=== PATIENT | female | born 1950 | race Caucasian/White ===

== ENCOUNTER 2020-01-17 17:21 | Outpatient (REF) | payer MEDICARE, OTHER, SELFPAY ==
--- NOTE | 2020-01-17 | MM_ITS ---
EXAMINATION: MM SCREENING DIGITAL BREAST TOMOSYNTHESIS, BILATERAL CLINICAL INFORMATION: Screening. Asymptomatic. Family history breast cancer in mother, age 60. The lifetime risk of breast cancer based on the Tyrer-Cuzick Model is 6%. COMPARISON: Mammography: 08/02/2018, 07/13/2017, 05/07/2016 TECHNIQUE: Digital breast tomosynthesis is performed in both the craniocaudal and mediolateral oblique views along with computer-aided detection (CAD). Synthesized 2D images are generated from the tomosynthesis. Additional left CC view is provided. FINDINGS: There are scattered areas of fibroglandular density (ACR BI-RADS breast composition Category b). Breast tissue composition borders on heterogeneously dense. There are no significant changes from prior studies. There are no significant masses, abnormal calcifications, or other abnormalities. IMPRESSION: No significant changes from prior studies. ASSESSMENT: BI-RADS 1: Negative RECOMMENDATION: Routine annual mammography screening. This patient's information was entered into a reminder system with a target due date for their next mammogram.
== END 2020-01-17 17:22 | disposition home or self-care (01) ==
LOC: HO.MAMMO 17:21
PROVIDERS: Visit Provider Internal Medicine
DX: Z12.31 Encounter for screening mammogram for malignant neoplasm of breast (principal)
CPT/HCPCS: 77063; 77067

== ENCOUNTER 2020-01-24 13:32 | Emergency (ER) | payer MEDICARE, BC, SELFPAY ==
--- NOTE | 2020-01-24 16:14 | PC.NURSE ---
called x 1 for triage
[2020-01-24 16:21] VITALS: BP 124/61; PULSE 85; RESP 16; TEMP 36.6; O2SAT 97; BMI 44.9
[2020-01-24 16:49] LABS: Glucose Urine UA NEG (NEG); Leukocyte Esterase Urine 1+ (NEG); Nitrite Urine NEG (NEG); PH 5.5 (5.0-8.0); Specific Gravity - Urine 1.015 (1.005-1.025); Urine Blood 3+ (NEG); Urine Ketones NEG (NEG); Urine Protein TRACE MG/DL (NEG-TRACE)
[2020-01-24 16:50] LABS: Appearance Urine HAZY; Color Urine YELLOW
[2020-01-24 17:00] LABS: Bacteria Urine 1+ /LPF; Squamous Epithelial Cell Urine 1+ /LPF
[2020-01-24 18:16] VITALS: BP 104/47; PULSE 82; RESP 16; TEMP 36.6; O2SAT 97
--- NOTE | 2020-01-24 18:22 | ED.FEMALEGU ---
HPI - Female Genitourinary General Chief complaint: Urogenital-Female Stated complaint: blood in urine Time Seen by Provider: 01/24/20 17:18 Source: patient Mode of arrival: ambulatory Limitations: no limitations History of Present Illness HPI Narrative: 69-year-old female history of multiple frequent UTI, patient was diagnosed recently with UTI at urgent care patient was placed on antibiotic then patient 2 days later was called again and antibiotic was changed according to urine sensitivity culture. Patient owns finishing Macrobid as an antibiotic but patient noticed today having blood in the urine slight discomfort in her lower back. Related Data Allergies Allergy/AdvReac Type Severity Reaction Status Date / Time No Known Allergies Allergy Unverified 12/21/19 15:34 Review of Systems Review of Systems: all other systems are reviewed and are negative Constitutional: Reports as per HPI and Reports no additional constitutional complaints Eyes: Reports as per HPI and Reports no additional eye complaints Reports system reviewed and no additional complaints, except as documented Cardiovascular: Reports as per HPI and Reports no additional cardiovascular complaints Respiratory: Reports as per HPI and Reports no additional respiratory complaints Gastrointestinal: Reports as per HPI and Reports no additional gastrointestinal complaints Genitourinary: Reports no additional female genitourinary complaints Musculoskeletal: Reports no additional musculoskeletal complaints Skin/Breast: Reports system reviewed and no additional complaints, except as docu Psychiatric: Reports no additional psychiatric complaints Endocrine: Reports no additional endocrine complaints Hematologic/Lymphatic: Reports no additional hematologic/lymphatic complaints Allergic/Immunologic: Reports no additional allergic/immunologic complaints Reports system reviewed and no additional complaints, except as documented and Reports Abnormal speech present [facility] Past Medical History Medical History Kidney stones Social History Social History Advance Directives: No Advance Directives Information Provided: Yes Physical Exam Vital Signs: Vital Signs: Vital Signs Temp Pulse Resp BP Pulse Ox 01/24/20 18:16 97.8 F 82 16 104/47 L 97 01/24/20 16:21 97.9 F 85 16 124/61 97 Body Mass Index 44.9 vital signs have been reviewed as normal and appeared to be correct. Blood pressure normal. Heart rate normal. Respiration rate normal. Temperature normal. Oxygen saturation normal. Appearance: Alert. Oriented X3. No acute distress. Head: Normal external exam. Normocephalic. Atraumatic. No Avendaño signs noted. No raccoon eyes noted Eyes: PERRLA. EOMI. Conjunctiva and sclera normal. Eyelids normal. ENT: EAC normal. TM's Normal. Pharynx normal. Uvula midline. Moist mucous membranes. No trismus noted. No drooling noted. No muffled voice noted. Neck: Normal inspection. Neck supple. FROM. No adenopathy. Thyroid Normal. No meningeal signs. No neck mass noted. CVS: Normal heart rate and rhythm. Heart sound normal. No murmurs noted. Pulses normal throughout. Respiratory: No respiratory distress. Painless inspiration. Breath sounds normal. No wheezes/rales/rhonchi noted. Chest nontender. No accessory muscle usage noted or decreased air movement noted. Abdomen: Soft and nontender. Bowel sounds normal in all 4 quadrants. No distention noted. No organomegaly noted. No visible injury noted. Back: No CVA tenderness. Full range of motion noted. Skin: Skin warm and dry. Normal skin color. Normal skin turgor. No rashes/lesions/lacerations noted. Extremities: No lower extremity edema. Extremities exhibit normal range of motion. Extremities nontender. Neuro: Oriented X 3. No motor deficit. No sensory deficit. Reflexes normal. Course Course Course Narrative: 69-year-old female with frequent UTIs, patient was placed on antibiotic by urgent care then was changed, patient noticed she has been having blood in the urine, and bilateral flank pain. Patient almost finished her antibiotic (Macrobid). Will check patient's blood and vital sign. MDM - Female Genitourinary MDM Narrative Medical decision making narrative: patient eloped from the emergency department before getting labs or been fully evaluated. Lab Data Labs: Lab Results 01/24/20 Range/Units 16:41 Urine Color YELLOW Urine Appearance HAZY Urine pH 5.5 (5.0-8.0) Ur Specific [place] 1.015 (1.005-1.025) Urine Protein TRACE (NEG-TRACE) MG/DL Urine Glucose (UA) NEG (NEG) MG/DL Urine Ketones NEG (NEG) MG/DL Urine Blood 3+ H (NEG) Urine Nitrite NEG (NEG) Ur Leukocyte Esterase 1+ H (NEG) Urine RBC 15-29 H (0) /HPF Urine WBC 1-4 (0-4) /HPF Ur Squamous Epith Cells 1+ /LPF Urine Bacteria 1+ /LPF Discharge Plan Discharge Patient Disposition: Elopement Discharge Date/Time: 01/24/20 19:09
--- NOTE | 2020-01-24 19:04 | PC.NURSE ---
PT IS NOT AT BEDSIDE. MD AWARE.
== END 2020-01-24 19:09 | disposition left against medical advice (07) ==
PROVIDERS: Emergency Provider Emergency Medicine; PCP Internal Medicine
DX: R10.9 Unspecified abdominal pain (principal); R31.9 Hematuria, unspecified; F17.210 Nicotine dependence, cigarettes, uncomplicated; Z87.440 Personal history of urinary (tract) infections
CPT/HCPCS: 81001; 87086; 99283

== ENCOUNTER 2020-01-25 11:12 | Outpatient (REF) | payer MEDICARE, OTHER, SELFPAY | END 2020-01-25 11:13 | disposition home or self-care (01) | LOC: HO.LAB 11:12 | PROVIDERS: Visit Provider Nurse Practitioner Family | DX: Z13.9 Encounter for screening, unspecified (principal) | CPT/HCPCS: 87086 ==

== ENCOUNTER 2020-01-31 13:14 | Outpatient (REF) | payer MEDICARE, OTHER, SELFPAY ==
[2020-01-31 13:51] LABS: Glucose Urine UA NEG (NEG); Leukocyte Esterase Urine NEG (NEG); Nitrite Urine NEG (NEG); Urine Blood 3+ (NEG); Urine Ketones NEG (NEG); Urine Protein NEG (NEG-TRACE)
[2020-01-31 13:55] LABS: Appearance Urine CLEAR; Color Urine YELLOW
[2020-01-31 13:59] LABS: Squamous Epithelial Cell Urine 4+ /LPF
== END 2020-01-31 13:15 | disposition home or self-care (01) ==
LOC: HO.HMGCLDS 13:14
PROVIDERS: PCP Internal Medicine; Visit Provider Internal Medicine
DX: R30.0 Dysuria (principal); E78.9 Disorder of lipoprotein metabolism, unspecified; G47.9 Sleep disorder, unspecified; F41.1 Generalized anxiety disorder
CPT/HCPCS: 81001

== ENCOUNTER 2020-02-20 15:47 | Outpatient (REF) | payer MEDICARE, BC, SELFPAY | END 2020-02-20 15:48 | disposition home or self-care (01) | LOC: HO.LAB 15:47 | PROVIDERS: PCP Internal Medicine; Visit Provider Internal Medicine | DX: Z20.828 Contact with and (suspected) exposure to other viral communicable diseases (principal) | CPT/HCPCS: C9803; U0003 ==

== ENCOUNTER 2020-05-01 12:01 | Outpatient (REF) | payer MEDICARE, BC, SELFPAY ==
[2020-05-01 14:48] LABS: Alanine Aminotransferase 14 U/L (0-31); Albumin Level 4.3 g/dL (3.5-5.0); Alkaline Phosphatase 58 U/L (39-117); Anion Gap 16 (12-20); Aspartate Amino Transferase 22 U/L (5-31); Bilirubin Direct 0.2 mg/dL (0.0-0.5); Bilirubin Total 0.7 mg/dL (0.0-1.0); Blood Urea Nitrogen 20 mg/dL (9-16); Calcium 9.1 mg/dL (8.4-10.2); Carbon Dioxide 23 mmol/L (22-29); Chloride 103 mmol/L (96-108); Estimated Glomerular Filt Rate > 60; Glucose Random 110 mg/dL (60-115); Potassium 4.9 mmol/l (3.3-5.1); Sodium 137 mmol/L (135-145); Total Protein 7.1 g/dL (6.5-8.0)
[2020-05-02 02:13] LABS: LDL Cholesterol Direct 170 mg/dL (<100)
== END 2020-05-01 12:02 | disposition home or self-care (01) ==
LOC: HO.HMGCLDS 12:01
PROVIDERS: PCP Internal Medicine; Visit Provider Internal Medicine
DX: E78.9 Disorder of lipoprotein metabolism, unspecified (principal); G47.9 Sleep disorder, unspecified; F41.1 Generalized anxiety disorder
CPT/HCPCS: 36415; 80048; 80076; 83721

== ENCOUNTER 2021-01-28 12:04 | Outpatient (REF) | payer MEDICARE, BC, SELFPAY ==
[2021-01-28 14:10] LABS: Alanine Aminotransferase 10 U/L (0-31); Albumin Level 4.2 g/dL (3.5-5.0); Alkaline Phosphatase 58 U/L (39-117); Aspartate Amino Transferase 19 U/L (5-31); Bilirubin Direct 0.2 mg/dL (0.0-0.5); Bilirubin Total 0.5 mg/dL (0.0-1.0); Cholesterol 187 mg/dL; HDL Cholesterol 54 mg/dL; LDL Cholesterol Calculated 112 mg/dl; Total Protein 6.7 g/dL (6.5-8.0); Triglycerides 108 mg/dL
== END 2021-01-28 12:05 | disposition home or self-care (01) ==
LOC: HO.HMGCLDS 12:04
PROVIDERS: PCP Internal Medicine; Visit Provider Internal Medicine
DX: E78.9 Disorder of lipoprotein metabolism, unspecified (principal)
CPT/HCPCS: 36415; 80061; 80076

== ENCOUNTER 2021-02-20 13:48 | Outpatient (REF) | payer MEDICARE, BC, SELFPAY ==
--- NOTE | ~2021-02-20 | MM_ITS ---
EXAMINATION: MM SCREENING DIGITAL BREAST TOMOSYNTHESIS, BILATERAL CLINICAL INFORMATION: Screening. Asymptomatic. The lifetime risk of breast cancer based on the Tyrer-Cuzick Model is 7%. COMPARISON: Mammography: 01/17/2020 and prior exams dating back to 05/09/2012 TECHNIQUE: Digital breast tomosynthesis is performed in both the craniocaudal and mediolateral oblique views along with computer-aided detection (CAD). Synthesized 2D images are generated from the tomosynthesis. Additional left MLO view is provided. FINDINGS: There are scattered areas of fibroglandular density (ACR BI-RADS breast composition Category b). There are no significant masses, abnormal calcifications, or other abnormalities. Breast tissue composition borders on heterogeneously dense in the outer quadrants similar to prior studies with no interval mass or architectural abnormality. No abnormal calcifications. MM/MM tomosynthesis screening BI IMPRESSION: No mammographic evidence of malignancy. ASSESSMENT: BI-RADS 1: Negative RECOMMENDATION: Routine annual mammography screening. This patient's information was entered into a reminder system with a target due date for their next mammogram.
== END 2021-02-20 13:49 | disposition home or self-care (01) ==
LOC: HO.MAMMO 13:48
PROVIDERS: PCP Internal Medicine; Visit Provider Internal Medicine
DX: Z12.31 Encounter for screening mammogram for malignant neoplasm of breast (principal)
CPT/HCPCS: 77063; 77067

== ENCOUNTER 2021-08-12 08:47 | Outpatient (REF) | payer MEDICARE, BC, SELFPAY ==
[2021-08-12 12:03] LABS: Alanine Aminotransferase 13 U/L (0-31); Albumin Level 4.1 g/dL (3.5-5.0); Alkaline Phosphatase 52 U/L (39-117); Anion Gap 11 (12-20); Aspartate Amino Transferase 19 U/L (5-31); Bilirubin Total 0.4 mg/dL (0.0-1.0); Blood Urea Nitrogen 22 mg/dL (9-16); Calcium 9.4 mg/dL (8.4-10.2); Carbon Dioxide 27 mmol/L (22-29); Chloride 104 mmol/L (96-108); Estimated Glomerular Filt Rate > 60; Glucose Random 103 mg/dL (60-115); Potassium 4.7 mmol/L (3.3-5.1); Sodium 137 mmol/L (135-145); Total Protein 6.9 g/dL (6.5-8.0)
== END 2021-08-12 08:48 | disposition home or self-care (01) ==
LOC: HO.HMGCLDS 08:47
PROVIDERS: Visit Provider Internal Medicine
DX: E78.9 Disorder of lipoprotein metabolism, unspecified (principal)
CPT/HCPCS: 36415; 80053

== ENCOUNTER 2022-02-20 09:32 | Outpatient (REF) | payer MEDICARE, BC, SELFPAY ==
[2022-02-20 11:34] LABS: MANUAL DIFF FLAG NO
[2022-02-20 11:46] LABS: Basophils Absolute Auto 0.1 X10*3/uL (0.0-0.2); Basophils Percent Auto 0.9 % (0-2); Eosinophils Absolute Auto 0.1 X10*3/uL (0.0-0.4); Eosinophils Percent Auto 1.4 % (0-4); Hematocrit 41.6 % (37.0-47.0); Hemoglobin 13.1 g/dl (12.0-16.0); Imm Gran Abs Auto 0.02 X10*3/uL (0.00-0.03); Imm Gran Pct Auto 0.4 % (0.0-0.4); Lymphocytes Absolute Auto 1.5 X10*3/uL (1.2-4.9); Lymphocytes Percent Auto 27.5 % (20-40); Mean Corpuscular HGB Conc 31.5 g/dl (31.0-35.0); Mean Corpuscular Hemoglobin 30.5 pg (27.0-33.0); Mean Platelet Volume 10.3 fL (9.4-12.3); Monocytes Absolute Auto 0.5 X10*3/uL (0.1-1.2); Monocytes Percent Auto 8.4 % (2-11); Neutrophils Absolute Auto 3.4 x10*3/uL (2.0-8.3); Neutrophils Percent Auto 61.4 % (45-73); Platelet Count 253 X10*3/uL (160-400); Red Blood Count 4.29 X10*6/uL (4.20-5.50); Red Cell Distribution Width 13.8 % (11.0-16.0); White Blood Count 5.6 X10*3/uL (4.8-10.8)
[2022-02-20 12:32] LABS: Alanine Aminotransferase 15 U/L (0-31); Alkaline Phosphatase 62 U/L (39-117); Anion Gap 14 (12-20); Aspartate Amino Transferase 19 U/L (5-31); Bilirubin Total 0.4 mg/dL (0.0-1.0); Blood Urea Nitrogen 23 mg/dL (9-16); Calcium 9.6 mg/dL (8.4-10.2); Carbon Dioxide 28 mmol/L (22-29); Chloride 104 mmol/L (96-108); Cholesterol 260 mg/dL; Estimated Glomerular Filt Rate > 60; Glucose Fasting 106 mg/dL (60-99); HDL Cholesterol 59 mg/dL; LDL Cholesterol Calculated 178 mg/dl; Potassium 4.9 mmol/L (3.3-5.1); Sodium 141 mmol/L (135-145); Total Protein 7.1 g/dL (6.5-8.0); Triglycerides 115 mg/dL
[2022-02-20 12:59] LABS: Albumin Level 4.2 g/dL (3.5-5.0)
== END 2022-02-20 09:33 | disposition home or self-care (01) ==
LOC: HO.HMGCLDS 09:32
PROVIDERS: PCP Internal Medicine; Visit Provider Internal Medicine
DX: E78.9 Disorder of lipoprotein metabolism, unspecified (principal); F19.20 Other psychoactive substance dependence, uncomplicated; F41.1 Generalized anxiety disorder; G47.9 Sleep disorder, unspecified; Z72.0 Tobacco use
CPT/HCPCS: 36415; 80053; 80061; 85025

== ENCOUNTER 2022-04-29 12:32 | Outpatient (REF) | payer MEDICARE, SELFPAY ==
--- NOTE | ~2022-04-29 | MM_ITS ---
EXAMINATION: MM SCREENING DIGITAL BREAST TOMOSYNTHESIS, BILATERAL CLINICAL INFORMATION: Screening. Asymptomatic. The lifetime risk of breast cancer based on the Tyrer-Cuzick Model is 6%. COMPARISON: Mammography: 02/20/2021, 01/17/2020, 08/02/2018, 07/13/2017 TECHNIQUE: Digital breast tomosynthesis is performed in both the craniocaudal and mediolateral oblique views along with computer-aided detection (CAD). Synthesized 2D images are generated from the tomosynthesis. FINDINGS: The breasts are heterogeneously dense, which may obscure small masses (ACR BI-RADS breast composition Category c). There are no significant masses, abnormal calcifications, or other abnormalities. Breast tissue composition borders on average fibroglandular. Parenchymal pattern is similar to prior studies. There is a small round nodular asymmetry mid medial right breast on CC view similar to the prior studies. No developing density or architectural abnormality. The axilla are unremarkable. No significant changes. MM/MM tomosynthesis screening BI IMPRESSION: No mammographic evidence of malignancy. ASSESSMENT: BI-RADS 2: Benign RECOMMENDATION: Routine annual mammography screening. This patient's information was entered into a reminder system with a target due date for their next mammogram.
== END 2022-04-29 12:33 | disposition home or self-care (01) ==
LOC: HO.MAMMO 12:32
PROVIDERS: Visit Provider Internal Medicine
DX: Z12.31 Encounter for screening mammogram for malignant neoplasm of breast (principal)
CPT/HCPCS: 77063; 77067

== ENCOUNTER 2022-08-11 12:37 | Outpatient (REF) | payer MEDICARE, SELFPAY ==
[2022-08-11 14:54] LABS: Alanine Aminotransferase 11 U/L (0-31); Albumin Level 3.9 g/dL (3.5-5.0); Alkaline Phosphatase 50 U/L (39-117); Anion Gap 13 (12-20); Aspartate Amino Transferase 19 U/L (5-31); Bilirubin Total 0.6 mg/dL (0.0-1.0); Blood Urea Nitrogen 18 mg/dL (9-16); Calcium 9.1 mg/dL (8.4-10.2); Carbon Dioxide 23 mmol/L (22-29); Chloride 105 mmol/L (96-108); Cholesterol 180 mg/dL; Estimated Glomerular Filt Rate > 60; Glucose Fasting 137 mg/dL (60-99); HDL Cholesterol 55 mg/dL; LDL Cholesterol Calculated 105 mg/dl; Potassium 4.4 mmol/L (3.3-5.1); Sodium 137 mmol/L (135-145); Total Protein 6.3 g/dL (6.5-8.0); Triglycerides 103 mg/dL
== END 2022-08-11 12:38 | disposition home or self-care (01) ==
LOC: HO.HMGCLDS 12:37
PROVIDERS: PCP Internal Medicine; Visit Provider Internal Medicine
DX: E78.9 Disorder of lipoprotein metabolism, unspecified (principal)
CPT/HCPCS: 36415; 80053; 80061

== ENCOUNTER 2022-11-18 09:29 | Outpatient (REF) | payer MEDICARE, SELFPAY ==
[2022-11-18 11:39] LABS: Estimated Average Glucose 114 mg/dL; Hemoglobin A1c % 5.6 %
[2022-11-18 12:31] LABS: Alanine Aminotransferase 13 U/L (0-31); Alkaline Phosphatase 54 U/L (39-117); Anion Gap 10 (12-20); Aspartate Amino Transferase 18 U/L (5-31); Bilirubin Total 0.5 mg/dL (0.0-1.0); Blood Urea Nitrogen 18 mg/dL (9-16); Carbon Dioxide 27 mmol/L (22-29); Chloride 106 mmol/L (96-108); Cholesterol 162 mg/dL; Estimated Glomerular Filt Rate 59; Glucose Fasting 93 mg/dL (60-99); HDL Cholesterol 56 mg/dL; LDL Cholesterol Calculated 88 mg/dl; Potassium 4.2 mmol/L (3.3-5.1); Sodium 139 mmol/L (135-145); Total Protein 6.9 g/dL (6.5-8.0); Triglycerides 92 mg/dL
== END 2022-11-18 09:30 | disposition home or self-care (01) ==
LOC: HO.HMGCLDS 09:29
PROVIDERS: PCP Internal Medicine; Visit Provider Internal Medicine
DX: R73.9 Hyperglycemia, unspecified (principal); R82.90 Unspecified abnormal findings in urine; E78.9 Disorder of lipoprotein metabolism, unspecified; F41.1 Generalized anxiety disorder
CPT/HCPCS: 36415; 80053; 80061; 83036

== ENCOUNTER 2022-11-20 11:34 | Outpatient (AMB) | payer MEDICARE, SELFPAY ==
[2022-11-20 11:38] VITALS: BP 138/80; PULSE 104; O2SAT 95; BMI 20.7
--- NOTE | 2022-11-20 11:38 | A.OFFPC_ITS ---
Vital Signs 11/20/22 11:38 Height 5 ft 8 in Weight 136 lb 2 oz BMI 20.7 BP 138/80 Blood Pressure Location Lt brachial Position Sitting Pulse 104 H Pulse Source Pulse Oximeter Pulse Oximetry (%) 95 Oxygen Delivery Method Room Air Intake Visit Reasons: 3m follow up Allergies No Known Allergies Allergy (Verified 11/20/22 11:45) Medication List - Last Reconciled 11/20/22 by Abigail Riggs MD atorvastatin 40 mg PO DAILY 90 days fluoxetine 20 mg PO QAM lorazepam 0.5 mg PO DAILY PRN 90 days Tobacco use date assessed: 11/20/22 Fall risk assessment: No Falls in past year Last assessed Fall Risk: 11/20/22 Dental Screening Dental Screen Date: 11/20/22 Did you have a dental visit in the last 12 months?: No Did you have a dental problem in the last 6 months where you did not have access to dental care?: No Was dental information given to patient?: No HPI 3m follow up HPI Details Patient is 72-year-old female came in today for her regular 3 month follow-up appointment Patient is doing well complaints Labs done recently reviewed patient Anxiety disorder: She continue take fluoxetine 20 mg along with lorazepam 0.5 mg daily, patient is doing well I have sent 0.5 mg 90 tablets for next 3 months. Patient is taking atorvastatin 40 mg to control her lipids. Once again advised patient to stop smoking Follow-up 3 months [facility] Medical History Anxiety, generalized Difficulty sleeping Dysuria Kidney stones Lipid disorder Tobacco abuse Surgical History History of lithotripsy Family History Father COPD (chronic obstructive pulmonary disease) Mother COPD (chronic obstructive pulmonary disease) Breast cancer CHF (congestive heart failure) Colon cancer Maternal Grandmother No problems noted. Maternal Aunt Breast cancer Brother No problems noted. Sister Breast cancer Son No problems noted. Daughter No problems noted. Other Mental health disorder Social History Housing: House Alcohol intake: current Alcohol intake frequency: a few times a month Alcohol type: wine Patient Tobacco Use Status: Current everyday Tobacco user Cigarettes Per Day: 10 e-Cigarette/Vaping Use: Never Used service: No Current occupational status: retired Cognitive needs: No Hearing needs: No Vision needs: No Questionnaire Thrive Questionnaire Date Thrive assessed: 05/22/22 AUDIT C Alcohol Use Questionnaire (AUDIT-C) 1. How often do you have a drink containing alcohol?: Never 3. How often do you have six or more drinks on one occasion?: Never Total Score: 0 Score Reviewed/Action Taken: Yes JOSHUA-7 AMB Questionnaire JOSHUA-7 Date JOSHUA - 7 assessed: 05/22/22 Source: Developed by Drs. Juaquin Cowart, Lizzeth Tipton, Avelino Calle and colleagues, with an educational ventura from [employer]. Review of Systems Const Denies chills and Denies fever(s) ENT Denies epistaxis and Denies nasal discharge Card Denies chest pain Resp Denies chest congestion, Denies cough and Denies hemoptysis GI Denies diarrhea and Denies nausea Skin/Breast Denies rash Neuro Reports no additional complaints Psych Reports no additional complaints Endo Reports no additional complaints Physical exam (Primary Care) Vital Signs: Last Vital Signs Pulse 104 H 11/20/22 11:38 BP 138/80 11/20/22 11:38 Pulse Ox 95 11/20/22 11:38 Oxygen Delivery Method Room Air 11/20/22 11:38 BMI result Body Mass Index 20.7 Tobacco/Smoking Status: Tobacco use Status Tobacco use date assessed 11/20/22 11/20/22 11:46 Patient Tobacco Use Status Current everyday Tobacco 11/20/22 11:38 e-Cigarette/Vaping Use Never Used 11/20/22 11:38 Thrive Assessment: Date of Thrive Assessment Date Thrive assessed 05/22/22 11/20/22 11:38 Const General: cooperative, comfortable and no acute distress Orientation/consciousness: patient oriented x3 HENMT Head: Yes normocephalic Eyes General: appearance normal, both eyes and all related structures Neck Neck: Yes supple Resp Effort & Inspection: normal respiratory effort, no cough and no stridor Cardio Rhythm: regular rhythm Heart sounds: S1 normal heart sound present and S2 normal heart sound present Skin General skin exam: turgor normal Neuro General: patient oriented x3, tone normal and moves all extremities Extrem Right lower extremity: no edema Left lower extremity: no edema Assessment and Plan Assessment & Plan (1) Anxiety, generalized: Code(s): F41.1 - Generalized anxiety disorder (2) Lipid disorder: Code(s): E78.9 - Disorder of lipoprotein metabolism, unspecified (3) Difficulty sleeping: Code(s): G47.9 - Sleep disorder, unspecified (4) Tobacco abuse: Code(s): Z72.0 - Tobacco use (5) Drug dependency: Code(s): F19.20 - Other psychoactive substance dependence, uncomplicated Plan Patient is 72-year-old female came in today for her regular 3 month follow-up appointment Patient is doing well complaints Labs done recently reviewed patient Anxiety disorder: She continue take fluoxetine 20 mg along with lorazepam 0.5 mg daily, patient is doing well I have sent 0.5 mg 90 tablets for next 3 months. Patient is taking atorvastatin 40 mg to control her lipids. Once again advised patient to stop smoking Follow-up 3 months Medications: Refilled lorazepam 0.5 mg PO DAILY PRN 90 tabs 0RF anxiety 90 days F41.1 - Generalized anxiety disorder, G47.9 - Sleep disorder, unspecified Coding Level of Care Code Est Pt Level 3 (40422) Diagnoses Anxiety, generalized F41.1 Lipid disorder E78.9 Difficulty sleeping G47.9 Tobacco abuse Z72.0 Drug dependency F19.20
== END 2022-11-20 12:06 | disposition home or self-care (01) ==
PROVIDERS: Visit Provider Internal Medicine
DX: G47.9 Sleep disorder, unspecified (principal); F41.1 Generalized anxiety disorder; E78.9 Disorder of lipoprotein metabolism, unspecified; F19.20 Other psychoactive substance dependence, uncomplicated; Z72.0 Tobacco use
CPT/HCPCS: 99213

== ENCOUNTER 2023-02-19 09:45 | Outpatient (AMB) | payer MEDICARE, SELFPAY ==
[2023-02-19 09:48] VITALS: BP 148/66; PULSE 104; O2SAT 97; BMI 20.3
--- NOTE | 2023-02-19 09:48 | MHC.PC.OV ---
Vital Signs 02/19/23 09:48 Height 5 ft 8 in Weight 133 lb 6 oz BMI 20.3 BP 148/66 H Blood Pressure Location Rt brachial Position Sitting Pulse 104 H Pulse Source Pulse Oximeter Pulse Oximetry (%) 97 Oxygen Delivery Method Room Air Intake Visit Reasons: 3 Month follow up Allergies No Known Allergies Allergy (Verified 02/19/23 09:48) Medication List - Last Reconciled 02/19/23 by Abigail Riggs MD atorvastatin 40 mg PO DAILY 90 days fluoxetine 20 mg PO QAM lorazepam 0.5 mg PO DAILY PRN 90 days Tobacco use date assessed: 02/19/23 Fall risk assessment: No Falls in past year Last assessed Fall Risk: 02/19/23 Dental Screening Dental Screen Date: 02/19/23 Did you have a dental visit in the last 12 months?: Yes Did you have a dental problem in the last 6 months where you did not have access to dental care?: No Was dental information given to patient?: Patient has dentist HPI 3 Month follow up HPI Details Patient is 73-year-old female came in today for her regular 3 month follow-up appointment Patient continued to smoke half a pack per day, she is trying to quit gradually Ordering pulmonary function test with the patient, on examination there is minimal airflow through her lungs. She has a long history of tobacco abuse Anxiety disorder: She continue take fluoxetine 20 mg along with lorazepam 0.5 mg daily, patient is doing well I have sent 0.5 mg 90 tablets for next 3 months. Patient is taking atorvastatin 40 mg to control her lipids. Labs to be done before next visit Follow-up 3 months [facility] Medical History Tobacco abuse Dysuria Lipid disorder Difficulty sleeping Anxiety, generalized Kidney stones Surgical History History of lithotripsy Family History Father COPD (chronic obstructive pulmonary disease) Mother COPD (chronic obstructive pulmonary disease) Breast cancer CHF (congestive heart failure) Colon cancer Maternal Grandmother No problems noted. Maternal Aunt Breast cancer Brother No problems noted. Sister Breast cancer Son No problems noted. Daughter No problems noted. Other Mental health disorder Social History Housing: House Alcohol intake: current Alcohol intake frequency: a few times a month Alcohol type: wine Patient Tobacco Use Status: Current everyday Tobacco user Cigarettes Per Day: 10 e-Cigarette/Vaping Use: Never Used service: No Current occupational status: retired Cognitive needs: No Hearing needs: No Vision needs: No Questionnaire Thrive Questionnaire Date Thrive assessed: 05/22/22 AUDIT C Alcohol Use Questionnaire (AUDIT-C) 1. How often do you have a drink containing alcohol?: Never 3. How often do you have six or more drinks on one occasion?: Never Total Score: 0 Score Reviewed/Action Taken: Yes JOSHUA-7 AMB Questionnaire JOSHUA-7 Date JOSHUA - 7 assessed: 05/22/22 Source: Developed by Drs. Juaquin Cowart, Lizzeth Tipton, Avelino Calle and colleagues, with an educational ventura from [employer]. Review of Systems Const Denies chills and Denies fever(s) ENT Denies epistaxis and Denies nasal discharge Card Denies chest pain Resp Denies chest congestion, Denies cough and Denies hemoptysis GI Denies diarrhea and Denies nausea Skin/Breast Denies rash Neuro Reports no additional complaints Psych Reports no additional complaints Endo Reports no additional complaints Physical exam (Primary Care) Vital Signs: Last Vital Signs Pulse 104 H 02/19/23 09:48 BP 148/66 H 02/19/23 09:48 Pulse Ox 97 02/19/23 09:48 Oxygen Delivery Method Room Air 02/19/23 09:48 BMI result Body Mass Index 20.3 Tobacco/Smoking Status: Tobacco use Status Tobacco use date assessed 02/19/23 02/19/23 09:50 Patient Tobacco Use Status Current everyday Tobacco 02/19/23 09:50 e-Cigarette/Vaping Use Never Used 02/19/23 09:50 Thrive Assessment: Date of Thrive Assessment Date Thrive assessed 05/22/22 02/19/23 09:50 Const General: cooperative, comfortable and no acute distress Orientation/consciousness: patient oriented x3 HENMT Head: Yes normocephalic Eyes General: appearance normal, both eyes and all related structures Neck Neck: Yes supple Resp Effort & Inspection: normal respiratory effort, no cough and no stridor Cardio Rhythm: regular rhythm Heart sounds: S1 normal heart sound present and S2 normal heart sound present Skin General skin exam: turgor normal Neuro General: patient oriented x3, tone normal and moves all extremities Extrem Right lower extremity: no edema Left lower extremity: no edema Assessment and Plan Assessment & Plan (1) Anxiety, generalized: Code(s): F41.1 - Generalized anxiety disorder (2) COPD (chronic obstructive pulmonary disease): Code(s): J44.9 - Chronic obstructive pulmonary disease, unspecified Qualifiers: COPD type: emphysema Emphysema type: panlobular Qualified Code(s): J43.1 - Panlobular emphysema (3) Drug dependency: Code(s): F19.20 - Other psychoactive substance dependence, uncomplicated (4) Difficulty sleeping: Code(s): G47.9 - Sleep disorder, unspecified (5) Lipid disorder: Code(s): E78.9 - Disorder of lipoprotein metabolism, unspecified (6) Tobacco abuse: Code(s): Z72.0 - Tobacco use (7) Elevated blood sugar: Code(s): R73.9 - Hyperglycemia, unspecified Plan Patient is 73-year-old female came in today for her regular 3 month follow-up appointment Patient continued to smoke half a pack per day, she is trying to quit gradually Ordering pulmonary function test with the patient, on examination there is minimal airflow through her lungs. She has a long history of tobacco abuse Anxiety disorder: She continue take fluoxetine 20 mg along with lorazepam 0.5 mg daily, patient is doing well I have sent 0.5 mg 90 tablets for next 3 months. Patient is taking atorvastatin 40 mg to control her lipids. Labs to be done before next visit Follow-up 3 months Orders: Orders Comprehensive [place]. Panel Fast Today E78.9 - Disorder of lipoprotein metabolism, unspecified, F19.20 - Other psychoactive substance dependence, uncomplicated, F41.1 - Generalized anxiety disorder, G47.9 - Sleep disorder, unspecified, R73.9 - Hyperglycemia, unspecified, Z72.0 - Tobacco use Hemoglobin A1c Today E78.9 - Disorder of lipoprotein metabolism, unspecified, F19.20 - Other psychoactive substance dependence, uncomplicated, F41.1 - Generalized anxiety disorder, G47.9 - Sleep disorder, unspecified, R73.9 - Hyperglycemia, unspecified, Z72.0 - Tobacco use PFT pulmonary function test Today J44.9 - Chronic obstructive pulmonary disease, unspecified Complete Blood Count Auto Diff Today E78.9 - Disorder of lipoprotein metabolism, unspecified, F19.20 - Other psychoactive substance dependence, uncomplicated, F41.1 - Generalized anxiety disorder, G47.9 - Sleep disorder, unspecified, R73.9 - Hyperglycemia, unspecified, Z72.0 - Tobacco use Lipid Panel Today E78.9 - Disorder of lipoprotein metabolism, unspecified, F19.20 - Other psychoactive substance dependence, uncomplicated, F41.1 - Generalized anxiety disorder, G47.9 - Sleep disorder, unspecified, R73.9 - Hyperglycemia, unspecified, Z72.0 - Tobacco use Medications: Refilled lorazepam 0.5 mg PO DAILY PRN 90 tabs 0RF anxiety 90 days F41.1 - Generalized anxiety disorder, G47.9 - Sleep disorder, unspecified atorvastatin 40 mg PO DAILY 90 tabs 0RF 90 days fluoxetine 20 mg PO QAM 90 caps 0RF Coding Level of Care Code Est Pt Level 4 (79829) Diagnoses Anxiety, generalized F41.1 Panlobular emphysema J43.1 COPD type: emphysema Emphysema type: panlobular Drug dependency F19.20 Difficulty sleeping G47.9 Lipid disorder E78.9 Tobacco abuse Z72.0 Elevated blood sugar R73.9
== END 2023-02-19 10:04 | disposition home or self-care (01) ==
PROVIDERS: PCP Internal Medicine; Visit Provider Internal Medicine
DX: F41.1 Generalized anxiety disorder (principal); J43.1 Panlobular emphysema; F19.20 Other psychoactive substance dependence, uncomplicated; G47.9 Sleep disorder, unspecified; E78.9 Disorder of lipoprotein metabolism, unspecified; Z72.0 Tobacco use; R73.9 Hyperglycemia, unspecified
CPT/HCPCS: 99214

== ENCOUNTER 2023-05-05 12:31 | Outpatient (REF) | payer MEDICARE, SELFPAY | END 2023-05-05 12:32 | disposition home or self-care (01) | LOC: HO.MAMMO 12:31 | PROVIDERS: PCP Internal Medicine; Visit Provider Internal Medicine | DX: Z12.31 Encounter for screening mammogram for malignant neoplasm of breast (principal) | CPT/HCPCS: 77063; 77067 ==

== ENCOUNTER → 2023-05-05 12:45 | Outpatient (BNV) | payer MEDICARE, SELFPAY | PROVIDERS: PCP Internal Medicine; Visit Provider Radiology Diagnostic Radiology | DX: Z12.31 Encounter for screening mammogram for malignant neoplasm of breast (principal) | CPT/HCPCS: 77063; 77067 ==

== ENCOUNTER 2023-05-17 08:22 | Outpatient (REF) | payer MEDICARE, SELFPAY ==
[2023-05-17 11:48] LABS: MANUAL DIFF FLAG NO
[2023-05-17 12:21] LABS: Estimated Average Glucose 111 mg/dL; Hemoglobin A1c % 5.5 % (<6.0)
[2023-05-17 12:26] LABS: Alanine Aminotransferase 14 U/L (0-31); Albumin Level 3.8 g/dL (3.5-5.0); Alkaline Phosphatase 52 U/L (39-117); Anion Gap 13 (12-20); Aspartate Amino Transferase 20 U/L (5-31); Bilirubin Total 0.4 mg/dL (0.0-1.0); Blood Urea Nitrogen 24 mg/dL (9-16); Carbon Dioxide 25 mmol/L (22-29); Chloride 103 mmol/L (96-108); Cholesterol 168 mg/dL (<200); Estimated Glomerular Filt Rate 59; Glucose Fasting 100 mg/dL (60-99); HDL Cholesterol 62 mg/dL (>40); LDL Cholesterol Calculated 94 mg/dL (<100); Potassium 4.5 mmol/L (3.3-5.1); Sodium 136 mmol/L (135-145); Total Protein 6.6 g/dL (6.5-8.0); Triglycerides 64 mg/dL (<150)
[2023-05-17 12:32] LABS: Basophils Absolute Auto 0.1 X10*3/uL (0.0-0.2); Basophils Percent Auto 0.9 % (0-2); Eosinophils Absolute Auto 0.1 X10*3/uL (0.0-0.4); Eosinophils Percent Auto 2.5 % (0-4); Hematocrit 37.7 % (37.0-47.0); Hemoglobin 12.2 g/dl (12.0-16.0); Imm Gran Abs Auto 0.02 X10*3/uL (0.00-0.03); Imm Gran Pct Auto 0.4 % (0.0-0.4); Lymphocytes Absolute Auto 1.4 X10*3/uL (1.2-4.9); Lymphocytes Percent Auto 25.7 % (20-40); Mean Corpuscular HGB Conc 32.4 g/dl (31.0-35.0); Mean Corpuscular Hemoglobin 30.6 pg (27.0-33.0); Mean Corpuscular Volume 94.5 fL (80.0-98.0); Mean Platelet Volume 10.5 fL (9.4-12.3); Monocytes Absolute Auto 0.5 X10*3/uL (0.1-1.2); Monocytes Percent Auto 9.6 % (2-11); Neutrophils Absolute Auto 3.4 x10*3/uL (2.0-8.3); Neutrophils Percent Auto 60.9 % (45-73); Platelet Count 214 X10*3/uL (160-400); Red Blood Count 3.99 X10*6/uL (4.20-5.50); Red Cell Distribution Width 13.7 % (11.0-16.0); White Blood Count 5.6 X10*3/uL (4.8-10.8)
== END 2023-05-17 08:23 | disposition home or self-care (01) ==
LOC: HO.HMGCLDS 08:22
PROVIDERS: PCP Internal Medicine; Visit Provider Internal Medicine
DX: F41.1 Generalized anxiety disorder (principal); G47.9 Sleep disorder, unspecified; E78.9 Disorder of lipoprotein metabolism, unspecified; F19.20 Other psychoactive substance dependence, uncomplicated; R73.9 Hyperglycemia, unspecified; Z72.0 Tobacco use
CPT/HCPCS: 36415; 80053; 80061; 83036; 85025

== ENCOUNTER 2023-05-21 10:22 | Outpatient (AMB) | payer MEDICARE, SELFPAY ==
--- NOTE | 2023-05-21 10:24 | AM.OFFVISMDC ---
Intake Vital Signs 05/21/23 10:25 Height 5 ft 8 in Weight 135 lb BMI 20.5 BP 126/72 Blood Pressure Location Lt brachial Position Sitting Pulse 95 Pulse Source Pulse Oximeter Pulse Oximetry (%) 96 Oxygen Delivery Method Room Air Intake Visit Reasons: Annual Wellness visit Allergies No Known Allergies Allergy (Verified 05/21/23 10:25) Medication List - Last Reconciled 05/21/23 by Abigail Riggs MD atorvastatin 40 mg PO DAILY 90 days fluoxetine 20 mg PO QAM lorazepam 0.5 mg PO DAILY PRN 90 days Do you need a note to return to daycare/school/sports/work: No HPI Annual Wellness visit HPI Details Patient is 73-year-old female came in today for her regular follow-up visit and Medicare wellness visit. Patient is taking all her medications no side effect She has a history of anxiety disorder: For that she is taking lorazepam, complying with the treatment plan no signs of abuse And fluoxetine 20 mg Patient is on atorvastatin 40 mg for lipid control Mammogram is up-to-date Colonoscopy will be next year She is no longer having Pap smears Patient is seeing Dr. Hoyos Urology f as she has a history of renal calculi Continue to smoke half a pack per day patient says that she is trying to quit HPI Comments History of Present Illness Details AWV Medical/social history reviewed Past medical history reviewed Wall of care / care team list updated Surgical/ hospitalization history reviewed Current medications including OTC and supplements reviewed Family history reviewed Tobacco controlled form updated Alcohol use form updated Illicit drug use in social history reviewed Current diagnosis of depression ?screening updated Appropriate PHQ 2/PHQ-9 completed . Vital signs reviewed Alcohol tobacco drug use reviewed and discussed . MMSE completed . ? Fall risk: ?Assessed Fall history: ?None Have you had any falls with injury in the past year?? No Have you had 2 or more falls in the past year?? No Fall risk assessment completed Home safety discussed with the patient Functional ability assessed and discussed and documented Activities of daily living reviewed and appropriate actions taken . HRA filled out by the patient and reviewed by provider and scanned . Appropriate written screening schedule established . Any health advise needed provided . Advance care planning discussed with the patient , necessary paperwork filled Examination IPPE/AWE: Balance intact Romberg intact Tandem walk intact walk-in turn intact rise from sit to stand intact . ?Hearing ?whisper test pass . Medication list reviewed, patient is stable on medications All other providers patient is seeing discussed and noted . PENDING SALE TO [facility] Medical History Tobacco abuse Dysuria Lipid disorder Difficulty sleeping Anxiety, generalized Kidney stones Surgical History History of lithotripsy Family History Father COPD (chronic obstructive pulmonary disease) Mother COPD (chronic obstructive pulmonary disease) Breast cancer CHF (congestive heart failure) Colon cancer Maternal Grandmother No problems noted. Maternal Aunt Breast cancer Brother No problems noted. Sister Breast cancer Son No problems noted. Daughter No problems noted. Other Mental health disorder Social History Housing: House Alcohol intake: current Alcohol intake frequency: a few times a month Alcohol type: wine Patient Tobacco Use Status: Current everyday Tobacco user Cigarettes Per Day: 10 e-Cigarette/Vaping Use: Never Used service: No Current occupational status: retired Cognitive needs: No Hearing needs: No Vision needs: No Questionnaire Medicare Wellness Checkup [age] What gender do you identify with?: female During the past 4 weeks, how much have you been bothered by emotional problems such as feeling anxious, depressed, irritable, sad or downhearted, and blue?: not at all During the past 4 weeks, has your physical & emotional health limited your social activities with family, friends, neighbors, or groups?: not at all During the past 4 weeks, how much bodily pain have you generally had?: very mild pain During the past 4 weeks, was someone available to help you if you needed & wanted help?: no, not at all During the past 4 weeks, what was the hardest physical activity you could do for at least 2 minutes?: moderate Can you get to places out of walking distance without help? (For eg., can you travel alone on buses, taxis or drive your car?): Yes Can you go shopping for groceries or clothes without someone's help?: Yes Can you prepare your own meals?: Yes Can you do your housework without help?: Yes Because of any health problems, do you need the help of another person with your personal care needs such as eating, bathing, dressing or getting around the house?: No Can you handle your own money without help?: Yes During the past 4 weeks, how would you rate your health in general?: good During the past 4 weeks how have things been going for you?: pretty well Are you having difficulties driving your car?: no Do you always fasten your seat belt when you are in a car?: yes, usually During past 4 weeks, have you been bothered by the following: never: Falling or dizzy when standing up, Sexual problems?, Trouble eating well? and Problems using the telephone?, seldom: Teeth or denture problems? and sometimes: Tiredness or fatigue? Have you fallen 2 or more times in the past year?: No Are you afraid of falling?: No Are you a smoker?: yes, and I might quit During the past 4 weeks, how many drinks of wine, beer, or other alcoholic beverages did you have?: 1 drink or less per week Do you exercise for about 20 minutes 3 or more times a week?: yes, most of the time Have you been given information to help with the following?: yes: Keeping track of your medications? and no: Hazards in your house that might hurt you? How often do you have trouble taking medicines the way you have been told to take them?: I always take medicine as prescribed How confident are you that you can control & manage most of your health problems?: very confident What is your race?: White Mini Mental State Exam (MMSE) Orientation What is the (year) (season) (date) (day) (month)?: year, season, date, day and month Where are we (state) (county) (town or city) (hospital) (floor)?: state, county, town or city, hospital/clinic and floor Score Score: 10 Activity of Daily Living Bathing - sponge bath, tub bath or shower: receives no assistance (gets in/out by self, if usual bathing means Dressing - getting clothes from closets & drawers, including inner/outer garments & fasteners.: gets clothes & gets completely dressed without help Toileting - going to the 'toilet room' for urine/bowel elimination & cleaning self/arranging clothes: goes to toilet room, cleans self, arranges clothes without help Transfer: moves in & out of bed and chair without help (may use support object) Continence: controls urination/bowel movements completely by self Feeding: feeds self without help Total Score: 0 Information obtained from: patient Using telephone: independent Traveling: independent Shopping: independent Preparing meals: independent Housework: independent Taking medicine: independent Managing money: independent PHQ-9 Over the last 2 weeks, how often have you been bothered by any of the following problems? 1. Little interest or pleasure in doing things: not at all 2. Feeling down, depressed, or hopeless: not at all 3. Trouble falling or staying asleep, or sleeping too much: more than half the days 4. Feeling tired or having little energy: several days 5. Poor appetite or overeating: not at all 6. Feeling bad about yourself - or that you are a failure or have let yourself or your family down: not at all 7. Trouble concentrating on things, such as reading the newspaper or watching television: not at all 8. Moving or speaking so slowly that other people could have noticed. Or the opposite - being so fidgety or restless that you have been moving around a lot more than usual: not at all 9. Thoughts that you would be better off or of hurting yourself in some way: not at all Total score: 3 Depression Screening Interpretation: Negative Depression Screening Done: Yes 31107 - PHQ-9 Billing: Yes Source: Developed by Drs. Juaquin Cowart, Lizzeth Tipton, Avelino Calle and colleagues, with an educational ventura from [employer]. Review of Systems Const Denies chills and Denies fever(s) ENT Denies epistaxis and Denies nasal discharge Card Denies chest pain Resp Denies chest congestion, Denies cough and Denies hemoptysis GI Denies diarrhea and Denies nausea Skin/Breast Denies rash Neuro Reports no additional complaints Psych Reports no additional complaints Endo Reports no additional complaints Physical Exam Vital Signs: Last Vital Signs Pulse 95 05/21/23 10:25 BP 126/72 05/21/23 10:25 Pulse Ox 96 05/21/23 10:25 Oxygen Delivery Method Room Air 05/21/23 10:25 BMI result Body Mass Index 20.5 Const General: cooperative, comfortable and no acute distress Orientation/consciousness: patient oriented x3 HEENT Head: Yes normocephalic Eyes General: appearance normal, both eyes and all related structures Neck Other: Supple Neck: Yes supple Resp Effort & Inspection: normal respiratory effort, no cough and no stridor Cardio Rhythm: regular rhythm Heart sounds: S1 normal heart sound present and S2 normal heart sound present Skin General skin exam: turgor normal Neuro Other: Motor sensory intact General: patient oriented x3, tone normal and moves all extremities Extrem Other: No lower extremity swelling. Right lower extremity: no edema Left lower extremity: no edema Psych Other: Normal effect, speech clear Assessment & Plan Assessment & Plan (1) Medicare annual wellness visit, subsequent: Code(s): Z00.00 - Encounter for general adult medical examination without abnormal findings (2) Anxiety, generalized: Code(s): F41.1 - Generalized anxiety disorder (3) Difficulty sleeping: Code(s): G47.9 - Sleep disorder, unspecified (4) Lipid disorder: Code(s): E78.9 - Disorder of lipoprotein metabolism, unspecified (5) Tobacco abuse: Code(s): Z72.0 - Tobacco use Plan Patient is 73-year-old female came in today for her regular follow-up visit and Medicare wellness visit. Patient is taking all her medications no side effect She has a history of anxiety disorder: For that she is taking lorazepam, complying with the treatment plan no signs of abuse And fluoxetine 20 mg Patient is on atorvastatin 40 mg for lipid control Mammogram is up-to-date Colonoscopy will be next year She is no longer having Pap smears Patient is seeing Dr. Hoyos Urology f as she has a history of renal calculi Continue to smoke half a pack per day patient says that she is trying to quit Medications: Refilled lorazepam 0.5 mg PO DAILY PRN 90 tabs 0RF anxiety 90 days F41.1 - Generalized anxiety disorder, G47.9 - Sleep disorder, unspecified atorvastatin 40 mg PO DAILY 90 tabs 0RF 90 days fluoxetine 20 mg PO QAM 90 caps 0RF Quality Reporting (2019) Depression/Bipolar (159/160/161/177) PHQ-9: Total score: 3 Coding Level of Care Code Medicare Subsequent (G0439) Est Pt Level 3 (01357) Diagnoses Medicare annual wellness visit, subsequent Z00.00 Anxiety, generalized F41.1 Difficulty sleeping G47.9 Lipid disorder E78.9 Tobacco abuse Z72.0 CPT Codes Advance Care Planning - Time spent: 1-15 minutes, not on file ([id number]) Advance Care Planning Forms completed: Health Care Proxy and MOLST Time spent: 1-15 minutes, not on file
[2023-05-21 10:25] VITALS: BP 126/72; PULSE 95; O2SAT 96; BMI 20.5
== END 2023-05-21 10:52 | disposition home or self-care (01) ==
PROVIDERS: PCP Internal Medicine; Visit Provider Internal Medicine
DX: Z00.00 Encounter for general adult medical examination without abnormal findings (principal); F41.1 Generalized anxiety disorder; G47.9 Sleep disorder, unspecified; E78.9 Disorder of lipoprotein metabolism, unspecified; Z72.0 Tobacco use
CPT/HCPCS: 1124F; G0439

== ENCOUNTER 2023-08-17 09:19 | Outpatient (AMB) | payer MEDICARE, SELFPAY ==
[2023-08-17 09:26] VITALS: BP 142/68; PULSE 106; O2SAT 96; BMI 20.8
--- NOTE | 2023-08-17 09:26 | MHC.PC.OV ---
Vital Signs 08/17/23 09:26 Height 5 ft 8 in Weight 136 lb 8 oz BMI 20.8 BP 142/68 H Blood Pressure Location Rt brachial Position Sitting Pulse 106 H Pulse Source Pulse Oximeter Pulse Oximetry (%) 96 Oxygen Delivery Method Room Air Intake Visit Reasons: 3 month follow up Allergies No Known Allergies Allergy (Verified 08/17/23 09:28) Medication List - Last Reconciled 08/17/23 by Abigail Riggs MD atorvastatin 40 mg PO DAILY 90 days cephalexin 250 mg PO BID fluoxetine 20 mg PO QAM lorazepam 0.5 mg PO DAILY PRN 90 days Tobacco use date assessed: 08/17/23 Fall risk assessment: No Falls in past year Last assessed Fall Risk: 08/17/23 Dental Screening Dental Screen Date: 08/17/23 Did you have a dental visit in the last 12 months?: No Did you have a dental problem in the last 6 months where you did not have access to dental care?: No Was dental information given to patient?: No HPI 3 month follow up HPI Details Patient is 73-year-old female came in today for her regular 3 month follow-up appointment Patient have history of renal calculi, 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 Hoyos as her urologist and is scheduled to have surgery for right renal stone on September 19 Patient continued to smoke half a pack per day, she is trying to quit gradually I did order pulmonary function test last visit but she has not done it Anxiety disorder: She continue take fluoxetine 20 mg along with lorazepam 0.5 mg daily, patient is doing well I have sent 0.5 mg 90 tablets for next 3 months. Patient is taking atorvastatin 40 mg to control her lipids. Impaired fasting sugar: Last fasting sugar was 100 done May of this year Follow-up 3 months [facility], [facility] Medical History Tobacco abuse Dysuria Lipid disorder Difficulty sleeping Anxiety, generalized Kidney stones Surgical History History of lithotripsy Family History Father COPD (chronic obstructive pulmonary disease) Mother COPD (chronic obstructive pulmonary disease) Breast cancer CHF (congestive heart failure) Colon cancer Maternal Grandmother No problems noted. Maternal Aunt Breast cancer Brother No problems noted. Sister Breast cancer Son No problems noted. Daughter No problems noted. Other Mental health disorder Social History Housing: House Alcohol intake: current Alcohol intake frequency: a few times a month Alcohol type: wine Patient Tobacco Use Status: Current everyday Tobacco user Cigarettes Per Day: 10 e-Cigarette/Vaping Use: Never Used service: No Current occupational status: retired Cognitive needs: No Hearing needs: No Vision needs: No Questionnaire Thrive Questionnaire Date Thrive assessed: 05/22/22 AUDIT C Alcohol Use Questionnaire (AUDIT-C) 1. How often do you have a drink containing alcohol?: Never 3. How often do you have six or more drinks on one occasion?: Never Total Score: 0 Score Reviewed/Action Taken: Yes JOSHUA-7 AMB Questionnaire JOSHUA-7 Date JOSHUA - 7 assessed: 08/17/23 Feeling nervous, anxious, or on edge: 1 = Several days Not being able to stop or control worryin = Several days Worrying too much about different things: 1 = Several days Trouble relaxin = Several days Being so restless that it is hard to sit still: 0 = Not at all Becoming easily annoyed or irritable: 1 = Several days Feeling afraid as if something awful might happen: 0 = Not at all Total JOSHUA-7 score (0-4 normal; 5-9 mild; 10-14 moderate; 15-21 severe): 5 Source: Developed by Drs. Juaquin Cowart, Lizzeth Tipton, Avelino Calle and colleagues, with an educational ventura from [employer]. JOSHUA-7 Assessment Billing JOSHUA-7 Assessment Tool: JOSHUA-7 Assessment 66925 Review of Systems Const Denies chills and Denies fever(s) ENT Denies epistaxis and Denies nasal discharge Card Denies chest pain Resp Denies chest congestion, Denies cough and Denies hemoptysis GI Denies diarrhea and Denies nausea Skin/Breast Denies rash Neuro Reports no additional complaints Psych Reports no additional complaints Endo Reports no additional complaints Physical exam (Primary Care) Vital Signs: Last Vital Signs Pulse 106 H 08/17/23 09:26 BP 142/68 H 08/17/23 09:26 Pulse Ox 96 08/17/23 09:26 Oxygen Delivery Method Room Air 08/17/23 09:26 BMI result Body Mass Index 20.8 Tobacco/Smoking Status: Tobacco use Status Tobacco use date assessed 08/17/23 08/17/23 09:30 Patient Tobacco Use Status Current everyday Tobacco 08/17/23 09:30 e-Cigarette/Vaping Use Never Used 08/17/23 09:30 Are you ready to quit: Yes Tobacco cessation counseling provided: Yes Items discussed: Nicotine replacement CPT code: 14809 - 4-10 Minutes Thrive Assessment: Date of Thrive Assessment Date Thrive assessed 05/22/22 08/17/23 09:30 Const General: cooperative, comfortable and no acute distress Orientation/consciousness: patient oriented x3 HENMT Head: Yes normocephalic Eyes General: appearance normal, both eyes and all related structures Neck Neck: Yes supple Resp Effort & Inspection: normal respiratory effort, no cough and no stridor Cardio Rhythm: regular rhythm Heart sounds: S1 normal heart sound present and S2 normal heart sound present Skin General skin exam: turgor normal Neuro General: patient oriented x3, tone normal and moves all extremities Extrem Right lower extremity: no edema Left lower extremity: no edema Assessment and Plan Assessment & Plan (1) Anxiety, generalized: Code(s): F41.1 - Generalized anxiety disorder (2) COPD (chronic obstructive pulmonary disease): Code(s): J44.9 - Chronic obstructive pulmonary disease, unspecified Qualifiers: COPD type: emphysema Emphysema type: panlobular Qualified Code(s): J43.1 - Panlobular emphysema (3) Drug dependency: Code(s): F19.20 - Other psychoactive substance dependence, uncomplicated (4) Difficulty sleeping: Code(s): G47.9 - Sleep disorder, unspecified (5) Lipid disorder: Code(s): E78.9 - Disorder of lipoprotein metabolism, unspecified (6) Tobacco abuse: Code(s): Z72.0 - Tobacco use (7) Elevated blood sugar: Code(s): R73.9 - Hyperglycemia, unspecified (8) Staghorn kidney stones: Code(s): N20.0 - Calculus of kidney Plan Patient is 73-year-old female came in today for her regular 3 month follow-up appointment Patient have history of renal calculi, 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 Hoyos as her urologist and is scheduled to have surgery for right renal stone on September 19 Patient continued to smoke half a pack per day, she is trying to quit gradually I did order pulmonary function test last visit but she has not done it Anxiety disorder: She continue take fluoxetine 20 mg along with lorazepam 0.5 mg daily, patient is doing well I have sent 0.5 mg 90 tablets for next 3 months. Patient is taking atorvastatin 40 mg to control her lipids. Impaired fasting sugar: Last fasting sugar was 100 done May of this year Follow-up 3 months Medications: Refilled lorazepam 0.5 mg PO DAILY PRN 90 tabs 0RF anxiety 90 days F41.1 - Generalized anxiety disorder, G47.9 - Sleep disorder, unspecified fluoxetine 20 mg PO QAM 90 caps 0RF atorvastatin 40 mg PO DAILY 90 tabs 0RF 90 days Coding Level of Care Code Est Pt Level 4 (87335) Complex EM visit Add On G2211 Diagnoses Anxiety, generalized F41.1 Panlobular emphysema J43.1 COPD type: emphysema Emphysema type: panlobular Drug dependency F19.20 Difficulty sleeping G47.9 Lipid disorder E78.9 Tobacco abuse Z72.0 Elevated blood sugar R73.9 Staghorn kidney stones N20.0 Additional Codes JOSHUA-7 Assessment Billing - JOSHUA-7 Assessment Tool: JOSHUA-7 Assessment 75149 ([id number]) Vital Signs *Quality* - CPT code: 09080 - 4-10 Minutes ([id number])
== END 2023-08-17 11:25 | disposition home or self-care (01) ==
PROVIDERS: PCP Internal Medicine; Visit Provider Internal Medicine
DX: F41.1 Generalized anxiety disorder (principal); J43.1 Panlobular emphysema; F19.20 Other psychoactive substance dependence, uncomplicated; G47.9 Sleep disorder, unspecified; E78.9 Disorder of lipoprotein metabolism, unspecified; F17.210 Nicotine dependence, cigarettes, uncomplicated; R73.9 Hyperglycemia, unspecified; N20.0 Calculus of kidney
CPT/HCPCS: 99214; 99406; G2211

== ENCOUNTER 2023-11-01 12:29 | Outpatient (AMB) | payer MEDICARE, SELFPAY ==
--- NOTE | 2023-11-01 13:28 | MHC.OFFWIV ---
Intake Vital Signs 11/01/23 13:32 Height 5 ft 8 in Weight 126 lb 6 oz BMI 19.2 BP 120/78 Blood Pressure Location Lt brachial Position Sitting Pulse 112 H Pulse Source Pulse Oximeter Pulse Oximetry (%) 98 Oxygen Delivery Method Room Air Intake Visit Reasons: nausea after kidney surgery over a month ago Intake Note: Pt is here today for nausea after having kidney surgery after over a month ago. Patient Tobacco Use Status: Current everyday Tobacco user Allergies No Known Allergies Allergy (Verified 11/01/23 13:34) Do you need a note to return to daycare/school/sports/work: No HPI HPI Comments History of Present Illness Details Patient presents to the walk-in today for sick visit Complaining of nausea for last 1 month Underwent lithotripsy for kidney stones in September and repeat procedure in October since has felt nauseous Also complaining of increased anxiety or last month due to where he has about future kidney stone procedures. Denies fevers, chills abdominal pain, back pain. Denies vomiting or diarrhea PFSH Medical History Tobacco abuse Dysuria Lipid disorder Difficulty sleeping Anxiety, generalized Kidney stones Surgical History History of lithotripsy Family History Father COPD (chronic obstructive pulmonary disease) Mother COPD (chronic obstructive pulmonary disease) Breast cancer CHF (congestive heart failure) Colon cancer Maternal Grandmother No problems noted. Maternal Aunt Breast cancer Brother No problems noted. Sister Breast cancer Son No problems noted. Daughter No problems noted. Other Mental health disorder Social History Housing: House Alcohol intake: current Alcohol intake frequency: a few times a month Alcohol type: wine Patient Tobacco Use Status: Current everyday Tobacco user Cigarettes Per Day: 10 e-Cigarette/Vaping Use: Never Used service: No Current occupational status: retired Cognitive needs: No Hearing needs: No Vision needs: No Review of Systems Const All systems reviewed & are unremarkable except as noted in HPI and below Physical Exam Vital Signs: Last Vital Signs Pulse 112 H 11/01/23 13:32 BP 120/78 11/01/23 13:32 Pulse Ox 98 11/01/23 13:32 Oxygen Delivery Method Room Air 11/01/23 13:32 BMI result Body Mass Index 19.2 General: awake, alert, oriented. Answers questions appropriately. Fully engaged in examination. Skin: warm, dry, intact HEENT: Normocephalic. Hearing intact. Cardiac: External chest normal in appearance. Respiratory: No cough, audible wheezing or stridor. Abdomen: without gross distension. soft, nontender. no guarding. no CVA tenderness MS: No obvious swelling or deformities. Neurological: Oriented to person, place, time and situation. Thought process intact. No gait abnormalities appreciated. Psychiatric: Appropriate mood and affect. Good judgment and insight. Results AMB Urinalysis, Automated UA Leukoctes 15 Mami/uL Last Edit by Raphael Godoy CMA on 11/01/23 14:17 UA Nitrite Negative Last Edit by Raphael Godoy CMA on 11/01/23 14:17 UA Urobilinogen 0.2 mg/dL Last Edit by Raphael Godoy CMA on 11/01/23 14:17 UA Protein 0 mg/dL Last Edit by Raphael Godoy CMA on 11/01/23 14:17 UA pH 5.5 Last Edit by Raphael Godoy CMA on 11/01/23 14:17 UA Blood 200 Rigo/uL Last Edit by Raphael Godoy CMA on 11/01/23 14:17 UA Specific [place] 1.015 Last Edit by Raphael Godoy CMA on 11/01/23 14:17 UA Ketone Positive Last Edit by Raphael Godoy CMA on 11/01/23 14:17 UA Bilirubin 0 mg/dL Last Edit by Raphael Godoy CMA on 11/01/23 14:17 UA Glucose 0 mg/dL Last Edit by Raphael Godoy CMA on 11/01/23 14:17 Results Reviewed Results Reviewed: UA reviewed: Positive leuks, 3+ blood Assessment & Plan Assessment & Plan (1) Nausea: Code(s): R11.0 - Nausea Plan Zofran ODT 4 mg q.8 hours as needed Will treat with cephalexin 500 mg twice daily for 5 days. Given patient's recent lithotripsy, UA positive for leuks with reported nausea will treat for UTI Advance diet as tolerated Continue with lorazepam as needed for anxiety. Follow up with PCP to discuss further options for treatment. Follow up with Urology as soon as possible All questions and concerns were answered, patient agrees with plan. Return to walk-in for any new or worsening symptoms Orders: Orders AMB Urinalysis Automated Today Z13.9 - Encounter for screening, unspecified Medications: New ondansetron 4 mg PO Q8H PRN 20 tabs 0RF nausea and vomiting ondansetron 4 mg PO Q8H PRN 20 tabs 0RF nausea and vomiting cephalexin 500 mg PO BID 5 days 10 caps 0RF cephalexin 500 mg PO BID 5 days 10 caps 0RF Coding Level of Care Code Est Pt Level 3 (71977) Diagnoses Nausea R11.0
[2023-11-01 13:32] VITALS: BP 120/78; PULSE 112; O2SAT 98; BMI 19.2
== END 2023-11-01 14:50 | disposition home or self-care (01) ==
PROVIDERS: PCP Internal Medicine; Visit Provider Registered Nurse Emergency
DX: Z13.9 Encounter for screening, unspecified (principal); R11.0 Nausea
CPT/HCPCS: 81003; 99213

== ENCOUNTER 2023-11-16 09:18 | Outpatient (AMB) | payer MEDICARE, SELFPAY ==
[2023-11-16 09:19] VITALS: BP 130/76; PULSE 112; O2SAT 97; BMI 19.0
--- NOTE | 2023-11-16 09:19 | A.OFFPC_ITS ---
Vital Signs 11/16/23 09:19 Height 5 ft 8 in Weight 125 lb 2 oz BMI 19.0 BP 130/76 Blood Pressure Location Rt brachial Position Sitting Pulse 112 H Pulse Source Pulse Oximeter Pulse Oximetry (%) 97 Oxygen Delivery Method Room Air Intake Visit Reasons: 6 month follow up Allergies No Known Allergies Allergy (Verified 11/16/23 09:20) Medication List - Last Reconciled 11/16/23 by Abigail Riggs MD atorvastatin 40 mg PO DAILY 90 days fluoxetine 20 mg PO QAM lorazepam 0.5 mg PO DAILY PRN 90 days ondansetron 4 mg PO Q8H PRN Tobacco use date assessed: 11/16/23 Fall risk assessment: No Falls in past year Last assessed Fall Risk: 11/16/23 Dental Screening Dental Screen Date: 11/16/23 Did you have a dental visit in the last 12 months?: No Did you have a dental problem in the last 6 months where you did not have access to dental care?: No Was dental information given to patient?: No HPI 6 month follow up HPI Details Patient is 73-year-old female came in today for her regular 3 month follow-up appointment Patient is going through procedures for kidney stones Recently she had stent removed from right ureter She continued to have staghorn stone on left side she has ultrasound appointment coming up She is seeing Dr. Hoyos as her urologist Patient continued to smoke half a pack per day, she is trying to quit gradually I did order pulmonary function test last visit but she has not done it Anxiety disorder: She continue take fluoxetine 20 mg along with lorazepam 0.5 mg daily, patient is doing well I have sent 0.5 mg 90 tablets for next 3 months. Patient is taking atorvastatin 40 mg to control her lipids. Labs needed in 3 months order placed to be done fasting Impaired fasting sugar: Last fasting sugar was 100 done May of this year Follow-up 3 months [facility] Medical History Tobacco abuse Dysuria Lipid disorder Difficulty sleeping Anxiety, generalized Kidney stones Surgical History History of lithotripsy Family History Father COPD (chronic obstructive pulmonary disease) Mother COPD (chronic obstructive pulmonary disease) Breast cancer CHF (congestive heart failure) Colon cancer Maternal Grandmother No problems noted. Maternal Aunt Breast cancer Brother No problems noted. Sister Breast cancer Son No problems noted. Daughter No problems noted. Other Mental health disorder Social History Housing: House Alcohol intake: current Alcohol intake frequency: a few times a month Alcohol type: wine Patient Tobacco Use Status: Current everyday Tobacco user Cigarettes Per Day: 10 e-Cigarette/Vaping Use: Never Used service: No Current occupational status: retired Cognitive needs: No Hearing needs: No Vision needs: No Questionnaire PHQ-9 Over the last 2 weeks, how often have you been bothered by any of the following problems? 1. Little interest or pleasure in doing things: not at all 2. Feeling down, depressed, or hopeless: not at all 3. Trouble falling or staying asleep, or sleeping too much: not at all 4. Feeling tired or having little energy: several days 5. Poor appetite or overeating: several days 6. Feeling bad about yourself - or that you are a failure or have let yourself or your family down: not at all 7. Trouble concentrating on things, such as reading the newspaper or watching television: not at all 8. Moving or speaking so slowly that other people could have noticed. Or the opposite - being so fidgety or restless that you have been moving around a lot more than usual: not at all 9. Thoughts that you would be better off or of hurting yourself in some way: not at all Total score: 2 Depression Screening Interpretation: Negative Depression Screening Done: Yes 51060 - PHQ-9 Billing: Yes Source: Developed by Drs. Juaquin Cowart, Lizzeth Tipton, Avelino Calle and colleagues, with an educational ventura from [employer]. Thrive Questionnaire Date Thrive assessed: 11/16/23 I am a: Patient What is your living situation today?: I have a steady place to live Within the past 12 months, did the food you bought not last and you didn't have the money to get more?: Never true Within the past 12 months, did you worry whether your food would run out before you got money to buy more?: Never true Do you have trouble paying for medicines?: No Do you have trouble getting transportation to medical appointments?: No Do you have trouble paying your heating and electricity bill?: No Do you have trouble taking care of your child, family member or friend?: No Do you have trouble with day-to-day activities such as bathing, preparing meals, shopping, managing finances, etc.?: No Are you currently unemployed and looking for a job?: No Are you interested in more education?: No Please select the resources that you would like help with: Housing/Half-Way Currently or been in a relationship where the following occur: No concerns reported THRIVE Score: 0 AUDIT C Alcohol Use Questionnaire (AUDIT-C) 1. How often do you have a drink containing alcohol?: Never 3. How often do you have six or more drinks on one occasion?: Never Total Score: 0 Score Reviewed/Action Taken: Yes JOSHUA-7 AMB Questionnaire JOSHUA-7 Date JOSHUA - 7 assessed: 11/16/23 Feeling nervous, anxious, or on edge: 1 = Several days Not being able to stop or control worryin = Several days Worrying too much about different things: 1 = Several days Trouble relaxin = Several days Being so restless that it is hard to sit still: 1 = Several days Becoming easily annoyed or irritable: 0 = Not at all Feeling afraid as if something awful might happen: 0 = Not at all Total JOSHUA-7 score (0-4 normal; 5-9 mild; 10-14 moderate; 15-21 severe): 5 Source: Developed by Drs. Juaquin Cowart, Lizzeth Tipton, Avelino Calle and colleagues, with an educational ventura from [employer]. JOSHUA-7 Assessment Billing JOSHUA-7 Assessment Tool: JOSHUA-7 Assessment 73292 Review of Systems Const Denies chills and Denies fever(s) ENT Denies epistaxis and Denies nasal discharge Card Denies chest pain Resp Denies chest congestion, Denies cough and Denies hemoptysis GI Denies diarrhea and Denies nausea Skin/Breast Denies rash Neuro Reports no additional complaints Psych Reports no additional complaints Endo Reports no additional complaints Physical exam (Primary Care) Vital Signs: Last Vital Signs Pulse 112 H 11/16/23 09:19 BP 130/76 11/16/23 09:19 Pulse Ox 97 11/16/23 09:19 Oxygen Delivery Method Room Air 11/16/23 09:19 BMI result Body Mass Index 19.0 Tobacco/Smoking Status: Tobacco use Status Tobacco use date assessed 11/16/23 11/16/23 09:21 Patient Tobacco Use Status Current everyday Tobacco 11/16/23 09:21 e-Cigarette/Vaping Use Never Used 11/16/23 09:21 PHQ-9: PHQ-9 Score PHQ-9: Total score 2 11/16/23 09:39 Depression Screening Interpretation: Negative Thrive Assessment: Date of Thrive Assessment Date Thrive assessed 11/16/23 11/16/23 09:24 Currently or been in a relationship where the following occur: No concerns reported Const General: cooperative, comfortable and no acute distress Orientation/consciousness: patient oriented x3 HENMT Head: Yes normocephalic Eyes General: appearance normal, both eyes and all related structures Neck Neck: Yes supple Resp Effort & Inspection: normal respiratory effort, no cough and no stridor Cardio Rhythm: regular rhythm Heart sounds: S1 normal heart sound present and S2 normal heart sound present Skin General skin exam: turgor normal Neuro General: patient oriented x3, tone normal and moves all extremities Extrem Right lower extremity: no edema Left lower extremity: no edema Assessment and Plan Assessment & Plan (1) Anxiety, generalized: Code(s): F41.1 - Generalized anxiety disorder (2) COPD (chronic obstructive pulmonary disease): Code(s): J44.9 - Chronic obstructive pulmonary disease, unspecified Qualifiers: COPD type: emphysema Emphysema type: panlobular Qualified Code(s): J43.1 - Panlobular emphysema (3) Drug dependency: Code(s): F19.20 - Other psychoactive substance dependence, uncomplicated (4) Difficulty sleeping: Code(s): G47.9 - Sleep disorder, unspecified (5) Lipid disorder: Code(s): E78.9 - Disorder of lipoprotein metabolism, unspecified (6) Tobacco abuse: Code(s): Z72.0 - Tobacco use (7) Elevated blood sugar: Code(s): R73.9 - Hyperglycemia, unspecified (8) Staghorn kidney stones: Code(s): N20.0 - Calculus of kidney Plan Patient is 73-year-old female came in today for her regular 3 month follow-up appointment Patient is going through procedures for kidney stones Recently she had stent removed from right ureter She continued to have staghorn stone on left side she has ultrasound appointment coming up She is seeing Dr. Hoyos as her urologist Patient continued to smoke half a pack per day, she is trying to quit gradually I did order pulmonary function test last visit but she has not done it Anxiety disorder: She continue take fluoxetine 20 mg along with lorazepam 0.5 mg daily, patient is doing well I have sent 0.5 mg 90 tablets for next 3 months. Patient is taking atorvastatin 40 mg to control her lipids. Labs needed in 3 months order placed to be done fasting Impaired fasting sugar: Last fasting sugar was 100 done May of this year Follow-up 3 months Orders: Orders Complete Blood Count Auto Diff Today E78.9 - Disorder of lipoprotein metabolism, unspecified, F19.20 - Other psychoactive substance dependence, uncomplicated, F41.1 - Generalized anxiety disorder, G47.9 - Sleep disorder, unspecified, J43.1 - Panlobular emphysema, R73.9 - Hyperglycemia, unspecified Comprehensive [place]. Panel Fast Today E78.9 - Disorder of lipoprotein metabolism, unspecified, F19.20 - Other psychoactive substance dependence, uncomplicated, F41.1 - Generalized anxiety disorder, G47.9 - Sleep disorder, unspecified, J43.1 - Panlobular emphysema, R73.9 - Hyperglycemia, unspecified Lipid Panel Today E78.9 - Disorder of lipoprotein metabolism, unspecified, F19.20 - Other psychoactive substance dependence, uncomplicated, F41.1 - Generalized anxiety disorder, G47.9 - Sleep disorder, unspecified, J43.1 - Panlobular emphysema, R73.9 - Hyperglycemia, unspecified Medications: Refilled lorazepam 0.5 mg PO DAILY PRN 90 tabs 0RF anxiety 90 days F41.1 - Generalized anxiety disorder, G47.9 - Sleep disorder, unspecified fluoxetine 20 mg PO QAM 90 caps 0RF atorvastatin 40 mg PO DAILY 90 tabs 0RF 90 days Coding Level of Care Code Est Pt Level 4 (77307) Complex EM visit Add On G2211 Diagnoses Anxiety, generalized F41.1 Panlobular emphysema J43.1 COPD type: emphysema Emphysema type: panlobular Drug dependency F19.20 Difficulty sleeping G47.9 Lipid disorder E78.9 Tobacco abuse Z72.0 Elevated blood sugar R73.9 Staghorn kidney stones N20.0 Additional Codes JOSHUA-7 Assessment Billing - JOSHUA-7 Assessment Tool: JOSHUA-7 Assessment [id number] ([id number])
== END 2023-11-16 09:47 | disposition home or self-care (01) ==
PROVIDERS: PCP Internal Medicine; Visit Provider Internal Medicine
DX: F41.1 Generalized anxiety disorder (principal); J43.1 Panlobular emphysema; F19.20 Other psychoactive substance dependence, uncomplicated; G47.9 Sleep disorder, unspecified; E78.9 Disorder of lipoprotein metabolism, unspecified; Z72.0 Tobacco use; R73.9 Hyperglycemia, unspecified; N20.0 Calculus of kidney
CPT/HCPCS: 96127; 99214; G2211

== ENCOUNTER 2024-02-09 07:16 | Outpatient (REF) | payer MEDICARE, SELFPAY ==
[2024-02-09 10:07] LABS: MANUAL DIFF FLAG NO
[2024-02-09 10:19] LABS: Basophils Percent Auto 0.3 % (0-2); Eosinophils Absolute Auto 0.2 X10*3/uL (0.0-0.4); Eosinophils Percent Auto 1.9 % (0-4); Hematocrit 35.2 % (37.0-47.0); Hemoglobin 11.4 g/dl (12.0-16.0); Imm Gran Abs Auto 0.03 X10*3/uL (0.00-0.03); Imm Gran Pct Auto 0.3 % (0.0-0.4); Lymphocytes Absolute Auto 1.3 X10*3/uL (1.2-4.9); Lymphocytes Percent Auto 14.3 % (20-40); Mean Corpuscular HGB Conc 32.4 g/dl (31.0-35.0); Mean Corpuscular Hemoglobin 30.8 pg (27.0-33.0); Mean Corpuscular Volume 95.1 fL (80.0-98.0); Mean Platelet Volume 10.4 fL (9.4-12.3); Monocytes Absolute Auto 0.8 X10*3/uL (0.1-1.2); Monocytes Percent Auto 8.6 % (2-11); Neutrophils Absolute Auto 6.5 x10*3/uL (2.0-8.3); Neutrophils Percent Auto 74.6 % (45-73); Platelet Count 239 X10*3/uL (160-400); Red Cell Distribution Width 14.8 % (11.0-16.0); White Blood Count 8.8 X10*3/uL (4.8-10.8)
[2024-02-09 10:27] LABS: Alanine Aminotransferase 49 U/L (0-31); Albumin Level 3.7 g/dL (3.5-5.0); Alkaline Phosphatase 62 U/L (39-117); Anion Gap 11 (12-20); Aspartate Amino Transferase 58 U/L (5-31); Bilirubin Total 0.3 mg/dL (0.0-1.0); Blood Urea Nitrogen 23 mg/dL (9-16); Carbon Dioxide 25 mmol/L (22-29); Chloride 105 mmol/L (96-108); Cholesterol 185 mg/dL (<200); Estimated Glomerular Filt Rate 48; Glucose Fasting 104 mg/dL (60-99); HDL Cholesterol 50 mg/dL (>40); LDL Cholesterol Calculated 108 mg/dL (<100); Sodium 137 mmol/L (135-145); Total Protein 6.7 g/dL (6.5-8.0); Triglycerides 136 mg/dL (<150)
== END 2024-02-09 07:17 | disposition home or self-care (01) ==
LOC: HO.HMGCLDS 07:16
PROVIDERS: PCP Internal Medicine; Visit Provider Internal Medicine
DX: J43.1 Panlobular emphysema (principal); R73.9 Hyperglycemia, unspecified; F19.20 Other psychoactive substance dependence, uncomplicated; E78.9 Disorder of lipoprotein metabolism, unspecified; G47.9 Sleep disorder, unspecified; F41.1 Generalized anxiety disorder
CPT/HCPCS: 36415; 80053; 80061; 85025

== ENCOUNTER 2024-02-15 09:27 | Outpatient (AMB) | payer MEDICARE, SELFPAY ==
--- NOTE | 2024-02-15 09:36 | MHC.PC.OV ---
Vital Signs 02/15/24 09:37 Height 5 ft 8 in Weight 124 lb 8 oz BMI 18.9 BP 132/78 Blood Pressure Location Lt brachial Position Sitting Pulse 90 Pulse Source Pulse Oximeter Pulse Oximetry (%) 96 Oxygen Delivery Method Room Air Intake Visit Reasons: 9 month follow up Allergies No Known Allergies Allergy (Verified 02/15/24 09:41) Medication List - Last Reconciled 02/15/24 by Abigail Riggs MD atorvastatin 40 mg PO DAILY 90 days fluoxetine 20 mg PO QAM lorazepam 0.5 mg PO DAILY PRN 90 days Tobacco use date assessed: 02/15/24 Fall risk assessment: No Falls in past year Last assessed Fall Risk: 02/15/24 Dental Screening Dental Screen Date: 02/15/24 Did you have a dental visit in the last 12 months?: No Did you have a dental problem in the last 6 months where you did not have access to dental care?: No Was dental information given to patient?: No HPI HPI Comments History of Present Illness Details Stents bilateral then removed again now need [address] Hoyos Patient is 74-year-old female came in today for her regular 3 month follow-up appointment Patient has bilateral kidney stones she is being treated by Dr. Hoyos She had bilateral stents placed which were then removed and now she tells me that she need 1 stent replaced again Patient continued to smoke half a pack per day, she is trying to quit gradually Pulmonary function test was ordered in the past but patient never went Anxiety disorder: She continue take fluoxetine 20 mg along with lorazepam 0.5 mg daily, patient is doing well I have sent 0.5 mg 90 tablets for next 3 months. Patient is taking atorvastatin 40 mg to control her lipids. Patient have impaired fasting sugar, we are monitoring it Last set of lab was reviewed, her hemoglobin came back at 11.4 with fasting sugar of 104 We will repeat labs again in 4 weeks, patient notified Follow-up 3 months [facility] Medical History Tobacco abuse Dysuria Lipid disorder Difficulty sleeping Anxiety, generalized Kidney stones Surgical History History of lithotripsy Family History Father COPD (chronic obstructive pulmonary disease) Mother COPD (chronic obstructive pulmonary disease) Breast cancer CHF (congestive heart failure) Colon cancer Maternal Grandmother No problems noted. Maternal Aunt Breast cancer Brother No problems noted. Sister Breast cancer Son No problems noted. Daughter No problems noted. Other Mental health disorder Social History Housing: House Alcohol intake: current Alcohol intake frequency: a few times a month Alcohol type: wine Patient Tobacco Use Status: Current everyday Tobacco user Cigarettes Per Day: 10 e-Cigarette/Vaping Use: Never Used service: No Current occupational status: retired Cognitive needs: No Hearing needs: No Vision needs: No Questionnaire Thrive Questionnaire Date Thrive assessed: 02/15/24 I am a: Patient What is your living situation today?: I have a steady place to live Within the past 12 months, did the food you bought not last and you didn't have the money to get more?: Never true Within the past 12 months, did you worry whether your food would run out before you got money to buy more?: Never true Do you have trouble paying for medicines?: No Do you have trouble getting transportation to medical appointments?: No Do you have trouble paying your heating and electricity bill?: No Do you have trouble taking care of your child, family member or friend?: No Do you have trouble with day-to-day activities such as bathing, preparing meals, shopping, managing finances, etc.?: No Are you currently unemployed and looking for a job?: No Are you interested in more education?: No Please select the resources that you would like help with: None Currently or been in a relationship where the following occur: No concerns reported THRIVE Score: 0 AUDIT C Alcohol Use Questionnaire (AUDIT-C) 1. How often do you have a drink containing alcohol?: Never 3. How often do you have six or more drinks on one occasion?: Never Total Score: 0 Score Reviewed/Action Taken: Yes JOSHUA-7 AMB Questionnaire JOSHUA-7 Date JOSHUA - 7 assessed: 11/16/23 Source: Developed by Drs. Juaquin Cowart, Lizzeth Tipton, Avelino Calle and colleagues, with an educational ventura from [employer]. Review of Systems Const Denies chills and Denies fever(s) ENT Denies epistaxis and Denies nasal discharge Card Denies chest pain Resp Denies chest congestion, Denies cough and Denies hemoptysis GI Denies diarrhea and Denies nausea Skin/Breast Denies rash Neuro Reports no additional complaints Psych Reports no additional complaints Endo Reports no additional complaints Physical exam (Primary Care) Vital Signs: Last Vital Signs Pulse 90 02/15/24 09:37 BP 132/78 02/15/24 09:37 Pulse Ox 96 02/15/24 09:37 Oxygen Delivery Method Room Air 02/15/24 09:37 BMI result Body Mass Index 18.9 Tobacco/Smoking Status: Tobacco use Status Tobacco use date assessed 02/15/24 02/15/24 09:41 Patient Tobacco Use Status Current everyday Tobacco 02/15/24 09:38 e-Cigarette/Vaping Use Never Used 02/15/24 09:38 Thrive Assessment: Date of Thrive Assessment Date Thrive assessed 02/15/24 02/15/24 09:41 Currently or been in a relationship where the following occur: No concerns reported Const General: cooperative, comfortable and no acute distress Orientation/consciousness: patient oriented x3 HENMT Head: Yes normocephalic Eyes General: appearance normal, both eyes and all related structures Neck Neck: Yes supple Resp Effort & Inspection: normal respiratory effort, no cough and no stridor Cardio Rhythm: regular rhythm Heart sounds: S1 normal heart sound present and S2 normal heart sound present Skin General skin exam: turgor normal Neuro General: patient oriented x3, tone normal and moves all extremities Extrem Right lower extremity: no edema Left lower extremity: no edema Coding Level of Care Code Est Pt Level 4 (41907) Complex EM visit Add On G2211 Diagnoses Microcytic anemia D50.9 LFT elevation R79.89 Panlobular emphysema J43.1 COPD type: emphysema Emphysema type: panlobular Anxiety, generalized F41.1 Difficulty sleeping G47.9 Lipid disorder E78.9 Tobacco abuse Z72.0 Drug dependency F19.20 Staghorn kidney stones N20.0 Assessment & Plan Assessment & Plan (1) Microcytic anemia: Code(s): D50.9 - Iron deficiency anemia, unspecified Category: Medical (2) LFT elevation: Code(s): R79.89 - Other specified abnormal findings of blood chemistry Category: Medical (3) COPD (chronic obstructive pulmonary disease): Code(s): J44.9 - Chronic obstructive pulmonary disease, unspecified Category: Medical Qualifiers: COPD type: emphysema Emphysema type: panlobular Qualified Code(s): J43.1 - Panlobular emphysema (4) Anxiety, generalized: Code(s): F41.1 - Generalized anxiety disorder Category: Medical (5) Difficulty sleeping: Code(s): G47.9 - Sleep disorder, unspecified Category: Medical (6) Lipid disorder: Code(s): E78.9 - Disorder of lipoprotein metabolism, unspecified Category: Medical (7) Tobacco abuse: Code(s): Z72.0 - Tobacco use Category: Medical (8) Drug dependency: Code(s): F19.20 - Other psychoactive substance dependence, uncomplicated Category: Medical (9) Staghorn kidney stones: Code(s): N20.0 - Calculus of kidney Category: Medical Plan Stents bilateral then removed again now need [address] Hoyos Patient is 74-year-old female came in today for her regular 3 month follow-up appointment Patient has bilateral kidney stones she is being treated by Dr. Hoyos She had bilateral stents placed which were then removed and now she tells me that she need 1 stent replaced again Patient continued to smoke half a pack per day, she is trying to quit gradually Pulmonary function test was ordered in the past but patient never went Anxiety disorder: She continue take fluoxetine 20 mg along with lorazepam 0.5 mg daily, patient is doing well I have sent 0.5 mg 90 tablets for next 3 months. Patient is taking atorvastatin 40 mg to control her lipids. Patient have impaired fasting sugar, we are monitoring it Last set of lab was reviewed, her hemoglobin came back at 11.4 with fasting sugar of 104 We will repeat labs again in 4 weeks, patient notified Follow-up 3 months Orders: Orders Complete Blood Count Auto Diff 4 Weeks D50.9 - Iron deficiency anemia, unspecified, R79.89 - Other specified abnormal findings of blood chemistry IRON PROFILE 4 Weeks D50.9 - Iron deficiency anemia, unspecified, R79.89 - Other specified abnormal findings of blood chemistry Complete Blood Count Auto Diff 3 Months D50.9 - Iron deficiency anemia, unspecified, E78.9 - Disorder of lipoprotein metabolism, unspecified, F19.20 - Other psychoactive substance dependence, uncomplicated, F41.1 - Generalized anxiety disorder, G47.9 - Sleep disorder, unspecified, J43.1 - Panlobular emphysema, N20.0 - Calculus of kidney, R79.89 - Other specified abnormal findings of blood chemistry, Z72.0 - Tobacco use Lipid Panel 3 Months D50.9 - Iron deficiency anemia, unspecified, E78.9 - Disorder of lipoprotein metabolism, unspecified, F19.20 - Other psychoactive substance dependence, uncomplicated, F41.1 - Generalized anxiety disorder, G47.9 - Sleep disorder, unspecified, J43.1 - Panlobular emphysema, N20.0 - Calculus of kidney, R79.89 - Other specified abnormal findings of blood chemistry, Z72.0 - Tobacco use Vitamin B12 4 Weeks D50.9 - Iron deficiency anemia, unspecified, R79.89 - Other specified abnormal findings of blood chemistry Comprehensive Met. Panel 4 Weeks D50.9 - Iron deficiency anemia, unspecified, R79.89 - Other specified abnormal findings of blood chemistry Comprehensive [place]. Panel Fast 3 Months D50.9 - Iron deficiency anemia, unspecified, E78.9 - Disorder of lipoprotein metabolism, unspecified, F19.20 - Other psychoactive substance dependence, uncomplicated, F41.1 - Generalized anxiety disorder, G47.9 - Sleep disorder, unspecified, J43.1 - Panlobular emphysema, N20.0 - Calculus of kidney, R79.89 - Other specified abnormal findings of blood chemistry, Z72.0 - Tobacco use Medications: Refilled fluoxetine 20 mg PO QAM 90 caps 0RF lorazepam 0.5 mg PO DAILY 90 days PRN 90 tabs 0RF anxiety F41.1 - Generalized anxiety disorder, G47.9 - Sleep disorder, unspecified
[2024-02-15 09:37] VITALS: BP 132/78; PULSE 90; O2SAT 96; BMI 18.9
== END 2024-02-15 10:00 | disposition home or self-care (01) ==
PROVIDERS: PCP Internal Medicine; Visit Provider Internal Medicine
DX: J43.1 Panlobular emphysema (principal); F19.20 Other psychoactive substance dependence, uncomplicated; D50.9 Iron deficiency anemia, unspecified; N20.0 Calculus of kidney; F41.1 Generalized anxiety disorder; G47.9 Sleep disorder, unspecified; E78.9 Disorder of lipoprotein metabolism, unspecified; Z72.0 Tobacco use

== ENCOUNTER → 2024-02-15 09:27 | Outpatient (BNVA) | payer MEDICARE, SELFPAY | PROVIDERS: PCP Internal Medicine; Visit Provider Internal Medicine | DX: D50.9 Iron deficiency anemia, unspecified (principal); R79.89 Other specified abnormal findings of blood chemistry; J43.1 Panlobular emphysema; F41.1 Generalized anxiety disorder; G47.9 Sleep disorder, unspecified; E78.9 Disorder of lipoprotein metabolism, unspecified; N20.0 Calculus of kidney; F19.20 Other psychoactive substance dependence, uncomplicated; Z72.0 Tobacco use | CPT/HCPCS: 99212 ==

== ENCOUNTER 2024-03-24 11:02 | Outpatient (REF) | payer MEDICARE, SELFPAY ==
[2024-03-24 13:23] LABS: MANUAL DIFF FLAG NO
[2024-03-24 13:26] LABS: Basophils Percent Auto 0.5 % (0-2); Eosinophils Absolute Auto 0.1 X10*3/uL (0.0-0.4); Eosinophils Percent Auto 1.1 % (0-4); Hematocrit 35.5 % (37.0-47.0); Hemoglobin 11.4 g/dl (12.0-16.0); Imm Gran Abs Auto 0.02 X10*3/uL (0.00-0.03); Imm Gran Pct Auto 0.4 % (0.0-0.4); Lymphocytes Absolute Auto 1.4 X10*3/uL (1.2-4.9); Mean Corpuscular HGB Conc 32.1 g/dl (31.0-35.0); Mean Corpuscular Hemoglobin 30.8 pg (27.0-33.0); Mean Corpuscular Volume 95.9 fL (80.0-98.0); Mean Platelet Volume 10.3 fL (9.4-12.3); Monocytes Absolute Auto 0.5 X10*3/uL (0.1-1.2); Monocytes Percent Auto 8.2 % (2-11); Neutrophils Absolute Auto 3.5 x10*3/uL (2.0-8.3); Neutrophils Percent Auto 63.8 % (45-73); Platelet Count 248 X10*3/uL (160-400); Red Cell Distribution Width 14.3 % (11.0-16.0); White Blood Count 5.5 X10*3/uL (4.8-10.8)
[2024-03-24 13:52] LABS: Alanine Aminotransferase 17 U/L (0-31); Albumin Level 3.9 g/dL (3.5-5.0); Alkaline Phosphatase 51 U/L (39-117); Anion Gap 8 (12-20); Aspartate Amino Transferase 24 U/L (5-31); Bilirubin Total 0.3 mg/dL (0.0-1.0); Blood Urea Nitrogen 18 mg/dL (9-16); Calcium 8.6 mg/dL (8.4-10.2); Carbon Dioxide 27 mmol/L (22-29); Chloride 108 mmol/L (96-108); Estimated Glomerular Filt Rate > 60; Glucose Random 75 mg/dL (60-115); Iron 88 mcg/dL (30-160); Percent Iron Saturation 32 % (15-50); Potassium 4.1 mmol/L (3.3-5.1); Sodium 139 mmol/L (135-145); Total Iron Binding Capacity 271 mcg/dL (228-428); Total Protein 6.8 g/dL (6.5-8.0); Unsaturated Iron Binding 183 ug/dL
[2024-03-24 14:08] LABS: Vitamin B12 240 pg/mL (200-900)
== END 2024-03-24 11:03 | disposition home or self-care (01) ==
LOC: HO.HMGCLDS 11:02
PROVIDERS: PCP Internal Medicine; Visit Provider Internal Medicine
DX: D50.9 Iron deficiency anemia, unspecified (principal); R79.89 Other specified abnormal findings of blood chemistry
CPT/HCPCS: 36415; 80053; 82607; 83540; 85025

== ENCOUNTER 2024-05-23 10:06 | Outpatient (AMB) | payer MEDICARE, SELFPAY ==
--- NOTE | 2024-05-23 10:11 | A.OFFPC_ITS ---
Vital Signs 05/23/24 10:12 Height 5 ft 8 in Weight 132 lb 2 oz BMI 20.1 BP 138/78 Blood Pressure Location Lt brachial Position Sitting Pulse 112 H Pulse Source Pulse Oximeter Pulse Oximetry (%) 96 Oxygen Delivery Method Room Air Intake Visit Reasons: 3 months f/up Allergies No Known Allergies Allergy (Verified 05/23/24 10:21) Medication List - Last Reconciled 05/23/24 by Abigail Riggs MD atorvastatin 40 mg PO DAILY 90 days fluoxetine 20 mg PO QAM lorazepam 0.5 mg PO DAILY PRN 90 days Tobacco use date assessed: 05/23/24 Fall risk assessment: No Falls in past year Last assessed Fall Risk: 05/23/24 Dental Screening Dental Screen Date: 05/23/24 Did you have a dental visit in the last 12 months?: Yes Did you have a dental problem in the last 6 months where you did not have access to dental care?: No Was dental information given to patient?: Patient has dentist HPI 3 months f/up HPI Details - The patient is a 74-year-old female pr esenting for a three-month follow-up appointment. - Family dynamics have caused significan t psychological stress owing to political disagreements, leading to avoidance of gatherings and subsequent stress symptoms. - Renal stones led to stent placement, p ending further evaluation and possible removal. - Hemoglobin level was noted to be sligh tly low previously, related to ongoing renal issues. - COVID-19 was contracted recently with mild symptoms, primarily cough and altered smell perception. - The patient remains an active smoker a nd is advised on associated health risks. - Vitamin D insufficiency was identified ; supplementation has now been prescribed. - Current medications were reviewed, con firming the ongoing need and renewal of fluoxetine, lorazepam, and atorvastatin. - Expectation for consultation with Dr. Hoyos, urologist, for further renal evaluation was discussed. Problem List - Family tension related to family polit ics - Renal stones with stent placement - History of COVID-19 infection - Decreased hemoglobin levels (11.4) - Smoking - Stress-related symptoms (stomach ache) - ongoing anxiety and depression - Vitamin D Insufficiency Patient Instructions - Begin taking Vitamin D supplements as prescribed. - Cancel the May 26 physical exam appointment and reschedule for three months later. - Contact your urologist, Dr. Hoyos, for further information regarding stent management and upcoming renal scan. - Continue prescribed medications: fluox etine 20 mg, lorazepam 0.5 mg, and atorvastatin 40 mg. - Monitor stress levels, avoid known str ess triggers where possible. - Refrain from smoking, consider cessati on programs for improved health. - Schedule the next follow-up in three [facility] as discussed. Review of Systems. - General: No fever no chills - Neurological: No headaches no dizziness - Ear nose throat: No sore throat no hearing difficulty no ear pain - Cardiovascular: No syncope, no chest pain, no palpitations - Gastrointestinal: No nausea vomiting or diarrhea - Endocrine: No polyuria polydipsia no heat intolerance - Genitourinary: No dysuria , no blood in urine Physical Exam General: No acute distress HEENT: No acute findings Neck: Supple Respiratory system: Able to talk in full sentences, no audible wheeze cardiovascular: S1-S2 regular in rate and rhythm Gastrointestinal: Stomach ache reported Extremities: No new findings [employer]: Alert awake oriented x3 motor sensory intact Skin: Normal turgor [facility] Medical History Tobacco abuse Dysuria Lipid disorder Difficulty sleeping Anxiety, generalized Kidney stones Surgical History History of lithotripsy Family History Father COPD (chronic obstructive pulmonary disease) Mother COPD (chronic obstructive pulmonary disease) Breast cancer CHF (congestive heart failure) Colon cancer Maternal Grandmother No problems noted. Maternal Aunt Breast cancer Brother No problems noted. Sister Breast cancer Son No problems noted. Daughter No problems noted. Other Mental health disorder Social History Housing: House Alcohol intake: current Alcohol intake frequency: a few times a month Alcohol type: wine Patient Tobacco Use Status: Current everyday Tobacco user Cigarettes Per Day: 10 e-Cigarette/Vaping Use: Never Used service: No Current occupational status: retired Cognitive needs: No Hearing needs: No Vision needs: No Questionnaire PHQ-9 Over the last 2 weeks, how often have you been bothered by any of the following problems? 1. Little interest or pleasure in doing things: not at all 2. Feeling down, depressed, or hopeless: several days 3. Trouble falling or staying asleep, or sleeping too much: several days 4. Feeling tired or having little energy: several days 5. Poor appetite or overeating: several days 6. Feeling bad about yourself - or that you are a failure or have let yourself or your family down: not at all 7. Trouble concentrating on things, such as reading the newspaper or watching television: not at all 8. Moving or speaking so slowly that other people could have noticed. Or the opposite - being so fidgety or restless that you have been moving around a lot more than usual: not at all 9. Thoughts that you would be better off or of hurting yourself in some way: not at all Total score: 4 Depression Screening Interpretation: Negative Depression Screening Done: Yes 52365 - PHQ-9 Billing: Yes Source: Developed by Drs. Juaquin Cowart, Lizzeth Tipton, Avelino Calle and colleagues, with an educational ventura from [employer]. Thrive Questionnaire Date Thrive assessed: 05/23/24 I am a: Patient What is your living situation today?: I have a steady place to live Within the past 12 months, did the food you bought not last and you didn't have the money to get more?: Never true Within the past 12 months, did you worry whether your food would run out before you got money to buy more?: Never true Do you have trouble paying for medicines?: No Do you have trouble getting transportation to medical appointments?: No Do you have trouble paying your heating and electricity bill?: No Do you have trouble taking care of your child, family member or friend?: No Do you have trouble with day-to-day activities such as bathing, preparing meals, shopping, managing finances, etc.?: No Are you currently unemployed and looking for a job?: No Are you interested in more education?: No Please select the resources that you would like help with: None Currently or been in a relationship where the following occur: No concerns reported THRIVE Score: 0 AUDIT C Alcohol Use Questionnaire (AUDIT-C) 1. How often do you have a drink containing alcohol?: Monthly or less 2. How many drinks containing alcohol do you have on a typical day when you are drinking?: 1 or 2 3. How often do you have six or more drinks on one occasion?: Never Total Score: 1 Score Reviewed/Action Taken: Yes JOSHUA-7 AMB Questionnaire JOSHUA-7 Date JOSHUA - 7 assessed: 05/23/24 Feeling nervous, anxious, or on edge: 1 = Several days Not being able to stop or control worryin = Not at all Worrying too much about different things: 1 = Several days Trouble relaxin = Not at all Being so restless that it is hard to sit still: 0 = Not at all Becoming easily annoyed or irritable: 1 = Several days Feeling afraid as if something awful might happen: 0 = Not at all Total JOSHUA-7 score (0-4 normal; 5-9 mild; 10-14 moderate; 15-21 severe): 3 Source: Developed by Drs. Juaquin Cowart, Lizzeth Tipton, Avelino Calle and colleagues, with an educational ventura from [employer]. JOSHUA-7 Assessment Billing JOSHUA-7 Assessment Tool: JOSHUA-7 Assessment [id number] Physical exam (Primary Care) Vital Signs: Last Vital Signs Pulse 112 H 05/23/24 10:12 BP 138/78 05/23/24 10:12 Pulse Ox 96 05/23/24 10:12 Oxygen Delivery Method Room Air 05/23/24 10:12 BMI result Body Mass Index 20.1 Tobacco/Smoking Status: Tobacco use Status Tobacco use date assessed 05/23/24 05/23/24 10:21 Patient Tobacco Use Status Current everyday Tobacco 05/23/24 10:15 e-Cigarette/Vaping Use Never Used 05/23/24 10:15 PHQ-9: PHQ-9 Score PHQ-9: Total score 4 05/23/24 10:26 Depression Screening Interpretation: Negative Thrive Assessment: Date of Thrive Assessment Date Thrive assessed 05/23/24 05/23/24 10:21 Currently or been in a relationship where the following occur: No concerns reported Coding Level of Care Code Est Pt Level 4 (16063) Complex EM visit Add On G2211 Diagnoses Anxiety, generalized F41.1 Difficulty sleeping G47.9 Lipid disorder E78.9 Tobacco abuse Z72.0 Renal calculus, bilateral N20.0 Elevated blood sugar R73.9 Panlobular emphysema J43.1 COPD type: emphysema Emphysema type: panlobular Additional Codes JOSHUA-7 Assessment Billing - JOSHUA-7 Assessment Tool: JOSHUA-7 Assessment [id number] ([id number]) PHQ-9 - 39837 - PHQ-9 Billing: Yes ([id number]) Assessment & Plan Assessment & Plan (1) Anxiety, generalized: Code(s): F41.1 - Generalized anxiety disorder Category: Medical (2) Difficulty sleeping: Code(s): G47.9 - Sleep disorder, unspecified Category: Medical (3) Lipid disorder: Code(s): E78.9 - Disorder of lipoprotein metabolism, unspecified Category: Medical (4) Tobacco abuse: Code(s): Z72.0 - Tobacco use Category: Medical (5) Renal calculus, bilateral: Code(s): N20.0 - Calculus of kidney Category: Medical (6) Elevated blood sugar: Code(s): R73.9 - Hyperglycemia, unspecified Category: Medical (7) COPD (chronic obstructive pulmonary disease): Code(s): J44.9 - Chronic obstructive pulmonary disease, unspecified Category: Medical Qualifiers: COPD type: emphysema Emphysema type: panlobular Qualified Code(s): J43.1 - Panlobular emphysema Plan - The patient is a 74-year-old female presenting for a three-month follow-up appointment. - Family dynamics have caused significant psychological stress owing to political disagreements, leading to avoidance of gatherings and subsequent stress symptoms. - Renal stones led to stent placement, pending further evaluation and possible removal. - Hemoglobin level was noted to be slightly low previously, related to ongoing renal issues. - COVID-19 was contracted recently with mild symptoms, primarily cough and altered smell perception. - The patient remains an active smoker and is advised on associated health risks. - Vitamin D insufficiency was identified; supplementation has now been prescribed. - Current medications were reviewed, confirming the ongoing need and renewal of fluoxetine, lorazepam, and atorvastatin. - Expectation for consultation with Dr. Hoyos, urologist, for further renal evaluation was discussed. Problem List - Family tension related to family politics - Renal stones with stent placement - History of COVID-19 infection - Decreased hemoglobin levels (11.4) - Smoking - Stress-related symptoms (stomach ache) - ongoing anxiety and depression - Vitamin D Insufficiency Patient Instructions - Begin taking Vitamin D supplements as prescribed. - Cancel the May 26 physical exam appointment and reschedule for three months later. - Contact your urologist, Dr. Hoyos, for further information regarding stent management and upcoming renal scan. - Continue prescribed medications: fluoxetine 20 mg, lorazepam 0.5 mg, and atorvastatin 40 mg. - Monitor stress levels, avoid known stress triggers where possible. - Refrain from smoking, consider cessation programs for improved health. - Schedule the next follow-up in three months as discussed. Orders: Orders Complete Blood Count Auto Diff Today E78.9 - Disorder of lipoprotein meta bolism, unspecified, F41.1 - Generalized anxiety disorder, G47.9 - Sleep disorder, unspecified, J43.1 - Panlobular emphysema, N20.0 - Calculus of kidney, R73.9 - Hyperglycemia, unspecified, Z72.0 - Tobacco use Vitamin B12 Today E78.9 - Disorder of lipoprotein metabolism, unspecified, F41.1 - Generalized anxiety disorder, G47.9 - Sleep disorder, unspecified, J43.1 - Panlobular emphysema, N20.0 - Calculus of kidney, R73.9 - Hyperglycemia, unspecified, Z72.0 - Tobacco use Comprehensive Met. Panel Today E78.9 - Disorder of lipoprotein metabolism, unspecified, F41.1 - Generalized anxiety disorder, G47.9 - Sleep disorder, unspecified, J43.1 - Panlobular emphysema, N20.0 - Calculus of kidney, R73.9 - Hyperglycemia, unspecified, Z72.0 - Tobacco use Medications: New cyanocobalamin (vitamin B-12) 1,000 mcg PO DAILY 90 days 90 tabs 0RF Refilled lorazepam 0.5 mg PO DAILY 90 days PRN 90 tabs 0RF anxiety F41.1 - Generalized anxiety disorder, G47.9 - Sleep disorder, unspecified fluoxetine 20 mg PO QAM 90 caps 0RF atorvastatin 40 mg PO DAILY 90 days 90 tabs 0RF
[2024-05-23 10:12] VITALS: BP 138/78; PULSE 112; O2SAT 96; BMI 20.1
== END 2024-05-23 10:26 | disposition home or self-care (01) ==
PROVIDERS: PCP Internal Medicine; Visit Provider Internal Medicine
DX: F41.1 Generalized anxiety disorder (principal); G47.9 Sleep disorder, unspecified; E78.9 Disorder of lipoprotein metabolism, unspecified; Z72.0 Tobacco use; N20.0 Calculus of kidney; R73.9 Hyperglycemia, unspecified; J43.1 Panlobular emphysema

== ENCOUNTER → 2024-05-23 10:06 | Outpatient (BNVA) | payer MEDICARE, SELFPAY | PROVIDERS: PCP Internal Medicine; Visit Provider Internal Medicine | DX: F41.1 Generalized anxiety disorder (principal); G47.9 Sleep disorder, unspecified; E78.9 Disorder of lipoprotein metabolism, unspecified; N20.0 Calculus of kidney; R73.9 Hyperglycemia, unspecified; J43.1 Panlobular emphysema; Z72.0 Tobacco use | CPT/HCPCS: 96127; 99212 ==

== ENCOUNTER 2024-08-02 11:09 | Outpatient (REF) | payer MEDICARE, SELFPAY ==
--- OUTSIDE RECORDS SUMMARY | 2024-08-02 15:12 | XMS_ITS | Encounter Summary ---
Author Organization [facility] Address [address] [place] [address] Care Team Providers Care Appraiser Land Name Role Phone Physician, No Pcp Primary Care Provider Unavaila ble Encounter Details Date Type Department Care Team (Late st Contact Info) Description 07/06/2024 Lab Requisition [facility] - Main Lab [address] [facility] [place] [address] Linda Stevenson PA [address] [place] [address] Urinary tract infection, site not specified Social [...] no further workup 07/07/2024 1:51 PM EDT [facility] Urine Urine specimen obtained by clean catch procedure / Unknown 07/06/2024 07/06/2024 6:30 PM EDT us Linda MICHELLE LAB MICROBIOLOGY - GENERAL ORD ERABLES Final Result [facility] ([facility] [address] [place] [address], [place] [phone] documented in this encounter Visit Diagnoses Diagnosis Urinary tract infection, site not specified documented in this encounter Care Teams Appraiser Land Relationship Specialty Start Date End Date Physician, No Pcp PCP - General 06/07/24 documented as of this encounter
--- OUTSIDE RECORDS SUMMARY | 2024-08-02 15:12 | XMS_ITS | Encounter Summary ---
Author Organization [facility] Address [address] [place] [address] Care Team Providers Care Fpga Engineer Name Role Phone Physician, No Pcp Primary Care Provider Unavaila ble Encounter Details Date Type Department Care Team (Late st Contact Info) Description 06/13/[address] [facility] - Main Lab [address] [facility] [place] [address] Linda Stevenson PA [address] [place] [address] Urinary tract infection, site not specified Social [...] Urine No growth 06/14/2024 10:26 AM EDT [facility] Urine Urine specimen obtained by clean catch procedure / Unknown 06/13/2024 11:00 AM EDT 06/13/2024 2:45 PM EDT us Linda MICHELLE LAB MICROBIOLOGY - GENERAL ORD ERABLES Final Result [facility] [address] [place] [address], documented in this encounter Visit Diagnoses Diagnosis Urinary tract infection, site not specified documented in this encounter Care Teams Fpga Engineer Relationship Specialty Start Date End Date Physician, No Pcp PCP - General 06/07/24 documented as of this encounter
--- OUTSIDE RECORDS SUMMARY | 2024-08-02 15:12 | XMS_ITS | Clinical Summary ---
Author Organization [facility] Address [address] [place] [address] Phone Care Team Providers Care Potato Spotter Name Role Phone Physician, No Pcp Primary Care Provider Unavaila ble Allergies No known active allergies Encounters Date Type Department Care Team Description 07/06/2024 Lab Requisition [facility] Lab [address] [place] [phone] Linda Stevenson PA Urinary tract infection, site not specified 06/13/2024 Lab Requisition [facility] Lab [address] [place] [phone] Linda Stevenson PA Urinary tract infection, site not specified 06/07/2024 10:01 AM EST - 06/07/2024 11:59 PM EST Hospital Encounter [facility] Nuclear Medicine [address] [place] [phone] Hydronephrosis with ureteropelvic junction obstruction (CODE) Discharge [...] no further workup 07/07/2024 1:51 PM EDT [facility] Urine Urine specimen obtained by clean catch procedure / Unknown 07/06/2024 07/06/2024 6:30 PM EDT us Linda MICHELLE LAB MICROBIOLOGY - GENERAL ORD ERABLES Final Result [facility] [address] [place] [address], [place] [phone] * NM Kidney Morphology Vasc Flow Function [...] Signed Date: 06/13/2024 13:01 ET Workstation ID: [id number] Transcribed By: Self Edit Transcribed Date: 06/13/2024 [...] Signed Date: 06/13/2024 13:01 ET Workstation ID: [id number] Transcribed By: Self Edit Transcribed Date: 06/13/2024 12:49 ET Gamal Hoyos MD IMG NM PROCEDURES Final Result from Last 3 Months Insurance [employer] MED[employer]ARE ADVANTAGE Care Teams Potato Spotter Relationship Specialty Start Date End Date Physician, No Pcp PCP - General 06/07/24
== END 2024-08-02 11:10 | disposition home or self-care (01) ==
LOC: HO.LAB 11:09
PROVIDERS: PCP Internal Medicine; Visit Provider Internal Medicine
DX: Z09 Encounter for follow-up examination after completed treatment for conditions other than malignant neoplasm (principal); R55 Syncope and collapse; S09.90XD Unspecified injury of head, subsequent encounter; N39.0 Urinary tract infection, site not specified; S01.01XD Laceration without foreign body of scalp, subsequent encounter; Z91.81 History of falling
CPT/HCPCS: 81003; 87086; 99212

== ENCOUNTER 2024-08-02 11:09 | Outpatient (AMB) | payer MEDICARE, SELFPAY ==
[2024-08-02 11:13] VITALS: BP 128/86; PULSE 100; O2SAT 97; BMI 19.1
--- NOTE | 2024-08-02 11:13 | A.OFFPC_ITS ---
Vital Signs 3 08/02/24 11:13 Height 5 ft 8 in Weight 125 lb 8 oz BMI 19.1 BP 128/86 Blood Pressure Location Lt brachial Position Sitting Pulse 100 Pulse Source Pulse Oximeter Pulse Oximetry (%) 97 Oxygen Delivery Method Room Air Intake Visit Reasons: [facility] ED F/up Allergies No Known Allergies Allergy (Verified 08/02/24 11:14) Medication List - Last Reconciled 08/02/24 by Abigail Riggs MD atorvastatin 40 mg PO DAILY 90 days cyanocobalamin (vitamin B-12) 1,000 mcg PO DAILY 90 days fluoxetine 20 mg PO QAM lorazepam 0.5 mg PO DAILY PRN 90 days Tobacco use date assessed: 08/02/24 Fall risk assessment: 1 Fall in past year Last assessed Fall Risk: 08/02/24 Dental Screening Dental Screen Date: 08/02/24 Did you have a dental visit in the last 12 months?: No Did you have a dental problem in the last 6 months where you did not have access to dental care?: No Was dental information given to patient?: Patient declined HPI [facility] ED F/up 2 HPI0 Details Patient is a 74-year-old female came in today after emergency room visit dated of this month patient was kept there until 07/26/2024 Patient encountered 8 cm in length laceration left side of scalp Eight sutures were applied Patient encountered laceration after fall while doing grocery shopping, she felt dizzy and fell passing out Patient was standing at the check out when she started feeling lightheaded, in emergency room she was found to be dehydrated and had a UTI patient was treated with antibiotics cefpodoxime for 7 days She had a workup done for neck injury and head injury Labs showed hemoglobin of 10.9 hematocrit 34.[address] scan of head and neck showed no acute findings CT scan of neck also showed no acute findings Today 8 sutures were removed from left forehead without any problem patient tolerated procedure well laceration is healed UA done showed persistent infection, I am prescribing Macrobid b.i.d. for 7 days We will send the urine for culture [facility] Medical History Tobacco abuse Dysuria Lipid disorder Difficulty sleeping Anxiety, generalized Kidney stones Surgical History History of lithotripsy Family History Father COPD (chronic obstructive pulmonary disease) Mother COPD (chronic obstructive pulmonary disease) Breast cancer CHF (congestive heart failure) Colon cancer Maternal Grandmother No problems noted. Maternal Aunt Breast cancer Brother No problems noted. Sister Breast cancer Son No problems noted. Daughter No problems noted. Other Mental health disorder Social History Housing: House Alcohol intake: current Alcohol intake frequency: a few times a month Alcohol type: wine Patient Tobacco Use Status: Current everyday Tobacco user Cigarettes Per Day: 10 e-Cigarette/Vaping Use: Never Used service: No Current occupational status: retired Cognitive needs: No Hearing needs: No Vision needs: No Questionnaire Thrive Questionnaire Date Thrive assessed: 08/02/24 I am a: Patient What is your living situation today?: I have a steady place to live Within the past 12 months, did the food you bought not last and you didn't have the money to get more?: Never true Within the past 12 months, did you worry whether your food would run out before you got money to buy more?: Never true Do you have trouble paying for medicines?: No Do you have trouble getting transportation to medical appointments?: No Do you have trouble paying your heating and electricity bill?: No Do you have trouble taking care of your child, family member or friend?: No Do you have trouble with day-to-day activities such as bathing, preparing meals, shopping, managing finances, etc.?: No Are you currently unemployed and looking for a job?: No Are you interested in more education?: No Please select the resources that you would like help with: None Currently or been in a relationship where the following occur: No concerns reported THRIVE Score: 0 AUDIT C Alcohol Use Questionnaire (AUDIT-C) 1. How often do you have a drink containing alcohol?: Monthly or less 2. How many drinks containing alcohol do you have on a typical day when you are drinking?: 1 or 2 3. How often do you have six or more drinks on one occasion?: Never Total Score: 1 Score Reviewed/Action Taken: Yes JOSHUA-7 AMB Questionnaire JOSHUA-7 Date JOSHUA - 7 assessed: 05/23/24 Source: Developed by Drs. Juaquin Cowart, Lizzeth Tipton, Avelino Calle and colleagues, with an educational ventura from [employer] Review of Systems Const Denies chills and Denies fever(s) ENT Denies epistaxis and Denies nasal discharge Card Denies chest pain Resp Denies chest congestion, Denies cough and Denies hemoptysis GI Denies diarrhea and Denies nausea Skin/Breast Denies rash Neuro Reports no additional complaints Psych Reports no additional complaints Endo Reports no additional complaints Physical exam (Primary Care) Vital Signs: Last Vital Signs Pulse 100 08/02/24 11:13 BP 128/86 08/02/24 11:13 Pulse Ox 97 08/02/24 11:13 Oxygen Delivery Method Room Air 08/02/24 11:13 BMI result Body Mass Index 19.1 Tobacco/Smoking Status: Tobacco use Status Tobacco use date assessed 08/02/24 08/02/24 11:15 Patient Tobacco Use Status Current everyday Tobacco 08/02/24 11:13 e-Cigarette/Vaping Use Never Used 08/02/24 11:13 Thrive Assessment: Date of Thrive Assessment Date Thrive assessed 08/02/24 08/02/24 11:23 Currently or been in a relationship where the following occur: No concerns reported Const General: cooperative, comfortable and no acute distress Orientation/consciousness: patient oriented x3 [facility] Face images: 2 1. It cm healing laceration, 8 sutures removed without any complication Eyes General: appearance normal, both eyes and all related structures Neck Neck: Yes supple Resp Effort & Inspection: normal respiratory effort, no cough and no stridor Cardio Rhythm: regular rhythm Heart sounds: S1 normal heart sound present and S2 normal heart sound present Skin General skin exam: turgor normal Neuro General: patient oriented x3, tone normal and moves all extremities Extrem Right lower extremity: no edema Left lower extremity: no edema Results AMB Urinalysis, Automated 2 UA Leukoctes 500 Mami/uL Last Edit by Felicia So CMA on 08/02/24 12:43 UA Nitrite Last Edit by Felicia So CMA on 08/02/24 12:43 UA Urobilinogen 0.2 mg/dL Last Edit by Felicia So CMA on 08/02/24 12:4 3 UA Protein 30 mg/dL Last Edit by Felicia So CMA on 08/02/24 12:43 UA pH 6.0 Last Edit by Felicia So, SUZANNE on 08/02/24 12:43 UA Blood 200 Rigo/uL Last Edit by Felicia So, SUZANNE on 08/02/24 12:43 UA Specific Treynor 1.005 Last Edit by Felicia So, SUZANNE on 08/02/24 12: 43 UA Ketone Negative Last Edit by Felicia So, SUZANNE on 08/02/24 12:43 UA Bilirubin 0 mg/dL Last Edit by Felicia So, SUZANNE on 08/02/24 12:43 UA Glucose 0 mg/dL Last Edit by Felicia So CMA on 08/02/24 12:43 Results Reviewed Results Reviewed: Laboratory Last Values Urine pH (Auto) 6.0 08/02/24 12:41 Specific Treynor (Auto) 1.005 08/02/24 12:41 Urine Protein (Auto) 30 mg/dL 08/02/24 12:41 Glucose (UA)(Auto) 0 mg/dL 08/02/24 12:41 Urine Ketones (Auto) Negative 08/02/24 12:41 Urine Blood (Auto) 200 Rigo/uL 08/02/24 12:41 Urine Bilirubin (Auto) 0 mg/dL 08/02/24 12:41 Urine Urobilinogen (Auto) 0.2 mg/dL 08/02/24 12:41 Leukocyte Esterase (Auto) 500 Mami/uL 08/02/24 12:41 Coding Level of Care Code Est Pt Level 5 (20480) Diagnoses Hospital discharge follow-up Z09 Vasovagal syncope R55 Syncope type: vasovagal syncope Traumatic injury of head, subsequent encounter S09.90XD Encounter type: subsequent encounter Recurrent UTI N39.0 Laceration re-check T14.8XXD Encounter for removal of sutures Z48.02 Fall, subsequent encounter W19.XXXD Encounter type: subsequent encounter Time Spent (min) 41 Comment Reviewing hospital note, [id number], suture removal, UA, coordination Assessment & Plan Assessment & Plan (1) Hospital discharge follow-up: Code(s): Z09 - Encounter for follow-up examination after completed treatment for conditions other than malignant neoplasm Category: Medical (2) Syncope: Code(s): R55 - Syncope and collapse Category: Medical Qualifiers: Syncope type: vasovagal syncope Qualified Code(s): R55 - Syncope and collapse (3) Head trauma: Code(s): S09.90XA - Unspecified injury of head, initial encounter Category: Medical Qualifiers: Encounter type: subsequent encounter Qualified Code(s): S09.90XD - Unspecified injury of head, subsequent encounter (4) Recurrent UTI: Code(s): N39.0 - Urinary tract infection, site not specified Category: Medical (5) Laceration re-check: Code(s): T14.8XXD - Other injury of unspecified body region, subsequent encounter Category: Medical (6) Encounter for removal of sutures: Code(s): Z48.02 - Encounter for removal of sutures Category: Medical (7) Fall: Code(s): W19.XXXA - Unspecified fall, initial encounter Category: Medical Qualifiers: Encounter type: subsequent encounter Qualified Code(s): W19.XXXD - Unspecified fall, subsequent encounter Plan Patient is a 74-year-old female came in today after emergency room visit dated of this month patient was kept there until 07/26/2024 Patient encountered 8 cm in length laceration left side of scalp Eight sutures were applied Patient encountered laceration after fall while doing grocery shopping, she felt dizzy and fell passing out Patient was standing at the check out when she started feeling lightheaded, in emergency room she was found to be dehydrated and had a UTI patient was treated with antibiotics cefpodoxime for 7 days She had a workup done for neck injury and head injury Labs showed hemoglobin of 10.9 hematocrit 34.[address] scan of head and neck showed no acute findings CT scan of neck also showed no acute findings Today 8 sutures were removed from left forehead without any problem patient tolerated procedure well laceration is healed UA done showed persistent infection, I am prescribing Macrobid b.i.d. for 7 days We will send the urine for culture Orders: Orders 2 AMB Urinalysis Automated Today N39.0 - Urinary tract infection, site not specified Medications: New 2 nitrofurantoin monohyd/m-cryst 100 mg (Macrobid) must administer with a meal/food 100 mg PO Q12H 14 caps 0RF 7 days Refilled 2 atorvastatin 40 mg PO DAILY 90 tabs 0RF 90 days
--- OUTSIDE RECORDS SUMMARY | 2024-08-02 12:46 | XMS_ITS | Encounter Summary ---
Author Organization [facility] Address [address] [place] [address] Care Team Providers Care Double Corner Cutter Name Role Phone Physician, No Pcp Primary Care Provider Unavaila ble Encounter Details Date Type Department Care Team (Late st Contact Info) Description 07/06/2024 Lab Requisition [facility] - Main Lab [address] [facility] [place] [address] Linda Stevenson PA [address] [place] [address] Urinary tract infection, site not specified Social History Tobacco Use Types Packs/Day Years Used Date Smoking Tobacco: Never Assessed Comments Unknown Sex and Gender Information Value Date Recorded Sex Assigned at Female 05/30/2024 9:26 AM EST Legal Sex Female 1:35 PM EDT Gender Identity Female 05/30/2024 9:26 AM EST Sexual Orientation Straight 05/30/2024 9: 26 AM EST documented as of this encounter Plan of Treatment Not on file documented as of this encounter Procedures Procedure Name Priority Date/Time Associated Diagnosis Comments CULTURE URINE Routine 07/06/2024 12:00 AM EDT Urinary tract infection, site not specified documented in this encounter Results * Culture urine (07/06/2024 12:00 AM EDT) Culture, Urine <10,000 CFU/mL gram positive cocci, insignificant count, no further workup 07/07/2024 1:51 PM EDT [facility] ([facility] Urine Urine specimen obtained by clean catch procedure / Unknown 07/06/2024 07/06/2024 6:30 PM EDT us Linda MICHELLE LAB MICROBIOLOGY - GENERAL ORD ERABLES Final Result [facility] ([facility]) [facility] [address] [place] [address], [place] [phone] documented in this encounter Visit Diagnoses Diagnosis Urinary tract infection, site not specified documented in this encounter Care Teams Double Corner Cutter Relationship Specialty Start Date End Date Physician, No Pcp PCP - General 06/07/24 documented as of this encounter
--- OUTSIDE RECORDS SUMMARY | 2024-08-02 12:46 | XMS_ITS | Encounter Summary ---
Author Organization [facility] Address [address] [place] [address] Care Team Providers Care Canvas Goods Maker Name Role Phone Physician, No Pcp Primary Care Provider Unavaila ble Encounter Details Date Type Department Care Team (Late st Contact Info) Description 06/13/2024 Lab Requisition [facility] - Main Lab [address] [facility] [place] [address] Linda Stevenson PA [address] [place] [address] Urinary tract infection, site not specified Social [...] Date/Time Associated Diagnosis Comments CULTURE URINE Routine 06/13/2024 11:00 AM EDT Urinary tract infection, site not specified documented in this encounter Results * Culture urine (06/13/2024 11:00 AM EDT) Culture, Urine No growth 06/14/2024 10:26 AM EDT [facility] Urine Urine specimen obtained by clean catch procedure / Unknown 06/13/2024 11:00 AM EDT 06/13/2024 2:45 PM EDT us Linda MICHELLE LAB MICROBIOLOGY - GENERAL ORD ERABLES Final Result [facility] [address] [place] [address], documented in this encounter Visit Diagnoses Diagnosis Urinary tract infection, site not specified documented in this encounter Care Teams Canvas Goods Maker Relationship Specialty Start Date End Date Physician, No Pcp PCP - General 06/07/24 documented as of this encounter
--- OUTSIDE RECORDS SUMMARY | 2024-08-02 12:46 | XMS_ITS | Clinical Summary ---
Author Organization [facility] Address [address] [place] [address] Phone Care Team Providers Care Ends Breakage Clerk Name Role Phone Physician, No Pcp Primary Care Provider Unavaila ble Allergies No known active allergies Encounters Date Type Department Care Team Description 07/06/2024 Lab Requisition [facility] Lab [address] [place] [phone] Linda Stevenson PA Urinary tract infection, site not specified 06/13/2024 Lab Requisition [facility] Lab [address] [place] [phone] Linda Stevenson PA Urinary tract infection, site not specified 06/07/2024 10:01 AM EST - 06/07/2024 11:59 PM EST Hospital Encounter [facility] Nuclear Medicine [address] [place] [phone] Hydronephrosis with ureteropelvic junction obstruction (CODE) Discharge Disposition: Home or Self Care from Last 3 Months Social History Tobacco Use Types Packs/Day Years Used Date Smoking Tobacco: Never Assessed Comments Unknown Sex and Gender Information Value Date Recorded Sex Assigned at Female 05/30/2024 9:26 AM EST Legal Sex Female 1:35 PM EDT Gender Identity Female 05/30/2024 9:26 AM EST Sexual Orientation Straight 05/30/2024 9: 26 AM EST Plan of Treatment Health Maintenance Due Date Last Done Comments Breast Cancer Screening 1950 Zoster Vaccines (1 of 2) 02/04/2000 Colorectal Cancer Screening: Colonoscopy 11/05/2023 Depression Screening 11/05/2023 Falls Risk Assessment 11/05/2023 Hepatitis C Screening 11/05/2023 Medicare Annual Wellness Visit 11/05/2023 Osteoporosis Screening (Bone Density Screening) 11/05/2023 Social Influencers of Health Screening 11/05/2023 COVID-19 Vaccine ( season) 2023 08/01/2020, 07/11/2020 Influenza Vaccine (Season Ended) 2024 02/14/2023, 01/26/2022, 01/17/2021, Additional history exists DTaP,Tdap,and Td Vaccines (2 - Td or Tdap) 01/25/2029 01/25/2019 Pneumococcal Vaccine: 50+ Years Completed 01/26/2022, 01/30/2019, 02/19/2016 RSV Immunization Adult Patients Completed 02/14/2023 HIB Vaccines Aged Out No longer eligi ble based on patient's age to complete this topic HPV Vaccines Aged Out No longer eligi ble based on patient's age to complete this topic Hepatitis A Vaccines Aged Out No long er eligible based on patient's age to complete this topic Hepatitis B Vaccines Aged Out No long er eligible based on patient's age to complete this topic IPV Vaccines Aged Out No longer eligi ble based on patient's age to complete this topic MMR Vaccines Aged Out No longer eligi ble based on patient's age to complete this topic Meningococcal ACWY Vaccine Aged Out N o longer eligible based on patient's age to complete this topic Meningococcal B Vaccine Aged Out No l onger eligible based on patient's age to complete this topic RSV Immunization Patients Under 20 months Aged Out No longer eligible based on patient's age to complete this topic Varicella Vaccines Aged Out No longer eligible based on patient's age to complete this topic Procedures Procedure Name Priority Date/Time Associated Diagnosis Comments CULTURE URINE Routine 07/06/2024 12:00 AM EDT Urinary tract infection, site not specified CULTURE URINE Routine 06/13/2024 11:00 AM EDT Urinary tract infection, site not specified NM KIDNEY MORPHOLOGY VASC FLOW FUNCTION W PHARM SINGLE Routine 06/07/2024 12:24 PM EST Hydronephrosis with ureteropelvic junction obstruction (CODE) from Last 3 Months Results * Culture urine (07/06/2024 12:00 AM EDT) Only the most recent of2 resultswithin the time period is included. Culture, Urine <10,000 CFU/mL gram positive cocci, insignificant count, no further workup 07/07/2024 1:51 PM EDT [facility] Urine Urine specimen obtained by clean catch procedure / Unknown 07/06/2024 07/06/2024 6:30 PM EDT us Linda MICHELLE LAB MICROBIOLOGY - GENERAL ORD ERABLES Final Result [facility] [address] [place] [address], [place] [phone] * NM Kidney Morphology Vasc Flow Function W Pharm Single (06/07/2024 12:24 PM EST) Anatomical Region Laterality Modality Body Nuclear Medicine 06/13/2024 12:3 3 PM EDT Impressions 06/13/2024 1:01 PM EDT Renal function is relatively well maintained bilaterally with slightly reduced contribution from the right kidney. ??The left kidney demonstrates normal perfusion and drainage in the right kidney exhibits delayed peak uptake and retention of tracer suggesting slightly impaired clearance/slower drainage but without overt obstruction. -------- FINAL REPORT -------- Dictated By: Jake Allison Dictated Date: 06/13/2024 12:33 ET Assigned Physician: Jake Allison Reviewed and Electronically Signed By: Jake Allison Signed Date: 06/13/2024 13:01 ET Workstation ID: [id number] Transcribed By: Self Edit Transcribed Date: 06/13/2024 12:49 ET Narrative 06/13/2024 1:01 PM EDT NM KIDNEY MORPHOLOGY VASC FLOW FUNCTION W PHARM SINGLE INDICATION: HYDRONEPHROSIS WITH URETEROPELVIC JUNCTION OBSTRUCTION, N13.0 COMPARISON: TECHNIQUE: Dynamic images of the kidneys were obtained for 40 minutes following injection of 12.2 millicuries of technetium 99m MAG3. Intravenous injection of 40 milligrams of furosemide was given at 20 minutes. FINDINGS: On the angiographic phase of the study, blood flow to the kidneys appears normal and symmetric. In the right kidney, there is a peak of activity occurring at 11.69 minutes followed by borderline washout of activity from the collecting system and cortex.. Time to half washout after LASIX administration 9.25 minutes. In the left kidney, there is a peak of activity occurring at 2.69 minutes followed by progressive washout of activity from the collecting system and cortex.. Time to half washout after LASIX administration is 9.25 minutes. Split renal function measures 58.17% for the right kidney and 41.83% for the left kidney. Procedure Note Jake Allison MD - 06/13/2024 NM KIDNEY MORPHOLOGY VASC FLOW FUNCTION W PHARM SINGLE INDICATION: HYDRONEPHROSIS WITH URETEROPELVIC JUNCTION OBSTRUCTION, N13.0 COMPARISON: TECHNIQUE: Dynamic images of the kidneys were obtained for 40 minutes followinginjection of 12.2 millicuries of technetium 99m MAG3. Intravenous injection of 40 milligrams of furosemide was given at 20minutes. FINDINGS: On the angiographic phase of the study, blood flow to the kidneys appearsnormal and symmetric. In the right kidney, there is a peak of activity occurring at 11.69minutes followed by borderline washout of activity from the collectingsystem and cortex.. Time to half washout after LASIX administration 9.25 minutes. In the left kidney, there is a peak of activity occurring at 2.69 minutesfollowed by progressive washout of activity from the collecting system andcortex.. Time to half washout after LASIX administration is 9.25 minutes. Split renal function measures 58.17% for the right kidney and 41.83% forthe left kidney. IMPRESSION: Renal function is relatively well maintained bilaterally with slightlyreduced contribution from the right kidney. The left kidney demonstratesnormal perfusion and drainage in the right kidney exhibits delayed peakuptake and retention of tracer suggesting slightly impairedclearance/slower drainage but without overt obstruction. -------- FINAL REPORT -------- Dictated By: Jake Allison Dictated Date: 06/13/2024 12:33 ET Assigned Physician: Jake Allison Reviewed and Electronically Signed By: Jake Allison Signed Date: 06/13/2024 13:01 ET Workstation ID: [id number] Transcribed By: Self Edit Transcribed Date: 06/13/2024 12:49 ET Gamal Hoyos MD IMG NM PROCEDURES Final Result from Last 3 Months Insurance [employer] MED[employer]ARE [employer]VANTAGE Care Teams Ends Breakage Clerk Relationship Specialty Start Date End Date Physician, No Pcp PCP - General 06/07/24
== END 2024-08-02 14:57 | disposition home or self-care (01) ==
LOC: HO.HMCC 11:10
PROVIDERS: PCP Internal Medicine; Visit Provider Internal Medicine
DX: R55 Syncope and collapse (principal); N39.0 Urinary tract infection, site not specified; S09.90XD Unspecified injury of head, subsequent encounter; T14.8XXD Other injury of unspecified body region, subsequent encounter; Z68.1 Body mass index [BMI] 19.9 or less, adult; Z09 Encounter for follow-up examination after completed treatment for conditions other than malignant neoplasm; Z48.02 Encounter for removal of sutures; W19.XXXD Unspecified fall, subsequent encounter

== ENCOUNTER 2024-08-25 13:19 | Outpatient (REF) | payer MEDICARE, SELFPAY ==
--- OUTSIDE RECORDS SUMMARY | 2024-08-25 13:22 | XMS_ITS | Encounter Summary ---
Author Organization [facility] Address [address] [place] [address] Care Team Providers Care Farm General Manager Name Role Phone Physician, No Pcp Primary Care Provider Unavaila ble Encounter Details Date Type Department Care Team (Late st Contact Info) Description 06/13/2024 Lab Requisition [facility] - Main Lab [address] [facility] [place] [address] iLnda Stevenson PA [address] [place], [place] [phone] Urinary tract infection, site not specified Social [...] Urine No growth 06/14/2024 10:26 AM EDT [facility] Urine Urine specimen obtained by clean catch procedure / Unknown 06/13/2024 11:00 AM EDT 06/13/2024 2:45 PM EDT us Linda MICHELLE LAB MICROBIOLOGY - GENERAL ORD ERABLES Final Result [facility] [address] [place] [address], documented in this encounter Visit Diagnoses Diagnosis Urinary tract infection, site not specified documented in this encounter Care Teams Farm General Manager Relationship Specialty Start Date End Date Physician, No Pcp PCP - General 06/07/24 documented as of this encounter
[2024-08-25 16:24] LABS: MANUAL DIFF FLAG NO
[2024-08-25 16:40] LABS: Basophils Percent Auto 0.7 % (0-2); Eosinophils Absolute Auto 0.1 X10*3/uL (0.0-0.4); Eosinophils Percent Auto 1.1 % (0-4); Hematocrit 35.7 % (37.0-47.0); Hemoglobin 11.5 g/dl (12.0-16.0); Imm Gran Abs Auto 0.02 X10*3/uL (0.00-0.03); Imm Gran Pct Auto 0.4 % (0.0-0.4); Lymphocytes Absolute Auto 1.5 X10*3/uL (1.2-4.9); Lymphocytes Percent Auto 27.5 % (20-40); Mean Corpuscular HGB Conc 32.2 g/dl (31.0-35.0); Mean Corpuscular Hemoglobin 30.6 pg (27.0-33.0); Mean Corpuscular Volume 94.9 fL (80.0-98.0); Mean Platelet Volume 10.5 fL (9.4-12.3); Monocytes Absolute Auto 0.5 X10*3/uL (0.1-1.2); Monocytes Percent Auto 8.6 % (2-11); Neutrophils Absolute Auto 3.5 x10*3/uL (2.0-8.3); Neutrophils Percent Auto 61.7 % (45-73); Platelet Count 231 X10*3/uL (160-400); Red Blood Count 3.76 X10*6/uL (4.20-5.50); Red Cell Distribution Width 13.6 % (11.0-16.0); White Blood Count 5.6 X10*3/uL (4.8-10.8)
[2024-08-25 16:56] LABS: Alanine Aminotransferase 11 U/L (0-31); Albumin Level 4.1 g/dL (3.5-5.0); Alkaline Phosphatase 54 U/L (39-117); Anion Gap 14 (12-20); Aspartate Amino Transferase 24 U/L (5-31); Bilirubin Total 0.4 mg/dL (0.0-1.0); Blood Urea Nitrogen 27 mg/dL (9-16); Calcium 9.4 mg/dL (8.4-10.2); Carbon Dioxide 25 mmol/L (22-29); Chloride 105 mmol/L (96-108); Cholesterol 156 mg/dL (<200); Estimated Glomerular Filt Rate 40; Glucose Fasting 92 mg/dL (60-99); Glucose Random 91 mg/dL (60-115); HDL Cholesterol 53 mg/dL (>40); LDL Cholesterol Calculated 82 mg/dL (<100); Potassium 4.4 mmol/L (3.3-5.1); Sodium 140 mmol/L (135-145); Total Protein 7.1 g/dL (6.5-8.0); Triglycerides 105 mg/dL (<150)
[2024-08-25 17:22] LABS: Vitamin B12 866 pg/mL (200-900)
== END 2024-08-25 13:20 | disposition home or self-care (01) ==
LOC: HO.HMGCLDS 13:19
PROVIDERS: PCP Internal Medicine; Visit Provider Internal Medicine
DX: F41.1 Generalized anxiety disorder (principal); D50.9 Iron deficiency anemia, unspecified; N20.0 Calculus of kidney; J43.1 Panlobular emphysema; F19.20 Other psychoactive substance dependence, uncomplicated; Z72.0 Tobacco use; E78.9 Disorder of lipoprotein metabolism, unspecified; G47.9 Sleep disorder, unspecified; R73.9 Hyperglycemia, unspecified
CPT/HCPCS: 36415; 80053; 80061; 82607; 85025

== ENCOUNTER 2024-09-12 08:47 | Outpatient (AMB) | payer MEDICARE, SELFPAY ==
--- NOTE | 2024-09-12 08:49 | A.OFFPC_ITS ---
Vital Signs 09/12/24 08:50 Height 5 ft 8 in Weight 128 lb 2 oz BMI 19.5 BP 120/72 Blood Pressure Location Rt brachial Position Sitting Respiration 17 Pulse 101 H Pulse Source Pulse Oximeter Pulse Oximetry (%) 97 Oxygen Delivery Method Room Air Intake Visit Reasons: Annual PE ~ R/S twice Allergies No Known Allergies Allergy (Verified 09/12/24 08:54) Medication List - Last Reconciled 09/12/24 by Abigail Riggs MD atorvastatin 40 mg PO DAILY 90 days cyanocobalamin (vitamin B-12) 1,000 mcg PO DAILY 90 days fluoxetine 20 mg PO QAM lorazepam 0.5 mg PO DAILY PRN 90 days Tobacco use date assessed: 09/12/24 Fall risk assessment: No Falls in past year Last assessed Fall Risk: 09/12/24 Dental Screening Dental Screen Date: 09/12/24 Did you have a dental visit in the last 12 months?: No Did you have a dental problem in the last 6 months where you did not have access to dental care?: No Was dental information given to patient?: Patient declined HPI Annual PE ~ R/S twice HPI Details History of Present Illness - The patient is a 74-year-old female pr esenting for a physical exam. - Past colonoscopy from five years ago r evealed a benign polyp. - Has been experiencing allergies, menti oning a general awareness of widespread allergy symptoms in the community. - Recently made significant progress in reducing tobacco use, currently smoking approximately three cigarettes per day. - History of relatively stable iron defi ciency with no anemia but noted to have slightly low Hb that is stable. Medical History: - History of allergies - History of polyp removal during a colo noscopy Social History: - Reduced smoking to approximately three cigarettes per day - Lives in an area with animals, includi ng encounters with bears - Engages in yard work, however, the pat ient expressed frustration with not being able to complete tasks due to weather constraints - Adopts a diet including a significant intake of red meat, contributing to stable iron levels Health Maintenance - Mammography was performed in April last year with plans to resume Diagnostic results - Labs (August): Kidney functions normal, l iver enzymes normal, LDL at 82, no anemia observed, slight and stable low Hb at 11.5 Patient Instructions - Consider starting low-dose iron supple ments if no constipation occurs, potentially twice per week - stop tobacco use - Schedule mammogram as intended - book your next follow-up appointment w lucia garcia due for medication refill that will be early November Review of Systems - General: No fever no chills - Neurological: No headaches no dizzin ess - Ear nose throat: No sore throat no hearing difficulty no ear pain - Cardiovascular: No syncope, no chest pain, no palpitations - Gastrointestinal: No nausea vomiting or diarrhea - Endocrine: No polyuria polydipsia no heat intolerance - Genitourinary: No dysuria - Skin: No new complaints Physical Exam General: Cooperative, healthy appearing, comfortable, no acute distress Orientation: Patient oriented x3 Head: Normal to inspection Ears: Within normal limit visually Nose: Normal external nose present Face and sinus: Normal facial exam Eyes: Appearance normal, extraocular movement intact pupils reactive Neck: Normal visual inspection and supple Respiratory: Normal respiratory effort and able to speak in complete sentences. Clear to auscultation, no stridor Cardiovascular: S1 and S2 RRR GI: Normal to inspection. Soft to palpation and nontender Skin: Turgor normal, no acute findings Neuro: Patient oriented x3, motor sensory intact, balance intact, but patient experienced difficulty with tandem pass Extremities: Normal to inspection [facility] Medical History Tobacco abuse Dysuria Lipid disorder Difficulty sleeping Anxiety, generalized Kidney stones Surgical History History of lithotripsy Family History Father COPD (chronic obstructive pulmonary disease) Mother COPD (chronic obstructive pulmonary disease) Breast cancer CHF (congestive heart failure) Colon cancer Maternal Grandmother No problems noted. Maternal Aunt Breast cancer Brother No problems noted. Sister Breast cancer Son No problems noted. Daughter No problems noted. Other Mental health disorder Social History Housing: House Alcohol intake: current Alcohol intake frequency: a few times a month Alcohol type: wine Patient Tobacco Use Status: Current everyday Tobacco user Cigarettes Per Day: 10 e-Cigarette/Vaping Use: Never Used service: No Current occupational status: retired Cognitive needs: No Hearing needs: No Vision needs: No Questionnaire Thrive Questionnaire Date Thrive assessed: 09/12/24 I am a: Patient What is your living situation today?: I have a steady place to live Within the past 12 months, did the food you bought not last and you didn't have the money to get more?: Never true Within the past 12 months, did you worry whether your food would run out before you got money to buy more?: Never true Do you have trouble paying for medicines?: No Do you have trouble getting transportation to medical appointments?: No Do you have trouble paying your heating and electricity bill?: No Do you have trouble taking care of your child, family member or friend?: No Do you have trouble with day-to-day activities such as bathing, preparing meals, shopping, managing finances, etc.?: No Are you currently unemployed and looking for a job?: No Are you interested in more education?: No Please select the resources that you would like help with: None Currently or been in a relationship where the following occur: No concerns reported THRIVE Score: 0 AUDIT C Alcohol Use Questionnaire (AUDIT-C) 1. How often do you have a drink containing alcohol?: Monthly or less 2. How many drinks containing alcohol do you have on a typical day when you are drinking?: 1 or 2 3. How often do you have six or more drinks on one occasion?: Never Total Score: 1 Score Reviewed/Action Taken: Yes JOSHUA-7 AMB Questionnaire JOSHUA-7 Date JOSHUA - 7 assessed: 05/23/24 Source: Developed by Drs. Juaquin Cowart, Lizzeth Tipton, Avelino Calle and colleagues, with an educational ventura from [employer]. Physical exam (Primary Care) Vital Signs: Last Vital Signs Pulse 101 H 09/12/24 08:50 Resp 17 09/12/24 08:50 BP 120/72 09/12/24 08:50 Pulse Ox 97 09/12/24 08:50 Oxygen Delivery Method Room Air 09/12/24 08:50 BMI result Body Mass Index 19.5 Tobacco/Smoking Status: Tobacco use Status Tobacco use date assessed 09/12/24 09/12/24 08:54 Patient Tobacco Use Status Current everyday Tobacco 09/12/24 08:54 e-Cigarette/Vaping Use Never Used 09/12/24 08:54 Thrive Assessment: Date of Thrive Assessment Date Thrive assessed 09/12/24 09/12/24 08:54 Currently or been in a relationship where the following occur: No concerns reported Coding Level of Care Code Est Pt Level 3 (24590) Est Pt Prev Care >65y(07123) Diagnoses Encounter for general adult medical examination with abnormal findings Z00.01 Microcytic anemia D50.9 Panlobular emphysema J43.1 COPD type: emphysema Emphysema type: panlobular Drug dependency F19.20 Tobacco abuse Z72.0 Anxiety, generalized F41.1 Lipid disorder E78.9 Difficulty sleeping G47.9 Assessment & Plan Assessment & Plan (1) Encounter for general adult medical examination with abnormal findings: Code(s): Z00.01 - Encounter for general adult medical examination with abnormal findings Category: Medical (2) Microcytic anemia: Code(s): D50.9 - Iron deficiency anemia, unspecified Category: Medical (3) COPD (chronic obstructive pulmonary disease): Code(s): J44.9 - Chronic obstructive pulmonary disease, unspecified Category: Medical Qualifiers: COPD type: emphysema Emphysema type: panlobular Qualified Code(s): J43.1 - Panlobular emphysema (4) Drug dependency: Code(s): F19.20 - Other psychoactive substance dependence, uncomplicated Category: Medical (5) Tobacco abuse: Code(s): Z72.0 - Tobacco use Category: Medical (6) Anxiety, generalized: Code(s): F41.1 - Generalized anxiety disorder Category: Medical (7) Lipid disorder: Code(s): E78.9 - Disorder of lipoprotein metabolism, unspecified Category: Medical (8) Difficulty sleeping: Code(s): G47.9 - Sleep disorder, unspecified Category: Medical Plan History of Present Illness - The patient is a 74-year-old female presenting for a physical exam. - Past colonoscopy from five years ago revealed a benign polyp. - Has been experiencing allergies, mentioning a general awareness of widespread allergy symptoms in the community. - Recently made significant progress in reducing tobacco use, currently smoking approximately three cigarettes per day. - History of relatively stable iron deficiency with no anemia but noted to have slightly low Hb that is stable. Medical History: - History of allergies - History of polyp removal during a colonoscopy Social History: - Reduced smoking to approximately three cigarettes per day - Lives in an area with animals, including encounters with bears - Engages in yard work, however, the patient expressed frustration with not being able to complete tasks due to weather constraints - Adopts a diet including a significant intake of red meat, contributing to stable iron levels Health Maintenance - Mammography was performed in April of last year with plans to resume Diagnostic results - Labs (August): Kidney functions normal, liver enzymes normal, LDL at 82, no anemia observed, slight and stable low Hb at 11.5 Patient Instructions - Consider starting low-dose iron supplements if no constipation occurs, potentially twice per week - stop tobacco use - Schedule mammogram as intended - book your next follow-up appointment when you due for medication refill that will be early November
[2024-09-12 08:50] VITALS: BP 120/72; PULSE 101; RESP 17; O2SAT 97; BMI 19.5
--- OUTSIDE RECORDS SUMMARY | 2024-09-12 09:11 | XMS_ITS | Encounter Summary ---
Author Organization [facility] Address [address] [place] [address] Care Team Providers Care Management Internship Name Role Phone Physician, No Pcp Primary Care Provider Unavaila ble Encounter Details Date Type Department Care Team (Late st Contact Info) Description 06/13/2024 Lab Requisition [facility] - Main Lab [address] [facility] [place] [address] Linda Stevenson PA [address] [place], [place] [id number] Urinary tract infection, site not specified Social [...] Urine No growth 06/14/2024 10:26 AM EDT [facility] ([facility]) [facility] Urine Urine specimen obtained by clean catch procedure / Unknown 06/13/2024 11:00 AM EDT 06/13/2024 2:45 PM EDT us Linda MICHELLE LAB MICROBIOLOGY - GENERAL ORD ERABLES Final Result [facility] ([facility]) [facility] [address] [place] [address], documented in this encounter Visit Diagnoses Diagnosis Urinary tract infection, site not specified documented in this encounter Care Teams Management Internship Relationship Specialty Start Date End Date Physician, No Pcp PCP - General 06/07/24 documented as of this encounter
== END 2024-09-12 09:06 | disposition home or self-care (01) ==
LOC: HO.HMCC 08:47
PROVIDERS: PCP Internal Medicine; Visit Provider Internal Medicine
DX: Z00.00 Encounter for general adult medical examination without abnormal findings (principal); D50.9 Iron deficiency anemia, unspecified; J43.1 Panlobular emphysema; F19.20 Other psychoactive substance dependence, uncomplicated; Z72.0 Tobacco use; F41.1 Generalized anxiety disorder; E78.9 Disorder of lipoprotein metabolism, unspecified; G47.9 Sleep disorder, unspecified

== ENCOUNTER → 2024-09-12 08:47 | Outpatient (BNVA) | payer MEDICARE, SELFPAY | PROVIDERS: PCP Internal Medicine; Visit Provider Internal Medicine | DX: Z00.01 Encounter for general adult medical examination with abnormal findings (principal); D50.9 Iron deficiency anemia, unspecified; J43.1 Panlobular emphysema; F19.20 Other psychoactive substance dependence, uncomplicated; F41.1 Generalized anxiety disorder; E78.9 Disorder of lipoprotein metabolism, unspecified; G47.9 Sleep disorder, unspecified; Z72.0 Tobacco use | CPT/HCPCS: 99397 ==

== ENCOUNTER 2024-11-17 09:21 | Outpatient (AMB) | payer MEDICARE, SELFPAY ==
--- NOTE | 2024-11-17 09:27 | A.OFFPC_ITS ---
Vital Signs 11/17/24 09:29 Height 5 ft 8 in Weight 131 lb BMI 19.9 BP 130/72 Blood Pressure Location Lt brachial Position Sitting Pulse 101 H Pulse Source Pulse Oximeter Pulse Oximetry (%) 97 Oxygen Delivery Method Room Air Intake Visit Reasons: Med follow up Allergies No Known Allergies Allergy (Verified 11/17/24 09:29) Medication List - Last Reconciled 11/17/24 by Abigail Riggs MD atorvastatin 40 mg PO DAILY 90 days cyanocobalamin (vitamin B-12) 1,000 mcg PO DAILY 90 days fluoxetine 20 mg PO QAM lorazepam 0.5 mg PO DAILY PRN 90 days Tobacco use date assessed: 09/12/24 Fall risk assessment: 1 Fall in past year Last assessed Fall Risk: 11/17/24 Dental Screening Dental Screen Date: 09/12/24 [facility] Med follow up HPI Details Chief Complaint Ongoing care visit, her surgical procedure scheduled for next week. To replace ureteral stents History The patient is a 74-year-old female Nephrolithiasis: - The patient has a history of kidney st ones that required intervention. - Treatment for the stones has concluded . - Kidney function deteriorated based upo n filtration rate of 40. Kidney Stent Replacement: - An upcoming surgical procedure is sche duled for stent replacement. - Previous medical advice indicated the necessity of stents. - The patient will undergo regular proce dures for stent removal and replacement, projected every six months. Gross Hematuria: - The patient reports microscopic blood observed in the urine. - Associated symptoms include foul-smell ing urine. - Possible aggravation of symptoms by ki dney stones and the presence of stents. Anxiety stable patient is taking lorazepam as prescribed and fluoxetine Lipid disorder: LDL within reasonable range continue statins Microscopic anemia secondary to bleeding in urine Medications: - Atorvastatin for cholesterol managemen t - Fluoxetine for depression - Lorazepam for anxiety - Vitamin B12 supplements Social History: - The patient has actively reduced smoki ng to four cigarettes per day. - Recent acquisition of a new car has in fluenced the patient's decision to further minimize smoking due to family encouragement. Problem List - Chronic Kidney Disease - Nephrolithiasis (Kidney Stones) - Gross Hematuria - Anxiety - Depression - microscopic anemia Diagnostic results - Labs: Hemoglobin level of 11.5; liver enzymes within normal limits; B12 level normal; LDL controlled - Tests: Estimation of glomerular filtra tion rate 40 Jamul of Care: [facility] Patient Instructions - Continue to drink plenty of water to s adolfo hydrated. - Follow-up in three months for labs bef ore the next visit. - Avoid smoking . - Call the office if symptoms worsen or new symptoms occur. 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 Maternal Aunt Breast cancer Brother No problems noted. Sister Breast cancer Son No problems noted. Daughter No problems noted. Other Mental health disorder Social History Housing: House Alcohol intake: current Alcohol intake frequency: a few times a month Alcohol type: wine Patient Tobacco Use Status: Current everyday Tobacco user Cigarettes Per Day: 10 e-Cigarette/Vaping Use: Never Used service: No Current occupational status: retired Cognitive needs: No Hearing needs: No Vision needs: No Questionnaire Thrive Questionnaire Date Thrive assessed: 05/23/24 I am a: Patient What is your living situation today?: I have a steady place to live Within the past 12 months, did the food you bought not last and you didn't have the money to get more?: Never true Within the past 12 months, did you worry whether your food would run out before you got money to buy more?: Never true Do you have trouble paying for medicines?: No Do you have trouble getting transportation to medical appointments?: No Do you have trouble paying your heating and electricity bill?: No Do you have trouble taking care of your child, family member or friend?: No Do you have trouble with day-to-day activities such as bathing, preparing meals, shopping, managing finances, etc.?: No Are you currently unemployed and looking for a job?: No Are you interested in more education?: No Please select the resources that you would like help with: None Currently or been in a relationship where the following occur: No concerns reported THRIVE Score: 0 JOSHUA-7 AMB Questionnaire JOSHUA-7 Date JOSHUA - 7 assessed: 05/23/24 Source: Developed by Drs. Juaquin Cowart, Lizzeth Tipton, Avelino Calle and colleagues, with an educational ventura from [employer]. Physical exam (Primary Care) Vital Signs: Last Vital Signs Pulse 101 H 11/17/24 09:29 BP 130/72 11/17/24 09:29 Pulse Ox 97 11/17/24 09:29 Oxygen Delivery Method Room Air 11/17/24 09:29 BMI result Body Mass Index 19.9 Tobacco/Smoking Status: Tobacco use Status Tobacco use date assessed 09/12/24 11/17/24 09:31 Patient Tobacco Use Status Current everyday Tobacco 11/17/24 09:31 e-Cigarette/Vaping Use Never Used 11/17/24 09:31 Thrive Assessment: Date of Thrive Assessment Date Thrive assessed 05/23/24 11/17/24 09:31 Currently or been in a relationship where the following occur: No concerns reported Coding Level of Care Code Est Pt Level 4 (96716) Complex EM visit Add On G2211 Diagnoses Microcytic anemia D50.9 Panlobular emphysema J43.1 COPD type: emphysema Emphysema type: panlobular Drug dependency F19.20 Tobacco abuse Z72.0 Anxiety, generalized F41.1 Lipid disorder E78.9 Difficulty sleeping G47.9 Renal calculus, bilateral N20.0 Foul smelling urine R82.90 Assessment & Plan Assessment & Plan (1) Microcytic anemia: Code(s): D50.9 - Iron deficiency anemia, unspecified Category: Medical (2) COPD (chronic obstructive pulmonary disease): Code(s): J44.9 - Chronic obstructive pulmonary disease, unspecified Category: Medical Qualifiers: COPD type: emphysema Emphysema type: panlobular Qualified Code(s): J43.1 - Panlobular emphysema (3) Drug dependency: Code(s): F19.20 - Other psychoactive substance dependence, uncomplicated Category: Medical (4) Tobacco abuse: Code(s): Z72.0 - Tobacco use Category: Medical (5) Anxiety, generalized: Code(s): F41.1 - Generalized anxiety disorder Category: Medical (6) Lipid disorder: Code(s): E78.9 - Disorder of lipoprotein metabolism, unspecified Category: Medical (7) Difficulty sleeping: Code(s): G47.9 - Sleep disorder, unspecified Category: Medical (8) Renal calculus, bilateral: Code(s): N20.0 - Calculus of kidney Category: Medical (9) Foul smelling urine: Code(s): R82.90 - Unspecified abnormal findings in urine Category: Medical Plan Chief Complaint Ongoing care visit, her surgical procedure scheduled for next week. To replace ureteral stents History The patient is a 74-year-old female with a history of COPD still smoking 4 cigarettes daily Nephrolithiasis: - The patient has a history of kidney stones that required intervention. - Treatment for the stones has concluded. - Kidney function deteriorated based upon filtration rate of 40. Kidney Stent Replacement: - An upcoming surgical procedure is scheduled for stent replacement. - Previous medical advice indicated the necessity of stents. - The patient will undergo regular procedures for stent removal and replacement, projected every six months. Gross Hematuria: - The patient reports microscopic blood observed in the urine. - Associated symptoms include foul-smelling urine. - Possible aggravation of symptoms by kidney stones and the presence of stents. Anxiety stable patient is taking lorazepam as prescribed and fluoxetine Lipid disorder: LDL within reasonable range continue statins Microscopic anemia secondary to bleeding in urine Medications: - Atorvastatin for cholesterol management - Fluoxetine for depression - Lorazepam for anxiety - Vitamin B12 supplements Social History: - The patient has actively reduced smoking to four cigarettes per day. - Recent acquisition of a new car has influenced the patient's decision to further minimize smoking due to family encouragement. Problem List - Chronic Kidney Disease - Nephrolithiasis (Kidney Stones) - Gross Hematuria - Anxiety - Depression - microscopic anemia Diagnostic results - Labs: Hemoglobin level of 11.5; liver enzymes within normal limits; B12 level normal; LDL controlled - Tests: Estimation of glomerular filtration rate 40 Jamul of Care: [facility] Patient Instructions - Continue to drink plenty of water to stay hydrated. - Follow-up in three months for labs before the next visit. - Avoid smoking . - Call the office if symptoms worsen or new symptoms occur. - lorazepam refill sent for 3 month Medications: Refilled 2 fluoxetine 20 mg PO QAM 90 caps 0RF atorvastatin 40 mg PO DAILY 90 tabs 0RF 90 days lorazepam 0.5 mg PO DAILY PRN 90 tabs 0RF anxiety 90 days F41.1 - Generalized anxiety disorder, G47.9 - Sleep disorder, unspecified
[2024-11-17 09:29] VITALS: BP 130/72; PULSE 101; O2SAT 97; BMI 19.9
--- OUTSIDE RECORDS SUMMARY | 2024-11-17 09:36 | XMS_ITS | Encounter Summary ---
Author Organization [facility] Address [address] [place] [address] Care Team Providers Care Battery Builder Name Role Phone Physician, No Pcp Primary Care Provider Unavaila ble Encounter Details Date Type Department Care Team (Late st Contact Info) Description 06/13/2024 Lab Requisition [facility] - Main Lab [address] [facility] [place] [address] Linda Stevenson PA [address] [place], [place] [id number] Urinary tract infection, site not specified Social [...] growth 06/14/2024 10:26 AM EDT [facility] ([facility]) [facility] Urine Urine specimen obtained by clean catch procedure / Unknown 06/13/2024 11:00 AM EDT 06/13/2024 2:45 PM EDT us Linda MICHELLE LAB MICROBIOLOGY - GENERAL ORD ERABLES Final Result [facility] ([facility]) [facility] [address] [place] [address], documented in this encounter Visit Diagnoses Diagnosis Urinary tract infection, site not specified documented in this encounter Care Teams Battery Builder Relationship Specialty Start Date End Date Physician, No Pcp PCP - General 06/07/24 documented as of this encounter
== END 2024-11-17 10:52 | disposition home or self-care (01) ==
LOC: HO.HMCC 09:22
PROVIDERS: PCP Internal Medicine; Visit Provider Internal Medicine
DX: D50.9 Iron deficiency anemia, unspecified (principal); J43.1 Panlobular emphysema; F19.20 Other psychoactive substance dependence, uncomplicated; Z72.0 Tobacco use; F41.1 Generalized anxiety disorder; E78.9 Disorder of lipoprotein metabolism, unspecified; G47.9 Sleep disorder, unspecified; N20.0 Calculus of kidney; R82.90 Unspecified abnormal findings in urine

== ENCOUNTER → 2024-11-17 09:21 | Outpatient (BNVA) | payer MEDICARE, SELFPAY | PROVIDERS: PCP Internal Medicine; Visit Provider Internal Medicine | DX: R31.0 Gross hematuria (principal); F41.9 Anxiety disorder, unspecified; D64.9 Anemia, unspecified; D50.9 Iron deficiency anemia, unspecified; J43.1 Panlobular emphysema; F41.1 Generalized anxiety disorder; E78.9 Disorder of lipoprotein metabolism, unspecified; G47.9 Sleep disorder, unspecified; R82.90 Unspecified abnormal findings in urine; F19.20 Other psychoactive substance dependence, uncomplicated; F17.200 Nicotine dependence, unspecified, uncomplicated; Z87.440 Personal history of urinary (tract) infections | CPT/HCPCS: 99212 ==

== ENCOUNTER 2025-01-24 08:48 | Outpatient (AMB) | payer MEDICARE, SELFPAY ==
[2025-01-24 08:49] VITALS: BP 160/88; PULSE 111; TEMP 36.6; O2SAT 99; BMI 19.8
--- NOTE | 2025-01-24 08:49 | AM.OFFWIN_ITS ---
Intake Vital Signs 01/24/25 08:49 Height 5 ft 8 in Weight 130 lb BMI 19.8 BP 160/88 H Blood Pressure Location Lt brachial Position Sitting Pulse 111 H Pulse Source Pulse Oximeter Temp 97.9 F Temp Source Oral Pulse Oximetry (%) 99 Oxygen Delivery Method Room Air Intake Visit Reasons: EP Anxiety Intake Note: Patient presents with c/o anxiety x3 days that has not gotten better even after taking lorazepam. Patient Tobacco Use Status: Current everyday Tobacco user Allergies No Known Allergies Allergy (Verified 01/24/25 08:53) Medication List - Last Reconciled 01/24/25 by Abigail Riggs MD atorvastatin 40 mg PO DAILY 90 days cyanocobalamin (vitamin B-12) 1,000 mcg PO DAILY 90 days fluoxetine 20 mg PO QAM lorazepam 0.5 mg PO DAILY PRN 90 days Do you need a note to return to daycare/school/sports/work: No HPI EP Anxiety HPI Details History of Present Illness The patient is a 74-year-old female presenting with anxiety flare-up. Anxiety: - The patient reports a worsening of anx iety symptoms prompted by multiple life stressors. - Recent stress includes the financial b urden from lending $50,000 to her daughter, which she now views as potentially unreturnable after a legal loss. - Additional anxiety stems from the upco delaney surgery to remove a kidney stent, which follows a previous attempt that resulted in significant bleeding and required an overnight hospital stay. - The patient experiences exacerbated an xiety leading up to the surgery and reports that her prescription of lorazepam once a day is not effectively managing the symptoms. - The anxiety and overwhelming nature of these events have contributed to elevated blood pressure levels. Medical History: - History of anxiety - Hypertension - Chronic kidney stones Social History: - The patient is involved in familial fi nancial obligations, having lent $50,000 to her daughter. - The patient is under care of her grand children and resides with them, contributing to her familial support system. Problem List - Anxiety Disorder causing Panic - Chronic Kidney Stones with Stent Compl ications - Hypertension Plan - Anxiety Disorder: Continue current med ication regimen with lorazepam and increase flexibility in dosing up to three times a day if needed . Prescribe an additional 60 tablets to ensure availability. Monitor blood pressure closely. - Chronic Kidney Stones: Proceed with pl anned surgery for stent removal, as the prior attempt resulted in complications. Pre-operative clearance includes urine testing to ensure no infection is present. Follow post-operative care instructions regarding bleeding risk. - Hypertension: Emphasize management as exacerbated by psychological factors. Advise monitoring during pre- and post-operative periods to prevent hypertensive episodes. 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 Maternal Aunt Breast cancer Brother No problems noted. Sister Breast cancer Son No problems noted. Daughter No problems noted. Other Mental health disorder Social History Housing: House Alcohol intake: current Alcohol intake frequency: a few times a month Alcohol type: wine Patient Tobacco Use Status: Current everyday Tobacco user Cigarettes Per Day: 10 e-Cigarette/Vaping Use: Never Used service: No Current occupational status: retired Cognitive needs: No Hearing needs: No Vision needs: No Physical Exam Vital Signs: Last Vital Signs Temp 97.9 F 01/24/25 08:49 Pulse 111 H 01/24/25 08:49 BP 160/88 H 01/24/25 08:49 Pulse Ox 99 01/24/25 08:49 Oxygen Delivery Method Room Air 01/24/25 08:49 BMI result Body Mass Index 19.8 Assessment & Plan Assessment & Plan (1) Anxiety disorder due to general medical condition with panic attack: Code(s): F06.4 - Anxiety disorder due to known physiological condition; F41.0 - Panic disorder [episodic paroxysmal anxiety] (2) Staghorn kidney stones: Code(s): N20.0 - Calculus of kidney (3) Elevated blood pressure reading: Code(s): R03.0 - Elevated blood-pressure reading, without diagnosis of hypertension Plan Problem List - Anxiety Disorder causing Panic - Chronic Kidney Stones with Stent Complications - Hypertension Plan - Anxiety Disorder: Continue current medication regimen with lorazepam and increase flexibility in dosing up to three times a day if needed . Prescribe an additional 60 tablets to ensure availability. Monitor blood pressure closely. - Chronic Kidney Stones: Proceed with planned surgery for stent removal, as the prior attempt resulted in complications. Pre-operative clearance includes urine testing to ensure no infection is present. Follow post-operative care instructions regarding bleeding risk. - Hypertension: Emphasize management as exacerbated by psychological factors. Advise monitoring during pre- and post-operative periods to prevent hypertensive episodes. Medications: Changed From lorazepam 0.5 mg PO DAILY 90 days PRN 90 tabs 0RF anxiety F41.1 - Generalized anxiety disorder, G47.9 - Sleep disorder, unspecified To lorazepam 0.5 mg PO Q8H 60 tabs 0RF anxiety 20 days F41.1 - Generalized anxiety disorder, G47.9 - Sleep disorder, unspecified Coding Level of Care Code Est Pt Level 4 (03058) Diagnoses Anxiety disorder due to general medical condition with panic attack F06.4; F41.0 Staghorn kidney stones N20.0 Elevated blood pressure reading R03.0
--- OUTSIDE RECORDS SUMMARY | 2025-01-24 09:23 | XMS_ITS | Encounter Summary ---
Author Organization [facility] Address [address] [place] [address] Care Team Providers Care Paster Supervisor Name Role Phone Physician, No Pcp Primary Care Provider Unavaila ble Encounter Details Date Type Department Care Team (Late st Contact Info) Description 06/13/2024 Lab Requisition [facility] - Main Lab [address] [facility] [place] [address] Linda Stevenson PA [address] [place], [place] [address] Urinary tract infection, site not specified Social [...] Urine No growth 06/14/2024 10:26 AM EDT [facility] ([facility]) [facility] Urine Urine specimen obtained by clean catch procedure / Unknown 06/13/2024 11:00 AM EDT 06/13/2024 2:45 PM EDT us Linda MICHELLE LAB MICROBIOLOGY - GENERAL ORD ERABLES Final Result [facility] ([facility]) [facility] LAB [address] [place] [address], documented in this encounter Visit Diagnoses Diagnosis Urinary tract infection, site not specified documented in this encounter Care Teams Paster Supervisor Relationship Specialty Start Date End Date Physician, No Pcp PCP - General 06/07/24 documented as of this encounter
--- OUTSIDE RECORDS SUMMARY | 2025-01-24 09:23 | XMS_ITS | Encounter Summary ---
Author Organization [facility] Address [address] [place] [address] Care Team Providers Care Ship Painter Helper Name Role Phone Physician, No Pcp Primary Care Provider Unavaila ble Encounter Details Date Type Department Care Team (Late st Contact Info) Description 08/02/2024 Lab Requisition [facility] - Main Lab [address] [facility] [place] [address] Fabricio Tran, MIGUEL ANGEL [address] [place], [place] [id number] Urinary tract infection, site not specified Social [...] Date/Time Associated Diagnosis Comments CULTURE URINE Routine 08/02/2024 12:00 AM EDT Urinary tract infection, site not specified documented in this encounter Results * Culture urine (08/02/2024 12:00 AM EDT) Culture, Urine <10,000 cfu/ml, insignificant count, no further workup. 08/03/2024 2:32 PM EDT [facility] ([facility]) [facility] LAB Urine Urine specimen obtained by clean catch procedure / Unknown 08/02/2024 08/02/2024 6:33 PM EDT Fabricio MICHELLE LAB MICROBIOLOGY - GENERAL ANGELA CARLOS Final Result Performing Organization Address City/State/[facility] Co de Phone Number [facility] ([facility]) [facility] LAB [address] [place] [address], documented in this encounter Visit Diagnoses Diagnosis Urinary tract infection, site not specified documented in this encounter Care Teams Ship Painter Helper Relationship Specialty Start Date End Date Physician, No Pcp PCP - General 06/07/24 documented as of this encounter
--- OUTSIDE RECORDS SUMMARY | 2025-01-24 09:23 | XMS_ITS | Encounter Summary ---
Author Organization [facility] Address [address] [place] [address] Care Team Providers Care Vice President Corporate Communications Name Role Phone Physician, No Pcp Primary Care Provider Unavaila ble Encounter Details Date Type Department Care Team (Late st Contact Info) Description 07/06/2024 Lab Requisition [facility] - Main Lab [address] [facility] [place] [address] Linda Stevenson PA [address] [place] [address] Urinary tract infection, site not specified Social [...] no further workup 07/07/2024 1:51 PM EDT [facility] ([facility]) [facility] LAB Urine Urine specimen obtained by clean catch procedure / Unknown 07/06/2024 07/06/2024 6:30 PM EDT us Linda MICHELLE LAB MICROBIOLOGY - GENERAL ORD ERABLES Final Result [facility] ([facility]) [facility] LAB [address] [place] [address], documented in this encounter Visit Diagnoses Diagnosis Urinary tract infection, site not specified documented in this encounter Care Teams Vice President Corporate Communications Relationship Specialty Start Date End Date Physician, No Pcp PCP - General 06/07/24 documented as of this encounter
--- OUTSIDE RECORDS SUMMARY | 2025-01-24 09:23 | XMS_ITS | Encounter Summary ---
Author Organization [facility] Address [address] [place] [address] Care Team Providers Care Purchasing Manager Name Role Phone Physician, No Pcp Primary Care Provider Unavaila ble Encounter Details Date Type Department Care Team (Late st Contact Info) Description 10/05/2024 Lab Requisition [facility] - Main Lab [address] [facility] [place] [address] Gamal Hoyos MD [address] [facility] [address] [place] [address] Urinary tract infection, site not specified; Hydronephrosis with ureteral stricture, not elsewhere classified Social History Tobacco Use Types Packs/Day Years [...] Date/Time Associated Diagnosis Comments CULTURE URINE Routine 10/05/2024 12:00 AM EDT Urinary tract infection, site not specified Hydronephrosis with ureteral stricture, not elsewhere classified documented in this encounter Results * Culture urine (10/05/2024 12:00 AM EDT) Culture, Urine No growth 10/06/2024 1:43 PM EDT [facility]) [facility] Urine Urine specimen obtained by clean catch procedure / Unknown 10/05/2024 10/05/2024 7:27 PM EDT us Gamal Hoyos MD LAB MICROBIOLOGY - GENERAL ANGELA CARLOS Final Result [facility] ([facility]) [facility] [address] [place] [address], documented in this encounter Visit Diagnoses Diagnosis Urinary tract infection, site not specified Hydronephrosis with ureteral stricture, not elsewhere classified documented in this encounter Care Teams Purchasing Manager Relationship Specialty Start Date End Date Physician, No Pcp PCP - General 06/07/24 documented as of this encounter
--- OUTSIDE RECORDS SUMMARY | 2025-01-24 09:23 | XMS_ITS | Clinical Summary ---
Author Organization [facility] Address [address] [place] [address] Phone Care Team Providers Care Oil Truck Driver Name Role Phone Physician, No Pcp Primary Care Provider Unavaila ble Allergies No known active allergies Encounters Date Type Department Care Team Description 01/08/2025 Lab Requisition [facility] - Main Lab [address] [facility] [place] [address] Gamal Hoyos MD Urinary tract infection, site not specified; Calculus of kidney from Last 3 Months Social History Tobacco [...] Last Done Comments Breast Cancer Screening 1950 Colorectal Cancer Screening: Colonoscopy 1950 Zoster Vaccines (1 of 2) 02/04/2000 Falls Risk Assessment 11/05/2023 Hepatitis C Screening 11/05/2023 Medicare Annual Wellness Visit 11/05/2023 Osteoporosis Screening (Bone Density Screening) 11/05/2023 Social Influencers of Health Screening 11/05/2023 Depression Screening 04/05/2024 COVID-19 Vaccine ( season) 2024 08/01/2020, 07/11/2020 Influenza Vaccine (#1) 2024 , 01/26/2022, 01/17/2021, Additional history exists DTaP,Tdap,and Td [...] Date/Time Associated Diagnosis Comments CULTURE URINE Routine 01/08/2025 12:00 AM EDT Urinary tract infection, site not specified Calculus of kidney from Last 3 Months Results * Culture urine (01/08/2025 12:00 AM EDT) Culture, Urine 10,000-49,000 CFU/mL Mixed urogenital jhoan, no uropathogens present. Suggest repeat specimen if clinically indicated. 01/10/2025 8:36 AM EDT [facility]) [facility] Urine Urine specimen obtained by clean catch procedure / Unknown 01/08/2025 01/08/2025 1:35 PM EDT us Gamal Hoyos MD LAB MICROBIOLOGY - GENERAL ANGELA CARLOS Final Result [facility] [address] [place] [address], [place] [phone] from Last 3 Months Insurance [employer] MED[employer]ARE [employer]AGE Care Teams Oil Truck Driver Relationship Specialty Start Date End Date Physician, No Pcp PCP - General 06/07/24
--- OUTSIDE RECORDS SUMMARY | 2025-01-24 09:23 | XMS_ITS | Encounter Summary ---
Author Organization [facility] Address [address] [place] [address] Care Team Providers Care Sandblast Operator Name Role Phone Physician, No Pcp Primary Care Provider Unavaila ble Encounter Details Date Type Department Care Team (Late st Contact Info) Description 01/08/2025 Lab Requisition [facility] - Main Lab [address] [facility] [place] [phone] Gamal Hoyos MD [address] [facility] [address] [place] [address] Urinary tract infection, site not specified; Calculus of kidney Social History Tobacco Use Types Packs/Day Years [...] infection, site not specified Calculus of kidney documented in this encounter Results * Culture urine (01/08/2025 12:00 AM EDT) Culture, Urine 10,000-49,000 CFU/mL Mixed urogenital jhoan, no uropathogens present. Suggest repeat specimen if clinically indicated. 01/10/2025 8:36 AM EDT [facility] Urine Urine specimen obtained by clean catch procedure / Unknown 01/08/2025 01/08/2025 1:35 PM EDT us Gamal Hoyos MD LAB MICROBIOLOGY - GENERAL ANGELA CARLOS Final Result [facility] [address] [place] [address], documented in this encounter Visit Diagnoses Diagnosis Urinary tract infection, site not specified Calculus of kidney documented in this encounter Care Teams Sandblast Operator Relationship Specialty Start Date End Date Physician, No Pcp PCP - General 06/07/24 documented as of this encounter
== END 2025-01-24 09:05 | disposition home or self-care (01) ==
PROVIDERS: PCP Internal Medicine; Visit Provider Internal Medicine
DX: F06.4 Anxiety disorder due to known physiological condition (principal); F41.0 Panic disorder [episodic paroxysmal anxiety]; N20.0 Calculus of kidney; R03.0 Elevated blood-pressure reading, without diagnosis of hypertension

== ENCOUNTER → 2025-01-24 08:48 | Outpatient (BNVA) | payer MEDICARE, SELFPAY | PROVIDERS: PCP Internal Medicine; Visit Provider Internal Medicine | DX: F06.4 Anxiety disorder due to known physiological condition (principal); F41.0 Panic disorder [episodic paroxysmal anxiety]; N20.0 Calculus of kidney; R03.0 Elevated blood-pressure reading, without diagnosis of hypertension | CPT/HCPCS: 99212 ==

== ENCOUNTER 2025-02-16 09:29 | Outpatient (AMB) | payer MEDICARE, SELFPAY ==
[2025-02-16 09:33] VITALS: BP 142/90; PULSE 87; O2SAT 96; BMI 18.5
--- NOTE | 2025-02-16 09:33 | A.OFFPC_ITS ---
Vital Signs 02/16/25 09:33 Height 5 ft 8 in Weight 122 lb BMI 18.5 BP 142/90 H Blood Pressure Location Lt brachial Position Sitting Pulse 87 Pulse Source Pulse Oximeter Pulse Oximetry (%) 96 Oxygen Delivery Method Room Air Intake Visit Reasons: med follow up [employer] Information Clerk Required: No Accompanied by: Self / Same As Patient Allergies No Known Allergies Allergy (Verified 01/24/25 08:53) Medication List - Last Reconciled 02/16/25 by Abigail Riggs MD alprazolam 0.5 mg PO BEDTIME PRN atorvastatin 40 mg PO DAILY 90 days cyanocobalamin (vitamin B-12) 1,000 mcg PO DAILY 90 days fluoxetine 20 mg PO QAM ondansetron 4 mg PO Q8H Tobacco use date assessed: 02/16/25 Dental Screening Dental Screen Date: 02/16/25 Did you have a dental visit in the last 12 months?: No Did you have a dental problem in the last 6 months where you did not have access to dental care?: No Was dental information given to patient?: Patient declined (Has dentures) HPI med follow up HPI Details History of Present Illness The patient is a 75-year-old female presenting for medication refills and management of a recent mental health crisis. Anxiety Disorder and Substance Abuse: - The patient has a history of severe an xiety disorder and recently experienced a mental health crisis following a series of surgical procedures for a ureteral stent. - This culminated in a self-initiated em ergency room visit at [facility] on Wednesday due to high blood pressure and chest pain. - During this period, she was abusing lo razepam, taking more than prescribed, and also taking Dramamine, leading to a negative drug interaction. - Associated symptoms included anorexia, poor self-care, and suicidal ideation. - The ER psychiatric team discontinued l orazepam and started alprazolam 0.5 mg three times daily, with which the patient reports feeling significantly better. - The ER staff recommended she find a [facility] mental health therapist. - Her longstanding medications for anxie ty include fluoxetine 20 mg Nephrolithiasis: - The patient has a history of recurrent kidney stones and is established with a urologist. - She recently underwent a procedure to remove a ureteral stent left, which was complicated by incomplete removal, necessitating the placement of a back drain. - A subsequent surgery was performed to remove the drain and the remainder of the stent successfully. - She has another surgery scheduled for April and has a follow-up with her surgeon next Wednesday. Microcytic Anemia: - A CBC in August revealed she was slightly anemic, which is thought to be secondary to bleeding from her kidney stones. Gastrointestinal Symptoms: - The patient has been experiencing naus ea, which did not respond to Dramamine but has improved with Zofran from the ER. - She also reports constipation, which i s a new issue for her, and has taken Colace. - Associated symptoms include a burning sensation in the stomach and bloating, which is attributed to stress-induced acid production. - Her appetite was poor but is now impro ving. Medical History: - Severe anxiety disorder - History of suicidal ideation - Substance use disorder (lorazepam) - Microcytic anemia - Elevated liver function tests - Recurrent nephrolithiasis - Chronic Obstructive Pulmonary Disease (COPD) - Prediabetes - Tobacco use disorder - Hyperlipidemia - Insomnia - Recent emergency department visit at [facility] for mental health crisis with chest pain Social History: - Tobacco Use: Patient affirms she is st ill smoking. - Substance Use: Recently abused prescri bed lorazepam and cine-twn-kkwixmb Dramamine. - Stressors: Reports significant financi al stress related to surgical costs and pet care, which triggered her recent mental health decline. - Social Support: Patient's daughter is present and actively involved in her care and medication management. - Functional Status: Reports feeling wea k and shaky but is now getting up and eating, an improvement from recent self-neglect. - Nutrition: Appetite was poor but has s tarted to improve. Problem List - Severe anxiety disorder - Substance use disorder - Suicidal ideation - Recurrent nephrolithiasis - Microcytic anemia - Chronic Obstructive Pulmonary Disease (COPD) - Prediabetes - Hyperlipidemia - Tobacco use disorder - Insomnia - Nausea - Constipation - Elevated liver function tests Plan - Continue alprazolam 0.5 mg three times daily as prescribed by the emergency department for one month. - Continue fluoxetine at the current dos e of 20 mg; will not increase due to concern for exacerbating recent suicidal ideation. - Prescribe pantoprazole daily for one m onth for dyspeptic symptoms, to be taken on an empty stomach. - Prescribe Senokot for as-needed use fo r constipation. - Prescribe Ondansetron (Zofran) 60 tabl ets for as-needed use for nausea. - Place an order for a CBC to re-evaluat e anemia. - Request medical records from the shonna santiago's recent admission to [facility]. - Arrange for the behavioral health coor dinator, Fabiana, to meet with the patient to facilitate referral to mental health counseling. - Patient to follow-up in the clinic in one month. - Daughter will assist with medication m anagement using a weekly pill box. Review of Systems - General: No fever no chills - Neurological: No headaches no dizziness - Ear nose throat: No sore throat no hearing difficulty no ear pain - Cardiovascular: No syncope, no chest pain, no palpitations - Gastrointestinal: No vomiting or diarrhea - Endocrine: No polyuria polydipsia no heat intolerance - Genitourinary: No dysuria , no blood in urine Physical Exam General: No acute distress HEENT: No acute findings Neck: Supple Respiratory system: Able to talk in full sentences, no audible wheeze Cardiovascular: S1-S2 regular in rate and rhythm Gastrointestinal: non tender Extremities: No new findings Back : left flank with healing surgical wound with stitches BANQUET ATTENDANT: Alert awake oriented x3 motor intact Skin: Normal turgor PFSH Medical History Tobacco abuse Dysuria Lipid disorder Difficulty sleeping Anxiety, generalized Kidney stones Surgical History History of lithotripsy Family History Father COPD (chronic obstructive pulmonary disease) Mother COPD (chronic obstructive pulmonary disease) Breast cancer CHF (congestive heart failure) Colon cancer Maternal Grandmother No problems noted. Maternal Aunt Breast cancer Brother No problems noted. Sister Breast cancer Son No problems noted. Daughter No problems noted. Other Mental health disorder Social History Housing: House Alcohol intake: current Alcohol intake frequency: a few times a month Alcohol type: wine Patient Tobacco Use Status: Current everyday Tobacco user Cigarettes Per Day: 10 e-Cigarette/Vaping Use: Never Used service: No Current occupational status: retired Cognitive needs: No Hearing needs: No Vision needs: No Questionnaire Thrive Questionnaire Date Thrive assessed: 05/23/24 I am a: Patient What is your living situation today?: I have a steady place to live Within the past 12 months, did the food you bought not last and you didn't have the money to get more?: Never true Within the past 12 months, did you worry whether your food would run out before you got money to buy more?: Never true Do you have trouble paying for medicines?: No Do you have trouble getting transportation to medical appointments?: No Do you have trouble paying your heating and electricity bill?: No Do you have trouble taking care of your child, family member or friend?: No Do you have trouble with day-to-day activities such as bathing, preparing meals, shopping, managing finances, etc.?: No Are you currently unemployed and looking for a job?: No Are you interested in more education?: No Please select the resources that you would like help with: None Currently or been in a relationship where the following occur: No concerns reported THRIVE Score: 0 JOSHUA-7 AMB Questionnaire JOSHUA-7 Date JOSHUA - 7 assessed: 05/23/24 Source: Developed by Drs. Juaquin Cowart, Lizzeth Tipton, Avelino Calle and colleagues, with an educational ventura from [employer]. Physical exam (Primary Care) Vital Signs: Last Vital Signs Pulse 87 02/16/25 09:33 BP 142/90 H 02/16/25 09:33 Pulse Ox 96 02/16/25 09:33 Oxygen Delivery Method Room Air 02/16/25 09:33 BMI result Body Mass Index 18.5 Tobacco/Smoking Status: Tobacco use Status Tobacco use date assessed 02/16/25 02/16/25 09:40 Patient Tobacco Use Status Current everyday Tobacco 02/16/25 09:40 e-Cigarette/Vaping Use Never Used 02/16/25 09:40 Thrive Assessment: Date of Thrive Assessment Date Thrive assessed 05/23/24 02/16/25 09:40 Currently or been in a relationship where the following occur: No concerns reported Coding Level of Care Code Est Pt Level 5 (91090) Diagnoses Hospital discharge follow-up Z09 Emotional crisis, acute reaction to stress F43.0 Drug dependency F19.20 Renal calculus, bilateral N20.0 Microcytic anemia D50.9 Nausea R11.0 Panlobular emphysema J43.1 COPD type: emphysema Emphysema type: panlobular Anxiety, generalized F41.1 Lipid disorder E78.9 Elevated blood sugar R73.9 LFT elevation R79.89 Difficulty sleeping G47.9 Tobacco abuse Z72.0 Time Spent (min) 41 Comment face to face with daughter and patient / coordination of care Assessment & Plan Assessment & Plan (1) Hospital discharge follow-up: Code(s): Z09 - Encounter for follow-up examination after completed treatment for conditions other than malignant neoplasm Category: Medical (2) Emotional crisis, acute reaction to stress: Code(s): F43.0 - Acute stress reaction Category: Medical (3) Drug dependency: Code(s): F19.20 - Other psychoactive substance dependence, uncomplicated Category: Medical (4) Renal calculus, bilateral: Code(s): N20.0 - Calculus of kidney Category: Medical (5) Microcytic anemia: Code(s): D50.9 - Iron deficiency anemia, unspecified Category: Medical (6) Nausea: Code(s): R11.0 - Nausea Category: Medical (7) COPD (chronic obstructive pulmonary disease): Code(s): J44.9 - Chronic obstructive pulmonary disease, unspecified Category: Medical Qualifiers: COPD type: emphysema Emphysema type: panlobular Qualified Code(s): J43.1 - Panlobular emphysema (8) Anxiety, generalized: Code(s): F41.1 - Generalized anxiety disorder Category: Medical (9) Lipid disorder: Code(s): E78.9 - Disorder of lipoprotein metabolism, unspecified Category: Medical (10) Elevated blood sugar: Code(s): R73.9 - Hyperglycemia, unspecified Category: Medical (11) LFT elevation: Code(s): R79.89 - Other specified abnormal findings of blood chemistry Category: Medical (12) Difficulty sleeping: Code(s): G47.9 - Sleep disorder, unspecified Category: Medical (13) Tobacco abuse: Code(s): Z72.0 - Tobacco use Category: Medical Plan Anxiety Disorder and Substance Abuse: - The patient has a history of severe anxiety disorder and recently experienced a mental health crisis following a series of surgical procedures for a ureteral stent. - This culminated in a self-initiated emergency room visit at [facility] on Wednesday due to high blood pressure and chest pain. - During this period, she was abusing lorazepam, taking more than prescribed, and also taking Dramamine, leading to a negative drug interaction. - Associated symptoms included anorexia, poor self-care, and suicidal ideation. - The ER psychiatric team discontinued lorazepam and started alprazolam 0.5 mg three times daily, with which the patient reports feeling significantly better. - The ER staff recommended she find a geriatric mental health therapist. - Her longstanding medications for anxiety include fluoxetine 20 mg Nephrolithiasis: - The patient has a history of recurrent kidney stones and is established with a urologist. - She recently underwent a procedure to remove a ureteral stent left, which was complicated by incomplete removal, necessitating the placement of a back drain. - A subsequent surgery was performed to remove the drain and the remainder of the stent successfully. - She has another surgery scheduled for April and has a follow-up with her surgeon next Wednesday. Microcytic Anemia: - A CBC in August revealed she was slightly anemic, which is thought to be secondary to bleeding from her kidney stones. Gastrointestinal Symptoms: - The patient has been experiencing nausea, which did not respond to Dramamine but has improved with Zofran from the ER. - She also reports constipation, which is a new issue for her, and has taken Colace. - Associated symptoms include a burning sensation in the stomach and bloating, which is attributed to stress-induced acid production. - Her appetite was poor but is now improving. Medical History: - Severe anxiety disorder - History of suicidal ideation - Substance use disorder (lorazepam) - Microcytic anemia - Elevated liver function tests - Recurrent nephrolithiasis - Chronic Obstructive Pulmonary Disease (COPD) - Prediabetes - Tobacco use disorder - Hyperlipidemia - Insomnia - Recent emergency department visit at [facility] for mental health crisis with chest pain Social History: - Tobacco Use: Patient affirms she is still smoking. - Substance Use: Recently abused prescribed lorazepam and lzuc-vci-briytcr Dramamine. - Stressors: Reports significant financial stress related to surgical costs and pet care, which triggered her recent mental health decline. - Social Support: Patient's daughter is present and actively involved in her care and medication management. - Functional Status: Reports feeling weak and shaky but is now getting up and eating, an improvement from recent self-neglect. - Nutrition: Appetite was poor but has started to improve. Problem List - Severe anxiety disorder - Substance use disorder - Suicidal ideation - Recurrent nephrolithiasis - Microcytic anemia - Chronic Obstructive Pulmonary Disease (COPD) - Prediabetes - Hyperlipidemia - Tobacco use disorder - Insomnia - Nausea - Constipation - Elevated liver function tests Plan - Continue alprazolam 0.5 mg three times daily as prescribed by the emergency department for one month. - Continue fluoxetine at the current dose of 20 mg; will not increase due to concern for exacerbating recent suicidal ideation. - Prescribe pantoprazole daily for one month for dyspeptic symptoms, to be taken on an empty stomach. - Prescribe Senokot for as-needed use for constipation. - Prescribe Ondansetron (Zofran) 60 tablets for as-needed use for nausea. - Place an order for a CBC to re-evaluate anemia. - Request medical records from the patient's recent admission to [facility]. - Arrange for the behavioral health coordinator, Fabiana, to meet with the patient to facilitate referral to mental health counseling. - Patient to follow-up in the clinic in one month. - Daughter will assist with medication management using a weekly pill box. Orders: Orders Complete Blood Count Auto Diff Today D50.9 - Iron deficiency anemia, unspecified, E78.9 - Disorder of lipoprotein metabolism, unspecified, F41.1 - Generalized anxiety disorder, G47.9 - Sleep disorder, unspecified, J43.1 - Panlobular emphysema, N20.0 - Calculus of kidney, R73.9 - Hyperglycemia, unspecified, R79.89 - Other specified abnormal findings of blood chemistry, Z72.0 - Tobacco use Comprehensive Met. Panel Today D50.9 - Iron deficiency anemia, unspecified, E78.9 - Disorder of lipoprotein metabolism, unspecified, F41.1 - Generalized anxiety disorder, G47.9 - Sleep disorder, unspecified, J43.1 - Panlobular emphysema, N20.0 - Calculus of kidney, R73.9 - Hyperglycemia, unspecified, R79.89 - Other specified abnormal findings of blood chemistry, Z72.0 - Tobacco use LDL Cholesterol Direct Today D50.9 - Iron deficiency anemia, unspecified, E78.9 - Disorder of lipoprotein metabolism, unspecified, F41.1 - Generalized anxiety disorder, G47.9 - Sleep disorder, unspecified, J43.1 - Panlobular emphysema, N20.0 - Calculus of kidney, R73.9 - Hyperglycemia, unspecified, R79.89 - Other specified abnormal findings of blood chemistry, Z72.0 - Tobacco use Ferritin Today D50.9 - Iron deficiency anemia, unspecified, E78.9 - Disorder of lipoprotein metabolism, unspecified, F41.1 - Generalized anxiety disorder, G47.9 - Sleep disorder, unspecified, J43.1 - Panlobular emphysema, N20.0 - Calculus of kidney, R73.9 - Hyperglycemia, unspecified, R79.89 - Other specified abnormal findings of blood chemistry, Z72.0 - Tobacco use TSH reflex Free T4 Today D50.9 - Iron deficiency anemia, unspecified, E78.9 - Disorder of lipoprotein metabolism, unspecified, F41.1 - Generalized anxiety disorder, G47.9 - Sleep disorder, unspecified, J43.1 - Panlobular emphysema, N20.0 - Calculus of kidney, R73.9 - Hyperglycemia, unspecified, R79.89 - Other specified abnormal findings of blood chemistry, Z72.0 - Tobacco use Medications: New sennosides-docusate sodium 8.6-50 mg (Senokot-S) 1 tab-cap PO BEDTIME 90 tabs 0RF constipation 90 days K59.03 - Drug induced constipation, T40.2X5A - Adverse effect of other opioids, initial encounter alprazolam 0.5 mg PO BEDTIME 30 days PRN 90 tabs 0RF anxiety alprazolam 0.5 mg PO BEDTIME PRN 90 tabs 0RF anxiety 30 days pantoprazole 20 mg PO DAILY 90 tabs 0RF ondansetron 4 mg PO Q8H 60 tabs 0RF 30 days Refilled fluoxetine 20 mg PO QAM 90 caps 0RF atorvastatin 40 mg PO DAILY 90 tabs 0RF 90 days cyanocobalamin (vitamin B-12) 1,000 mcg PO DAILY 90 tabs 0RF 90 days
--- OUTSIDE RECORDS SUMMARY | 2025-02-16 10:28 | XMS_ITS | Encounter Summary ---
Author Organization [facility] Address [address] [place] [address] Care Team Providers Care Boiler Setter Name Role Phone Physician, No Pcp Primary Care Provider Unavaila ble Encounter Details Date Type Department Care Team (Late st Contact Info) Description 08/02/2024 Lab Requisition [facility] - Main Lab [address] [facility] [place] [address] Fabricio Tran, MIGUEL ANGEL [address] [place], [place] [id number] Urinary tract infection, site not specified Social [...] no further workup. 08/03/2024 2:32 PM EDT [facility] ([facility]) [facility] Urine Urine specimen obtained by clean catch procedure / Unknown 08/02/2024 08/02/2024 6:33 PM EDT Fabricio MICHELLE LAB MICROBIOLOGY - GENERAL ANGELA CARLOS Final Result Performing Organization Address City/State/[facility] Co de Phone Number [facility] ([facility]) [facility] [address] [place] [address], documented in this encounter Visit Diagnoses Diagnosis Urinary tract infection, site not specified documented in this encounter Care Teams Boiler Setter Relationship Specialty Start Date End Date Physician, No Pcp PCP - General 06/07/24 documented as of this encounter
--- OUTSIDE RECORDS SUMMARY | 2025-02-16 10:28 | XMS_ITS | Encounter Summary ---
Author Organization [facility] Address [address] [place] [address] Care Team Providers Care Coil Winder Name Role Phone Physician, No Pcp Primary Care Provider Unavaila ble Encounter Details Date Type Department Care Team (Late st Contact Info) Description 06/13/[address] [facility] - Main Lab [address] [facility] [place] [place] [address] Linda Stevenson PA [address] [place], [place] [phone] Urinary tract infection, site not specified Social [...] Urine No growth 06/14/2024 10:26 AM EDT [facility] ([facility]) [facility] Urine Urine specimen obtained by clean catch procedure / Unknown 06/13/2024 11:00 AM EDT 06/13/2024 2:45 PM EDT us Linda MICHELLE LAB MICROBIOLOGY - GENERAL ORD ERABLES Final Result [facility] ([facility]) [facility] [address] [place] [address], documented in this encounter Visit Diagnoses Diagnosis Urinary tract infection, site not specified documented in this encounter Care Teams Coil Winder Relationship Specialty Start Date End Date Physician, No Pcp PCP - General 06/07/24 documented as of this encounter
--- OUTSIDE RECORDS SUMMARY | 2025-02-16 10:28 | XMS_ITS | Encounter Summary ---
Author Organization [facility] Address [address] [place] [address] Care Team Providers Care Public Health Internship Name Role Phone Physician, No Pcp Primary Care Provider Unavaila ble Encounter Details Date Type Department Care Team (Late st Contact Info) Description 01/08/2025 Lab Requisition [facility] - Main Lab [address] [facility] [place] [phone] Gamal Hoyos MD [address] [facility] [address] [place] [address] Urinary tract infection, site not [...] if clinically indicated. 01/10/2025 8:36 AM EDT [facility] Urine Urine specimen obtained by clean catch procedure / Unknown 01/08/2025 01/08/2025 1:35 PM EDT us Gamal Hoyos MD LAB MICROBIOLOGY - GENERAL ANGELA CARLOS Final Result [facility] [address] [place] [address], documented in this encounter Visit Diagnoses Diagnosis Urinary tract infection, site not specified Calculus of kidney documented in this encounter Care Teams Public Health Internship Relationship Specialty Start Date End Date Physician, No Pcp PCP - General 06/07/24 documented as of this encounter
--- OUTSIDE RECORDS SUMMARY | 2025-02-16 10:28 | XMS_ITS | Encounter Summary ---
Author Organization [facility] Address [address] [place] [address] Care Team Providers Care Lead Assembler Name Role Phone Physician, No Pcp Primary Care Provider Unavaila ble Encounter Details Date Type Department Care Team (Late st Contact Info) Description 07/06/2024 Lab Requisition [facility] - Main Lab [address] [facility] [place] [address] Linda Stevensno PA [address] [place] [address] Urinary tract infection, site not specified Social [...] no further workup 07/07/2024 1:51 PM EDT [facility] ([facility]) [facility] Urine Urine specimen obtained by clean catch procedure / Unknown 07/06/2024 07/06/2024 6:30 PM EDT us Linda MICHELLE LAB MICROBIOLOGY - GENERAL ORD ERABLES Final Result [facility] ([facility]) [facility] [address] [place] [address], documented in this encounter Visit Diagnoses Diagnosis Urinary tract infection, site not specified documented in this encounter Care Teams Lead Assembler Relationship Specialty Start Date End Date Physician, No Pcp PCP - General 06/07/24 documented as of this encounter
--- OUTSIDE RECORDS SUMMARY | 2025-02-16 10:28 | XMS_ITS | Encounter Summary ---
Author Organization [facility] Address [address] [place] [address] Care Team Providers Care Joist Setter Name Role Phone Physician, No Pcp Primary Care Provider Unavaila ble Encounter Details Date Type Department Care Team (Late st Contact Info) Description 10/05/[address] [facility] - Main Lab [address] [facility] [place] [address] Gamal Hoyos MD [address] [facility] [address] [place] [address] Urinary tract infection, site not [...] No growth 10/06/2024 1:43 PM EDT [facility] ([facility]) [facility] Urine Urine specimen obtained by clean catch procedure / Unknown 10/05/2024 10/05/2024 7:27 PM EDT us Gamal Hoyos MD LAB MICROBIOLOGY - GENERAL ANGELA CARLOS Final Result [facility] ([facility]) [facility] [address] [place] [address], documented in this encounter Visit Diagnoses Diagnosis Urinary tract infection, site not specified Hydronephrosis with ureteral stricture, not elsewhere classified documented in this encounter Care Teams Joist Setter Relationship Specialty Start Date End Date Physician, No Pcp PCP - General 06/07/24 documented as of this encounter
--- OUTSIDE RECORDS SUMMARY | 2025-02-16 10:28 | XMS_ITS | Encounter Summary ---
Author Organization [facility] Address [address] [place] [address] Care Team Providers Care Mill Manager Name Role Phone Physician, No Pcp Primary Care Provider Unavaila ble Encounter Details Date Type Department Care Team (Late st Contact Info) Description 01/31/2025 Lab Requisition [facility] - Main Lab [address] [facility] [place] [address] Gamal Hoyos MD [address] [place] [address] [place] [address] Urinary tract infection, site not [...] Date/Time Associated Diagnosis Comments CULTURE URINE Routine 01/31/2025 3:00 PM EDT Urinary tract infection, site not specified Calculus of kidney documented in this encounter Results * (ABNORMAL) Culture urine (01/31/2025 3:00 PM EDT) Culture, Urine >=100,000 CFU/mL Aerococcus urinae(A) SCOTT 2025 9:55 AM EDT [facility] Comment: Susceptibility testing not routinely performed. If further therapeutic information is required, please consult an infectious disease specialist. This is an edited result. Previous organism was Streptococcus alpha-hemolytic on 02/01/2025 at 0813 EDT. Culture, Urine 50,000-100,000 CFU/mL Corynebacterium species(A) SCOTT 2025 9:55 AM EDT [facility] Comment: The organism value for this result has been updated. These results have been appended to the previously preliminary verified report. Urine Urine specimen from nephrostomy tube / Unknown 01/31/2025 3:00 PM EDT 01/31/2025 6:21 PM EDT us Gamal Hoyos MD LAB MICROBIOLOGY - GENERAL ANGELA CARLOS Final Result [facility] [address] [place] [address], documented in this encounter Visit Diagnoses Diagnosis Urinary tract infection, site not specified Calculus of kidney documented in this encounter Care Teams Mill Manager Relationship Specialty Start Date End Date Physician, No Pcp PCP - General 06/07/24 documented as of this encounter
--- OUTSIDE RECORDS SUMMARY | 2025-02-16 10:29 | XMS_ITS | Clinical Summary ---
Author Organization [facility] Address [address] [place] [address] Phone Care Team Providers Care Metal Furrer Name Role Phone Physician, No Pcp Primary Care Provider Unavaila ble Allergies No known active allergies Encounters Date Type Department Care Team Description 01/31/2025 Lab Requisition [facility] [address] [facility] [place] [phone] Gamal Hoyos MD Urinary tract infection, site not specified; Calculus of kidney 01/08/2025 Lab Requisition [facility] [address] [facility] [place] [phone] Gamal Hoyos MD Urinary tract infection, site [...] Health Maintenance Due Date Last Done Comments Colorectal Cancer Screening: Colonoscopy 1950 Zoster Vaccines [...] infection, site not specified Calculus of kidney CULTURE URINE Routine 01/08/2025 12:00 AM EDT Urinary tract infection, site not specified Calculus of kidney from Last 3 Months Results * (ABNORMAL) Culture urine (01/31/2025 3:00 PM EDT) Only the most recent of2 resultswithin the time period is included. Culture, Urine >=100,000 CFU/mL Aerococcus urinae(A) SCOTT 2025 9:55 AM EDT [facility] ([facility]) [facility] Comment: Susceptibility testing not routinely performed. If further therapeutic information is required, please consult an infectious disease specialist. This is an edited result. Previous organism was Streptococcus alpha-hemolytic on 02/01/2025 at 0813 EDT. Culture, Urine 50,000-100,000 CFU/mL Corynebacterium species(A) SCOTT 2025 9:55 AM EDT [facility] ([facility] Comment: The organism value for this result has been updated. These results have been appended to the previously preliminary verified report. Urine Urine specimen from nephrostomy tube / Unknown 01/31/2025 3:00 PM EDT 01/31/2025 6:21 PM EDT us Gamal Hoyos MD LAB MICROBIOLOGY - GENERAL ANGELA CARLOS Final Result [facility] ([facility] [address] [place] [address], from Last 3 Months Insurance [employer] Care Teams Metal Furrer Relationship Specialty Start Date End Date Physician, No Pcp PCP - General 06/07/24
== END 2025-02-16 10:02 | disposition home or self-care (01) ==
LOC: HO.HMCC 09:29
PROVIDERS: PCP Internal Medicine; Visit Provider Internal Medicine
DX: Z09 Encounter for follow-up examination after completed treatment for conditions other than malignant neoplasm (principal); F43.0 Acute stress reaction; F19.20 Other psychoactive substance dependence, uncomplicated; N20.0 Calculus of kidney; D50.9 Iron deficiency anemia, unspecified; R11.0 Nausea; J43.1 Panlobular emphysema; F41.1 Generalized anxiety disorder; E78.9 Disorder of lipoprotein metabolism, unspecified; R73.9 Hyperglycemia, unspecified; R79.89 Other specified abnormal findings of blood chemistry; G47.9 Sleep disorder, unspecified; Z72.0 Tobacco use

== ENCOUNTER → 2025-02-16 09:29 | Outpatient (BNVA) | payer MEDICARE, SELFPAY | PROVIDERS: PCP Internal Medicine; Visit Provider Internal Medicine | DX: F43.0 Acute stress reaction (principal); F19.20 Other psychoactive substance dependence, uncomplicated; N20.0 Calculus of kidney; D50.9 Iron deficiency anemia, unspecified; R11.0 Nausea; J43.1 Panlobular emphysema; F41.1 Generalized anxiety disorder; R73.03 Prediabetes; E78.9 Disorder of lipoprotein metabolism, unspecified; R79.89 Other specified abnormal findings of blood chemistry; G47.9 Sleep disorder, unspecified; Z72.0 Tobacco use; Z79.899 Other long term (current) drug therapy; Z09 Encounter for follow-up examination after completed treatment for conditions other than malignant neoplasm | CPT/HCPCS: 99212 ==

== ENCOUNTER 2025-03-16 09:34 | Outpatient (AMB) | payer MEDICARE, SELFPAY ==
[2025-03-16 09:37] VITALS: BP 130/86; PULSE 108; O2SAT 100; BMI 19.0
--- NOTE | 2025-03-16 09:37 | A.OFFPC_ITS ---
Vital Signs 03/16/25 09:37 Height 5 ft 8 in Weight 125 lb BMI 19.0 BP 130/86 Blood Pressure Location Lt brachial Position Sitting Pulse 108 H Pulse Source Pulse Oximeter Pulse Oximetry (%) 100 Oxygen Delivery Method Room Air Intake Visit Reasons: 4 week follow up Allergies No Known Allergies Allergy (Verified 03/16/25 09:38) Medication List - Last Reconciled 03/16/25 by Abigail Riggs MD alprazolam 0.5 mg PO BEDTIME PRN 30 days atorvastatin 40 mg PO DAILY 90 days cyanocobalamin (vitamin B-12) 1,000 mcg PO DAILY 90 days fluoxetine 20 mg PO QAM ondansetron 4 mg PO Q8H 30 days pantoprazole 20 mg PO DAILY sennosides-docusate sodium 8.6-50 mg (Senokot-S) 1 tab-cap PO BEDTIME 90 days Tobacco use date assessed: 02/16/25 Fall risk assessment: No Falls in past year Last assessed Fall Risk: 03/16/25 Dental Screening Dental Screen Date: 02/16/25 HPI HPI Comments History of Present Illness Details History of Present Illness The patient is a 75 year old female presenting for a 4-week follow-up appointment after a mental health crisis. Mental health crisis with anxiety: - The patient was seen four weeks prior on February 16 following a mental health crisis, where she intentionally overdosed on lorazepam due to feeling overwhelmed by her medical issues. - She was prescribed alprazolam 0.5 mg t hree times daily upon discharge from the hospital. - The patient reports feeling better and like herself again since the incident. - She was previously taking fluoxetine 2 0 mg but discontinued it and reports feeling better without it. - She is currently taking half of a 0.5 mg alprazolam tablet daily. - She is on a waiting list for mental alth services. Urolithiasis: - The patient has left urolithiasis and is having difficulty with treatment, which requires ureteral stents. - The stents are left in for three to fo ur months at a time, which causes her significant anxiety. - She is scheduled for another procedure for her kidneys in May. Chronic Obstructive Pulmonary Disease (COPD): - The patient has a history of COPD and continues to smoke. - She acknowledges the high cost of ciga rettes as a motivation to quit. Medical History: - History of mental health crisis rich g to hospitalization. - History of lorazepam abuse/overdose. - Left urolithiasis requiring ureteral s tents. - Chronic Obstructive Pulmonary Disease (COPD). - Insomnia. - Dyspepsia. - Constipation. Surgical History: - Prior surgery with ureteral stent plac ement. Medications: - Atorvastatin 40 mg. - Pantoprazole for dyspepsia. - Senna as needed for constipation. - Alprazolam 0.5 mg, taking one half tab let daily for anxiety. Social History: - Substance Use: She continues to smoke tobacco, but notes she has been trying to cut back due to the cost. - Living Situation: She lives alone and is contemplating selling her large house. - She is considering moving into a condo or possibly living with her son. - She has a 15-year-old dog that is her observer helper, which complicates potential moving plans. - Social Support: Her daughter provides significant support, checking on her daily and bringing her food. Diagnostic Results: - Labs: Recent labs performed during her hospital admission were reviewed and noted to be stable. [facility] Medical History Tobacco abuse Dysuria Lipid disorder Difficulty sleeping Anxiety, generalized Kidney stones Surgical History History of lithotripsy Family History Father COPD (chronic obstructive pulmonary disease) Mother COPD (chronic obstructive pulmonary disease) Breast cancer CHF (congestive heart failure) Colon cancer Maternal Grandmother No problems noted. Maternal Aunt Breast cancer Brother No problems noted. Sister Breast cancer Son No problems noted. Daughter No problems noted. Other Mental health disorder Social History Housing: House Alcohol intake: current Alcohol intake frequency: a few times a month Alcohol type: wine Patient Tobacco Use Status: Current everyday Tobacco user Cigarettes Per Day: 10 e-Cigarette/Vaping Use: Never Used service: No Current occupational status: retired Cognitive needs: No Hearing needs: No Vision needs: No Questionnaire Thrive Questionnaire Date Thrive assessed: 05/23/24 I am a: Patient What is your living situation today?: I have a steady place to live Within the past 12 months, did the food you bought not last and you didn't have the money to get more?: Never true Within the past 12 months, did you worry whether your food would run out before you got money to buy more?: Never true Do you have trouble paying for medicines?: No Do you have trouble getting transportation to medical appointments?: No Do you have trouble paying your heating and electricity bill?: No Do you have trouble taking care of your child, family member or friend?: No Do you have trouble with day-to-day activities such as bathing, preparing meals, shopping, managing finances, etc.?: No Are you currently unemployed and looking for a job?: No Are you interested in more education?: No Please select the resources that you would like help with: None Currently or been in a relationship where the following occur: No concerns reported THRIVE Score: 0 JOSHUA-7 AMB Questionnaire JOSHUA-7 Date JOSHUA - 7 assessed: 05/23/24 Source: Developed by Drs. Juaquin Cowart, Lizzeth Tipton, Avelino Calle and colleagues, with an educational ventura from [employer]. Review of Systems Narrative Review of Systems - General: No fever no chills - Neurological: No headaches no dizziness - Ear nose throat: No sore throat no hearing difficulty no ear pain - Cardiovascular: No syncope, no chest pain, no palpitations - Gastrointestinal: No nausea vomiting or diarrhea - Endocrine: No polyuria polydipsia no heat intolerance - Genitourinary: No dysuria , no blood in urine Physical exam (Primary Care) Vital Signs: Last Vital Signs Pulse 108 H 03/16/25 09:37 BP 130/86 03/16/25 09:37 Pulse Ox 100 03/16/25 09:37 Oxygen Delivery Method Room Air 03/16/25 09:37 BMI result Body Mass Index 19.0 Tobacco/Smoking Status: Tobacco use Status Tobacco use date assessed 02/16/25 03/16/25 09:39 Patient Tobacco Use Status Current everyday Tobacco 03/16/25 09:39 e-Cigarette/Vaping Use Never Used 03/16/25 09:39 Thrive Assessment: Date of Thrive Assessment Date Thrive assessed 05/23/24 03/16/25 09:39 Currently or been in a relationship where the following occur: No concerns reported Narrative Physical Exam - General: No acute distress - HEENT: No acute findings - Neck: Supple - Respiratory system: Able to talk in full sentences, no audible wheeze - Cardiovascular: S1-S2 regular in rate and rhythm - Gastrointestinal: No pain - Extremities: No new findings - SLIPCOVER CUTTER: Alert awake oriented x3 motor intact - Skin: Normal turgor Coding Level of Care Code Est Pt Level 4 (78680) Add On Problem Visit Only Diagnoses Renal calculus, bilateral N20.0 Nausea R11.0 Panlobular emphysema J43.1 COPD type: emphysema Emphysema type: panlobular Anxiety, generalized F41.1 Difficulty sleeping G47.9 Tobacco abuse Z72.0 Dyspepsia R10.13 Assessment & Plan Assessment & Plan (1) Renal calculus, bilateral: Code(s): N20.0 - Calculus of kidney Category: Medical (2) Nausea: Code(s): R11.0 - Nausea Category: Medical (3) COPD (chronic obstructive pulmonary disease): Code(s): J44.9 - Chronic obstructive pulmonary disease, unspecified Category: Medical Qualifiers: COPD type: emphysema Emphysema type: panlobular Qualified Code(s): J43.1 - Panlobular emphysema (4) Anxiety, generalized: Code(s): F41.1 - Generalized anxiety disorder Category: Medical (5) Difficulty sleeping: Code(s): G47.9 - Sleep disorder, unspecified Category: Medical (6) Tobacco abuse: Code(s): Z72.0 - Tobacco use Category: Medical (7) Dyspepsia: Code(s): R10.13 - Epigastric pain Category: Medical Plan Problem List - Anxiety - Urolithiasis - Chronic Obstructive Pulmonary Disease (COPD) - Dyspepsia - Constipation - Tobacco use - Insomnia Plan - Continue atorvastatin 40 mg. - Continue pantoprazole for dyspepsia. - Prescribe alprazolam 0.25 mg to be taken once daily as needed, instead of her current practice of splitting a 0.5 mg tablet. A new prescription will be sent. - Prescribe ondansetron (Zofran) as requested by the patient for as-needed use. A new prescription will be sent. - The patient will continue to follow up with mental health services and is currently on a waitlist. - Schedule a follow-up appointment in approximately three months. Medications: Changed From alprazolam 0.5 mg PO BEDTIME 30 days PRN 90 tabs 0RF anxiety To alprazolam 0.25 mg PO BEDTIME PRN 30 tabs 2RF anxiety 30 days Refilled pantoprazole 20 mg PO DAILY 90 tabs 0RF ondansetron 4 mg PO Q8H 60 tabs 0RF 30 days Discontinued fluoxetine Discontinued Reason: Doctor's Order 20 mg PO QAM 90 caps 0RF
== END 2025-03-16 09:55 | disposition home or self-care (01) ==
LOC: HO.HMCC 09:35
PROVIDERS: PCP Internal Medicine; Visit Provider Internal Medicine
DX: N20.0 Calculus of kidney (principal); R11.0 Nausea; J43.1 Panlobular emphysema; F41.1 Generalized anxiety disorder; G47.9 Sleep disorder, unspecified; Z72.0 Tobacco use; R10.13 Epigastric pain

== ENCOUNTER → 2025-03-16 09:34 | Outpatient (BNVA) | payer MEDICARE, SELFPAY | PROVIDERS: PCP Internal Medicine; Visit Provider Internal Medicine | DX: F41.1 Generalized anxiety disorder (principal); N20.0 Calculus of kidney; R10.13 Epigastric pain; R11.0 Nausea; K59.00 Constipation, unspecified; J43.1 Panlobular emphysema; G47.9 Sleep disorder, unspecified; Z72.0 Tobacco use | CPT/HCPCS: 99212 ==